=== PATIENT | female | born 1960 | race Caucasian/White ===

== ENCOUNTER 2017-01-07 10:57 | Inpatient (IN) | payer OTHER ==
[~2017-01-07] VITALS: Ht 162.6 cm; Wt 72.6 kg
[~2017-01-07 10:57] MED LIST: BENZ1TAB PO; CLON-352 PO; GABA300 PO; LISI-360 PO; LORTA5 PO; TRAM50 PO; VIST50CA PO; ZIPR40 PO
[2017-01-07 10:58] VITALS: BP 211/125; PULSE 136; RESP 20; TEMP 99.1; O2SAT 98
[2017-01-07 11:21] VITALS: BP 182/112; PULSE 130; RESP 18; TEMP 98.8; O2SAT 97
[2017-01-07] MEDS ORDERED: LORazepam 2 MG/ML VIAL IV PUSH ONE (11:45)
[2017-01-07] MEDS ORDERED: SODIUM CHLOR 0.9% 1000 ML INJ 1,000 ML IV ONE (11:45)
--- NOTE | 2017-01-07 12:06 | RADRPT ---
EXAM DATE/TIME: 01/07/2017 11:54 [place] COMPARISON: No previous studies available for comparison. INDICATIONS : Chest pains with shortness of breath. MEDICAL HISTORY : None. SURGICAL HISTORY : None. ENCOUNTER: Initial ACUITY: 1 day PAIN SCORE: 2/10 LOCATION: Bilateral chest FINDINGS: A single view of the chest demonstrates the lungs to be symmetrically aerated without evidence of mas s, infiltrate or effusion. The cardiomediastinal contours are unremarkable. Osseous structures are intact. CONCLUSION: No acute disease. Nikhil Marie Jr., MD on January 07, 2017 at 12:01 Board Certified Radiologist. This report was verified electronically.
[2017-01-07 12:23] LABS: AUTOMATED NEUTROPHIL # 6.7 TH/MM3 (1.8-7.7); BASOPHIL % 0.2 % (0.0-2.0); EOSINOPHIL % 0.4 % (0.0-4.0); HEMATOCRIT 43.6 % (35.0-46.0); HEMO FLAGS DIFF FINAL; LYMPH % 20.5 % (9.0-44.0); LYMPHOCYTE # 1.9 TH/MM3 (1.0-4.8); MEAN CELL VOLUME 88.9 FL (80.0-100.0); MEAN CORPUSCULAR HEMOGLOBIN 30.7 PG (27.0-34.0); MEAN CORPUSCULAR HGB CONC 34.6 % (32.0-36.0); MONO % 4.7 % (0.0-8.0); NEUT % 74.2 % (16.0-70.0); PLATELET COUNT 254 TH/MM3 (150-450); RED CELL DISTRIBUTION WIDTH 13.6 % (11.6-17.2); WHITE BLOOD COUNT 9.1 TH/MM3 (4.0-11.0)
[2017-01-07 12:56] LABS: ANION GAP 11 MEQ/L (5-15); AST (GOT) 16 U/L (15-37); BICARBONATE 23.4 MEQ/L (21.0-32.0); BLOOD UREA NITROGEN 19 MG/DL (7-18); CHLORIDE 104 MEQ/L (98-107); GLOMERULAR FILTRATION RATE 65 ML/MIN (>89); SODIUM (NA) 138 MEQ/L (136-145)
[2017-01-07 12:57] LABS: ALCOHOL LESS THAN 3 MG/DL (0-5)
[2017-01-07 13:00] LABS: POTASSIUM 2.9 MEQ/L (3.5-5.1)
[2017-01-07 13:02] LABS: ALKALINE PHOSPHATASE 68 U/L (45-117); ALT (GPT) 20 U/L (10-53); TOTAL BILIRUBIN ADULT 0.7 MG/DL (0.2-1.0)
[2017-01-07 13:03] LABS: ACETAMINOPHEN LESS THAN 2.0 MCG/ML (10.0-30.0)
[2017-01-07] MEDS ORDERED: HALOPERIDOL LACTATE 5 MG/ML AMP IM ONE (13:15)
[2017-01-07] MEDS ORDERED: POTASSIUM CHLORIDE 10 MEQ CONTROLLED RELEASE TAB PO ONE (13:15)
[2017-01-07 13:19] VITALS: BP 147/102; PULSE 114; RESP 18; O2SAT 99
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
[2017-01-07 13:53] LABS: BLOOD, URINE SMALL (NEG); COMMENT (UR) CULT NOT INDICATED; CULTURE IF INDICATED CULT NOT INDICATED; GLUCOSE,URINE NEG (NEG); HYALINE CAST, URINE 4 /lpf (RARE); KETONE, URINE 40 mg/dL (NEG); MUCUS URINE FEW /lpf (OCC); NITRITE,URINE NEG (NEG); SQUAMOUS EPITHELIAL CELL URINE 4 /hpf (0-5); URINE COLOR YELLOW (YELLW/STRAW)
[2017-01-07 17:07] VITALS: BP 164/107; PULSE 87; RESP 16; O2SAT 99
[2017-01-07 18:00] VITALS: BP 160/100; PULSE 93; RESP 18
[2017-01-08 02:19] VITALS: BP 160/90; PULSE 108; RESP 18; O2SAT 100
[2017-01-08] MEDS ORDERED: VIST50CA PO (06:22)
[2017-01-08] MEDS ORDERED: LISI10TA3 PO (06:22)
[2017-01-08] MEDS ORDERED: TRAM50TA PO (06:22)
[2017-01-08] MEDS ORDERED: GEOD80CA PO (06:22)
[2017-01-08] MEDS ORDERED: HYDR-3516 PO (06:22)
[2017-01-08] MEDS ORDERED: BENZ0.5T PO (06:22)
[2017-01-08] MEDS ORDERED: CLON0.1T PO (06:22)
[2017-01-08] MEDS ORDERED: GABA600T PO (06:22)
[2017-01-08 06:24] VITALS: BP 190/100; PULSE 92; RESP 18; TEMP 96.8; O2SAT 100
[2017-01-08] MEDS ORDERED: LISINOPRIL 10 MG TAB PO ONE (06:45)
[2017-01-08] MEDS ORDERED: cloNIDine HCL 0.2 MG TAB PO ONE (06:45)
[2017-01-08] MEDS ORDERED: MAGNESIUM HYDROXIDE SUSP 30 ML CUP PO PRN (09:45)
[2017-01-08] MEDS ORDERED: LORazepam 2 MG/ML VIAL IM PRN (09:45)
[2017-01-08] MEDS ORDERED: ALUMINUM/MAGNESIUM/SIMETH 30 ML CUP PO PRN (09:45)
[2017-01-08] MEDS ORDERED: diphenhydrAMINE HCL 50 MG/ML VIAL IM PRN (09:45)
[2017-01-08] MEDS ORDERED: LORazepam 1 MG TAB PO PRN (09:45)
--- NOTE | 2017-01-08 09:59 | HHI.HP ---
Provisional Diagnosis Admission Date Jan 08, 2017 at 09:44 [place]. Schizoaffective disorder, bipolar type Certification of Person's Competence To Provide Express and Informed Consent I have personally examined Lisette Plunkett , a person being served at [facility] on, Jan 08, 2017 09:48. Express and informed consent means consent voluntarily given in writing, by a competent person, after sufficient explanation and disclosure of the subject matter involved to enable the person to make a knowing and willful decision without any element of force, fraud, deceit, duress, or other form of constraint or coercion. This person is 18 years of age or older, is not now known to be incompetent to consent to treatment with a guardian advocate, and does not have a health care surrogate or proxy currently making medical treatment decisions. I have found this person to be one of the following: [] Competent to provide express and informed consent, as defined above, for voluntary admission to this facility and is competent to provide express and informed consent for treatment. He/she has the consistent capacity to make well reasoned, willful, and knowing decisions concerning his or her medical or mental health treatment. The person fully and consistently understands the purpose of the admission for examination/placement and is fully capable of personally exercising all rights assured [place] [X] Incompetent to provide express and informed consent to voluntary admission, and this is incompetent to provide express and informed consent to treatment. The person must be transferred to involuntary status and a petition for a guardian advocate filed with the Circuit Court. [] Refusing to provide express and informed consent to voluntary admission but is competent to provide express and informed consent for treatment. The person must be discharged or transferred to involuntary status. Form shall be completed within 24 hours of a person's arrival at the receiving facility and filed in the clinical record of each person: 1. Admitted on a voluntary basis 2. Permitted to provide express and informed consent to his/her own treatment 3. Allowed to transfer from involuntary to voluntary status 4. Prior to permitting a person to consent to his or her own treatment after having been previously found incompetent to consent to treatment. History of Present Illness Capacity: Lacks Capacity HPI 56-year-old female, grossly psychotic, poor historian, brought in voluntarily by her daughter but placed under a Saab act by [facility] ED physician. Patient continues to demonstrate significant looseness of associations and bizarre nonsensical remarks. 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 Intermittently, she is able to provide pieces of information such as treatment in [place] and a diagnosis of schizoaffective disorder. She also recognizes psychotropic medicines and is willing to take Zyprexa and Klonopin in the emergency department, although she requests Xanax and Ambien. She had difficulty with the examination in the emergency department due to her inability to follow direction. The patient has reportedly been out of medication for weeks. At this moment, she is yelling threats at the psychiatric emergency department staff. She is obviously paranoid and claims to be persecuted by her sister. Review of Systems Psychiatric: COMPLAINS OF: Agitation, Delusions Except as stated in HPI: all other systems reviewed are Neg Past Psych History Psychological trauma history Unknown psychological trauma. Patient does admit to previous psychiatric treatment in [place]. Violence risk - others (6 mos) High Violence risk - self (6 mos) Moderate to high. Substance Abuse History Drugs/Alcohol past 12 months Denied. Patient's toxicology screen is noted to be positive for cannabinoids. Past Family Social History Coded Allergies: No Known Allergies (Verified Adverse Reaction, Unknown, 01/07/17) Reported Medications Benztropine (Benztropine) 0.5 Mg Tab, 1 MG PO BID, #60 TAB 0 Refills 01/08/17 Clonidine (Clonidine) 0.1 Mg Tab, 0.1 MG PO Q12HR for Blood Pressure Management , #60 TAB 0 Refills 01/08/17 Gabapentin (Gabapentin) 600 Mg Tab, 600 MG PO TID, #90 TAB 0 Refills 01/08/17 Hydrocodone/Acetaminophen (Hydrocodone-Acetamin 5-325 mg) 5 Mg-325 Mg Tablet, 1 TAB PO Q6HR for Pain 01/08/17 Hydroxyzine Pamoate (Vistaril) 50 Mg Cap, 50 MG PO Q6HR Y for MILD ANXIETY, CAP 0 Refills 01/08/17 Lisinopril (Lisinopril) 10 Mg Tab, 10 MG PO Q12HR, #30 TAB 0 Refills 01/08/17 Tramadol (Tramadol) 50 Mg Tab, 50 MG PO TID Y for PAIN SCALE 6 TO 10, TAB 0 Refills 01/08/17 Ziprasidone (Geodon) 80 Mg Cap, 160 MG PO HS, #60 CAP 0 Refills 01/08/17 Current Medications Medications (Trade) Dose Ordered Sig/Juliano Route Start Time Stop Time Status Last Admin (ZyPREXA ZYDIS ODT) 10 mg ONCE ONCE PO 01/08/17 09:45 01/08/17 09:46 UNV (KlonoPIN) 1 mg ONCE ONCE PO 01/08/17 09:45 01/08/17 09:46 UNV (Ativan) 1 mg Q6H PRN PO 01/08/17 09:45 UNV (Ativan Inj) 1 mg Q6H PRN IM 01/08/17 09:45 UNV (Benadryl) 50 mg Q6H PRN PO 01/08/17 09:45 UNV (Mag-Al Plus Susp Liq) 30 ml Q6H PRN PO 01/08/17 09:45 UNV Family Psych History Unknown. Patient poor historian. Social History Unemployed. States she is currently homeless. States she has a common law in [place]. Admits to being off medications. Denies substance abuse. Patient's Strengths (min. 2) Resilient and has access to healthcare. Physical Exam GENERAL: SKIN: Warm and dry. HEAD: Normocephalic. EYES: No scleral icterus. No injection or drainage. NECK: Supple, trachea midline. No JVD or lymphadenopathy. CARDIOVASCULAR: Regular rate and rhythm without murmurs, gallops, or rubs. RESPIRATORY: Breath sounds equal bilaterally. No accessory muscle use. GASTROINTESTINAL: Abdomen soft, non-tender, nondistended. MUSCULOSKELETAL: No cyanosis, or edema. BACK: Nontender without obvious deformity. No CVA tenderness. Vital Signs Vital Signs Date Time Temp Pulse Resp B/P (MAP) Pulse Ox O2 Delivery O2 Flow Rate FiO2 01/08/17 06:24 96.8 92 18 () 100 190/100 (130) 01/08/17 02:19 Room Air Lab Results Test 01/07/17 11:50 01/07/17 13:25 White Blood Count 9.1 TH/MM3 Red Blood Count 4.90 MIL/MM3 Hemoglobin 15.1 GM/DL Hematocrit 43.6 % Mean Corpuscular Volume 88.9 FL Mean Corpuscular Hemoglobin 30.7 PG Mean Corpuscular Hemoglobin Concent 34.6 % Red Cell Distribution Width 13.6 % Platelet Count 254 TH/MM3 Mean Platelet Volume 7.7 FL Neutrophils (%) (Auto) 74.2 % Lymphocytes (%) (Auto) 20.5 % Monocytes (%) (Auto) 4.7 % Eosinophils (%) (Auto) 0.4 % Basophils (%) (Auto) 0.2 % Neutrophils # (Auto) 6.7 TH/MM3 Lymphocytes # (Auto) 1.9 TH/MM3 Monocytes # (Auto) 0.4 TH/MM3 Eosinophils # (Auto) 0.0 TH/MM3 Basophils # (Auto) 0.0 TH/MM3 CBC Comment DIFF FINAL Differential Comment Blood Urea Nitrogen 19 MG/DL Creatinine 0.90 MG/DL Random Glucose 140 MG/DL Total Protein 8.3 GM/DL Albumin 4.1 GM/DL Calcium Level 9.1 MG/DL Alkaline Phosphatase 68 U/L Aspartate Amino Transf (AST/SGOT) 16 U/L Alanine Aminotransferase (ALT/SGPT) 20 U/L Total Bilirubin 0.7 MG/DL Sodium Level 138 MEQ/L Potassium Level 2.9 MEQ/L Chloride Level 104 MEQ/L Carbon Dioxide Level 23.4 MEQ/L Anion Gap 11 MEQ/L Estimat Glomerular Filtration Rate 65 ML/MIN Salicylates Level 5.5 MG/DL Acetaminophen Level LESS THAN 2.0 MCG/ML Ethyl Alcohol Level LESS THAN 3 MG/DL Urine Color YELLOW Urine Turbidity CLEAR Urine pH 6.0 Urine Specific [place] 1.017 Urine Protein 30 mg/dL Urine Glucose (UA) NEG mg/dL Urine Ketones 40 mg/dL Urine Occult Blood SMALL Urine Nitrite NEG Urine Bilirubin NEG Urine Urobilinogen 2.0 MG/DL Urine Leukocyte Esterase NEG Urine RBC 2 /hpf Urine WBC 3 /hpf Urine Squamous Epithelial Cells 4 /hpf Urine Hyaline Casts 4 /lpf Urine Mucus FEW /lpf Microscopic Urinalysis Comment CULT NOT INDICATED Urine Opiates Screen NEG Urine Barbiturates Screen NEG Urine Amphetamines Screen NEG Urine Benzodiazepines Screen NEG Urine Cocaine Screen NEG Urine Cannabinoids Screen POS Mental Status Examination Appearance: Disheveled Consciousness: Alert Orientation: Person Motor Activity: Normal gait Speech: Rapid Language: Adequate Fund of Knowledge: Adequate Attention and Concentration: Inadequate Memory: Impaired Mood: Oppositional, Irritable Affect: Irritable, Labile Thought Process & Associations: Loose associations Thought Content: Appropriate Hallucination Type: None Delusion Type: Bizarre, Paranoid Suicidal Ideation: No Suicidal Plan: No Suicidal Intention: No Homicidal Ideation: Yes Homicidal Plan: No Homicidal Intention: No Insight: Poor Judgment: Poor Assessment & Plan Problem List: (1) Schizoaffective disorder, bipolar type ICD Codes: F25.0 - Schizoaffective disorder, bipolar type Assessment & Plan Estimated LOS: days. 56-year-old female Saab acted by emergency department physician for highly agitated highly psychotic behavior. Patient remains grossly psychotic and is yelling, threatening staff, obviously unable to care for herself and very disorganized. For these reasons she is being admitted for further evaluation and treatment. In the emergency department, we are ordering Klonopin and Zyprexa to attempt to reduce this patient's agitation and anxiety. This physician has also ordered a CBC and comprehensive metabolic panel to determine if the patient has any infectious process or metabolic process which might be causing or contributing to her psychosis. Additionally, this physician ordered a thyroid-stimulating hormone level, vitamin B-12 level and vitamin D level to determine if any deficiency in these areas is causing or contributing to her psychosis. This physician notes the patient has a history of hypertension and placed her back on antihypertensive medicines as well as consulting the hospitalist for further evaluation and treatment. Additionally, an EKG was ordered to determine the patient's cardiac conduction status prior to making significant changes in psychotropic medicines, which might adversely affect her conduction system. This physician spoke with the patient's nurse, Kirk, regarding the patient's recent behavior and apparently the patient has been yelling and threatening staff and making little or no sense 4 hours. Finally, this physician is requesting case management become involved for further information gathering and disposition planning. Francisco Morrison MD Jan 08, 2017 09:59
[2017-01-08] MEDS ORDERED: clonazePAM 1 MG TAB PO ONE (10:00)
[2017-01-08] MEDS ORDERED: OLANZapine ODT 10 MG TAB PO ONE (10:00)
[2017-01-08 10:55] VITALS: BP_SYST 119; BP_SYST 95; BP_DIAS 18; BP_DIAS 82; PULSE 95; RESP 18; TEMP 97.2; O2SAT 99
--- NOTE | 2017-01-08 10:57 | HHI.PYPN ---
Subjective Remarks Patient was seen today for psychiatric reevaluation, patient is calm, cooperative, and a good spirits, has depressive symptoms, denies anxiety, patient reports that she is motivated to be discharged back home with her life, motivated to continue her indications and follow-up. Oriented 3, some confusion at times. No agitation or aggressive behavior reported in the last 24 hours. Review of Systems Except as stated in HPI: all other systems reviewed are Neg Mental Status Examination Appearance: Disheveled Consciousness: Alert Orientation: Person Motor Activity: Normal gait Speech: Rapid Language: Adequate Fund of Knowledge: Adequate Attention and Concentration: Inadequate Memory: Impaired Mood: Oppositional, Irritable Affect: Irritable, Labile Thought Process & Associations: Loose associations Thought Content: Appropriate Hallucination Type: None Delusion Type: Bizarre, Paranoid Suicidal Ideation: No Suicidal Plan: No Suicidal Intention: No Homicidal Ideation: Yes Homicidal Plan: No Homicidal Intention: No Insight: Poor Judgment: Poor Results Labs Test 01/07/17 11:50 01/07/17 13:25 White Blood Count 9.1 TH/MM3 Red Blood Count 4.90 MIL/MM3 Hemoglobin 15.1 GM/DL Hematocrit 43.6 % Mean Corpuscular Volume 88.9 FL Mean Corpuscular Hemoglobin 30.7 PG Mean Corpuscular Hemoglobin Concent 34.6 % Red Cell Distribution Width 13.6 % Platelet Count 254 TH/MM3 Mean Platelet Volume 7.7 FL Neutrophils (%) (Auto) 74.2 % Lymphocytes (%) (Auto) 20.5 % Monocytes (%) (Auto) 4.7 % Eosinophils (%) (Auto) 0.4 % Basophils (%) (Auto) 0.2 % Neutrophils # (Auto) 6.7 TH/MM3 Lymphocytes # (Auto) 1.9 TH/MM3 Monocytes # (Auto) 0.4 TH/MM3 Eosinophils # (Auto) 0.0 TH/MM3 Basophils # (Auto) 0.0 TH/MM3 CBC Comment DIFF FINAL Differential Comment Blood Urea Nitrogen 19 MG/DL Creatinine 0.90 MG/DL Random Glucose 140 MG/DL Total Protein 8.3 GM/DL Albumin 4.1 GM/DL Calcium Level 9.1 MG/DL Alkaline Phosphatase 68 U/L Aspartate Amino Transf (AST/SGOT) 16 U/L Alanine Aminotransferase (ALT/SGPT) 20 U/L Total Bilirubin 0.7 MG/DL Sodium Level 138 MEQ/L Potassium Level 2.9 MEQ/L Chloride Level 104 MEQ/L Carbon Dioxide Level 23.4 MEQ/L Anion Gap 11 MEQ/L Estimat Glomerular Filtration Rate 65 ML/MIN Salicylates Level 5.5 MG/DL Acetaminophen Level LESS THAN 2.0 MCG/ML Ethyl Alcohol Level LESS THAN 3 MG/DL Urine Color YELLOW Urine Turbidity CLEAR Urine pH 6.0 Urine Specific [place] 1.017 Urine Protein 30 mg/dL Urine Glucose (UA) NEG mg/dL Urine Ketones 40 mg/dL Urine Occult Blood SMALL Urine Nitrite NEG Urine Bilirubin NEG Urine Urobilinogen 2.0 MG/DL Urine Leukocyte Esterase NEG Urine RBC 2 /hpf Urine WBC 3 /hpf Urine Squamous Epithelial Cells 4 /hpf Urine Hyaline Casts 4 /lpf Urine Mucus FEW /lpf Microscopic Urinalysis Comment CULT NOT INDICATED Urine Opiates Screen NEG Urine Barbiturates Screen NEG Urine Amphetamines Screen NEG Urine Benzodiazepines Screen NEG Urine Cocaine Screen NEG Urine Cannabinoids Screen POS Vitals/IOs Vital Signs Date Time Temp Pulse Resp B/P (MAP) Pulse Ox O2 Delivery O2 Flow Rate FiO2 01/08/17 06:24 96.8 92 18 () 100 190/100 (130) 01/08/17 02:19 Room Air Assessment & Plan Problem List: (1) Schizoaffective disorder, bipolar type ICD Codes: F25.0 - Schizoaffective disorder, bipolar type Assessment & Plan Estimated LOS: days Justification for Cont. Inpt. Patient does not meet criteria for involuntary psychiatric admission. She is psychiatrically stable to be discharged. Jake Blevins MD Jan 08, 2017 10:57
[2017-01-08 11:15] VITALS: BP 89/61; PULSE 85; RESP 17; TEMP 97.6; O2SAT 97
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
[2017-01-08] MEDS: GABAPENTIN 300 MG CAP PO SCH ×2 (13:00→18:33)
[2017-01-08] MEDS: traMADol HCL 50 MG TAB PO PRN ×2 (13:06→18:34)
[2017-01-08] MEDS ORDERED: FLUMAZENIL 0.5 MG/5 ML VIAL IV PUSH PRN (15:00)
[2017-01-08] MEDS ORDERED: LORazepam 2 MG/ML VIAL IV PUSH PRN ×4 (15:00)
--- NOTE | 2017-01-08 18:01 | PD.CONS ---
HPI Service [facility] Hospitalists Consult Requested By Dr Morrison Reason for Consult Medical Management Primary Care Physician Unknown Diagnoses: History of Present Illness This is a 56-year-old female with past medical history significant for also arthritis, fibromyalgia, hypertension, schizoaffective disorder and questionable hepatitis C who presents to [facility] brought in voluntarily by her daughter but placed under Saab act by [facility] ED physician. Apparently the patient had some change in mental status with significant looseness of association and bizarre nonsensical remarks. As per documentation the patient was stating that she is a Edd[employer] and works for the [employer]. The patient also was stating that her will not be writing a book. The patient complains of right lateral knee pain, however denies any chest pain, short of breath, nausea, vomiting, abdominal pain, diarrhea, dysuria. Review of Systems As per history of present illness, other systems reviewed by me and negative Past Family Social History Allergies: Coded Allergies: No Known Allergies (Verified Allergy, Unknown, 01/08/17) Past Medical History 1. Bipolar disorder. 2. Depression. 3. History of fibromyalgia. 4. Hepatitis C 5. Posttraumatic stress disorder. 6. Hypertension Past Surgical History 1. . Reported Medications Reported Meds & Active Scripts Active Reported Benztropine (Benztropine Mesylate) 0.5 Mg Tab 1 Mg PO BID Clonidine (Clonidine HCl) 0.1 Mg Tab 0.1 Mg PO Q12HR Gabapentin 600 Mg Tab 600 Mg PO TID Hydrocodone-Acetamin 5-325 mg (Hydrocodone/Acetaminophen) 5 Mg-325 Mg Tablet 1 Tab PO Q6HR Vistaril (Hydroxyzine Pamoate) 50 Mg Cap 50 Mg PO Q6HR PRN Lisinopril 10 Mg Tab 10 Mg PO Q12HR Tramadol (Tramadol HCl) 50 Mg Tab 50 Mg PO TID PRN Geodon (Ziprasidone) 80 Mg Cap 160 Mg PO HS Active Ordered Medications Current Medications Medications (Trade) Dose Ordered Sig/Juliano Route Start Time Stop Time Status Last Admin (Benadryl) 50 mg Q6H PRN PO 01/08/17 09:45 (Benadryl Inj) 50 mg Q6H PRN IM 01/08/17 09:45 (Tylenol) 650 mg Q4H PRN PO 01/08/17 09:45 (Milk Of Magnesia Liq) 30 ml DAILY PRN PO 01/08/17 09:45 (Mag-Al Plus Susp Liq) 30 ml Q6H PRN PO 01/08/17 09:45 (Catapres) 0.1 mg Q12HR PO 01/08/17 21:00 (Neurontin) 600 mg TID PO 01/08/17 13:00 01/08/17 13:00 (Prinivil) 10 mg Q12HR PO 01/08/17 21:00 (Ultram) 50 mg TID PRN PO 01/08/17 10:00 01/08/17 13:06 (Abilify) 10 mg HS PO 01/08/17 21:00 (Romazicon Inj) 0.2 mg Q1M PRN IV PUSH 01/08/17 15:00 (Ativan) 1 mg Q4H PRN PO 01/08/17 15:00 (Ativan Inj) 1 mg Q4H PRN IV PUSH 01/08/17 15:00 (Ativan) 2 mg Q2H PRN PO 01/08/17 15:00 (Ativan Inj) 2 mg Q2H PRN IV PUSH 01/08/17 15:00 (Ativan Inj) 2 mg Q1H PRN IV PUSH 01/08/17 15:00 (Ativan Inj) 2 mg Q15M PRN IV PUSH 01/08/17 15:00 Family History The patient states that she is adopted so she does not know her family history. Social History The patient states that she smokes one pack per day, states that she drinks alcohol occasionally as well as she smokes marijuana occasionally as well. Physical Exam Vital Signs Vital Signs Date Time Temp Pulse Resp B/P (MAP) Pulse Ox O2 Delivery O2 Flow Rate FiO2 01/08/17 11:44 01/08/17 11:15 97.6 85 17 89/61 (70) 97 01/08/17 10:55 97.2 95 18 119/82 (94) 99 Room Air 01/08/17 06:24 96.8 92 18 () 100 190/100 (130) 01/08/17 02:19 108 18 160/90 (113) 100 Room Air 01/07/17 18:00 93 18 160/100 (120) Room Air Physical Exam GENERAL: This is a well-nourished, well-developed patient, in no apparent distress. SKIN: No rashes, ecchymoses or lesions. Cool and dry. HEAD: Atraumatic. Normocephalic. No temporal or scalp tenderness. EYES: Pupils equal round and reactive. Extraocular motions intact. No scleral icterus. No injection or drainage. ENT: Nose without bleeding, purulent drainage or septal hematoma. Throat without erythema, tonsillar hypertrophy or exudate. Uvula midline. Airway patent. NECK: Trachea midline. No JVD or lymphadenopathy. Supple, nontender, no meningeal signs. CARDIOVASCULAR: Regular rate and rhythm without murmurs, gallops, or rubs. RESPIRATORY: Clear to auscultation. Breath sounds equal bilaterally. No wheezes , rales, or rhonchi. GASTROINTESTINAL: Abdomen soft, non-tender, nondistended. No hepato-splenomegaly , or palpable masses. No guarding. MUSCULOSKELETAL: Extremities without clubbing, cyanosis, or edema. Mild tenderness to palpation of bilateral knees, effusion, or edema noted. No calf tenderness. Negative Homans sign bilaterally. NEUROLOGICAL: Awake and alert. Cranial nerves II through XII intact. Motor and sensory grossly within normal limits. Five out of 5 muscle strength in all muscle groups. Normal speech. Result Diagram: 01/07/17 1150 01/07/17 1150 Imaging Last Impressions Chest X-Ray 01/07/17 0000 Signed Impressions: Service Date/Time: December 11:54 - CONCLUSION: No acute disease. Nikhil Marie Jr., MD Assessment and Plan Problem List: (1) Schizoaffective disorder, bipolar type ICD Code: F25.0 - Schizoaffective disorder, bipolar type Plan: Management as per psychiatry. (2) Hypokalemia ICD Code: E87.6 - Hypokalemia Plan: Replaced, monitor BMP. (3) Hyperglycemia ICD Code: R73.9 - Hyperglycemia, unspecified Plan: Check hemoglobin A1c. (4) Osteoarthritis ICD Code: M19.90 - Unspecified osteoarthritis, unspecified site Plan: Tylenol as needed for pain. (5) HTN (hypertension) ICD Code: I10 - Essential (primary) hypertension Plan: Tenial home antihypertensive medications. The patient currently on lisinopril and clonidine. (6) Tobacco abuse ICD Code: Z72.0 - Tobacco use Plan: By smoking cessation. Will add nicotine patch. (7) Hepatitis C ICD Code: B19.20 - Unspecified viral hepatitis C without hepatic coma Plan: Check hepatitis profile. LFTs within normal range. Assessment and Plan DVT plexus: Encourage ambulation. Code Status Full code Discussed Condition With Patient, RN. Moustapha Victoria MD Jan 08, 2017 18:01
[2017-01-08 18:02] VITALS: BP 89/61; PULSE 85; RESP 17; TEMP 97.6; O2SAT 97
[2017-01-08] MEDS: LORazepam 1 MG TAB PO PRN ×2 (18:34→22:00)
[2017-01-08] MEDS: ACETAMINOPHEN 325 MG TAB PO PRN (19:41)
[2017-01-08] MEDS: cloNIDine HCL 0.1 MG TAB PO SCH (21:00)
[2017-01-08] MEDS: LISINOPRIL 10 MG TAB PO SCH (21:00)
[2017-01-08] MEDS: ARIPiprazole 10 MG TAB PO SCH (21:12)
[2017-01-08] MEDS: diphenhydrAMINE HCL 50 MG CAP PO PRN (22:00)
[2017-01-09] MEDS: LORazepam 1 MG TAB PO PRN ×3 (02:33→20:05)
[2017-01-09 05:51] VITALS: BP 119/65; PULSE 83; RESP 18; TEMP 98; O2SAT 95
[2017-01-09 07:21] LABS: AUTOMATED NEUTROPHIL # 4.4 TH/MM3 (1.8-7.7); BASOPHIL % 0.5 % (0.0-2.0); EOSINOPHIL # 0.1 TH/MM3 (0-0.4); EOSINOPHIL % 2.2 % (0.0-4.0); HEMATOCRIT 39.3 % (35.0-46.0); LYMPH % 28.8 % (9.0-44.0); MEAN CELL VOLUME 88.7 FL (80.0-100.0); MEAN CORPUSCULAR HEMOGLOBIN 30.8 PG (27.0-34.0); MEAN CORPUSCULAR HGB CONC 34.7 % (32.0-36.0); MONO % 4.5 % (0.0-8.0); PLATELET COUNT 203 TH/MM3 (150-450); RED BLOOD COUNT 4.43 MIL/MM3 (4.00-5.30); RED CELL DISTRIBUTION WIDTH 13.7 % (11.6-17.2); WHITE BLOOD COUNT 6.9 TH/MM3 (4.0-11.0)
[2017-01-09 07:30] LABS: HEMO FLAGS AUTO DIFF
[2017-01-09 08:09] LABS: ANION GAP 6 MEQ/L (5-15); AST (GOT) 26 U/L (15-37); BICARBONATE 24.4 MEQ/L (21.0-32.0); BLOOD UREA NITROGEN 19 MG/DL (7-18); CHLORIDE 106 MEQ/L (98-107); GLOMERULAR FILTRATION RATE 74 ML/MIN (>89); SODIUM (NA) 136 MEQ/L (136-145)
[2017-01-09 08:19] LABS: ALKALINE PHOSPHATASE 58 U/L (45-117); ALT (GPT) 21 U/L (10-53); HDL CHOLESTEROL 64.9 MG/DL (40.0-60.0); LDL CHOLESTEROL 99 MG/DL (0-99); TOTAL BILIRUBIN ADULT 0.2 MG/DL (0.2-1.0)
[2017-01-09] MEDS: GABAPENTIN 300 MG CAP PO SCH ×3 (08:41→17:50)
[2017-01-09] MEDS: cloNIDine HCL 0.1 MG TAB PO SCH (08:41)
[2017-01-09] MEDS: LISINOPRIL 10 MG TAB PO SCH (08:41)
[2017-01-09 08:49] LABS: PLATELET ESTIMATE SMEAR NORMAL (NORMAL); PLATELET MORPHOLOGY NORMAL (NORMAL); SCAN/DIFF AUTO DIFF CONFIRMED
[2017-01-09] MEDS: traMADol HCL 50 MG TAB PO PRN ×2 (09:33→20:05)
--- NOTE | 2017-01-09 12:45 | HHI.PYPN ---
Subjective Remarks Pt seen and discussed with staff. She has been pacing unit talking to self. She is disorganized and responding to internal stimuli. She is on CIWA (most recent score CIWA=9, received ativan 1mg ). She states that she was admitted under "informer status" and that there is "high Matthew stuff" that requires her attention. She rambles and is floridly delusional with loose associations. She denies SI/HI. Mental Status Examination Appearance: Disheveled Consciousness: Alert Orientation: Person Motor Activity: Normal gait Speech: Rapid Language: Adequate Fund of Knowledge: Adequate Attention and Concentration: Inadequate Memory: Impaired Mood: Oppositional, Irritable Affect: Irritable, Labile Thought Process & Associations: Loose associations Thought Content: Appropriate Hallucination Type: None Delusion Type: Bizarre, Paranoid Suicidal Ideation: No Suicidal Plan: No Suicidal Intention: No Homicidal Ideation: No Homicidal Plan: No Homicidal Intention: No Insight: Poor Judgment: Poor Results Labs Test 01/09/17 06:23 White Blood Count 6.9 TH/MM3 Red Blood Count 4.43 MIL/MM3 Hemoglobin 13.6 GM/DL Hematocrit 39.3 % Mean Corpuscular Volume 88.7 FL Mean Corpuscular Hemoglobin 30.8 PG Mean Corpuscular Hemoglobin Concent 34.7 % Red Cell Distribution Width 13.7 % Platelet Count 203 TH/MM3 Mean Platelet Volume 8.3 FL Neutrophils (%) (Auto) 64.0 % Lymphocytes (%) (Auto) 28.8 % Monocytes (%) (Auto) 4.5 % Eosinophils (%) (Auto) 2.2 % Basophils (%) (Auto) 0.5 % Neutrophils # (Auto) 4.4 TH/MM3 Lymphocytes # (Auto) 2.0 TH/MM3 Monocytes # (Auto) 0.3 TH/MM3 Eosinophils # (Auto) 0.1 TH/MM3 Basophils # (Auto) 0.0 TH/MM3 CBC Comment AUTO DIFF Differential Comment AUTO DIFF CONFIRMED Platelet Estimate NORMAL Platelet Morphology Comment NORMAL Blood Urea Nitrogen 19 MG/DL Creatinine 0.81 MG/DL Random Glucose 81 MG/DL Total Protein 7.6 GM/DL Albumin 3.8 GM/DL Calcium Level 8.9 MG/DL Alkaline Phosphatase 58 U/L Aspartate Amino Transf (AST/SGOT) 26 U/L Alanine Aminotransferase (ALT/SGPT) 21 U/L Total Bilirubin 0.2 MG/DL Sodium Level 136 MEQ/L Potassium Level 4.0 MEQ/L Chloride Level 106 MEQ/L Carbon Dioxide Level 24.4 MEQ/L Anion Gap 6 MEQ/L Estimat Glomerular Filtration Rate 74 ML/MIN Triglycerides Level 124 MG/DL Cholesterol Level 189 MG/DL LDL Cholesterol 99 MG/DL HDL Cholesterol 64.9 MG/DL Cholesterol/HDL Ratio 2.91 RATIO Vitamin B12 Level 560 PG/ML 25-Hydroxy Vitamin D Total 10.6 ng/ML Thyroid Stimulating Hormone 3rd Gen 0.847 uIU/ML Vitals/IOs Vital Signs Date Time Temp Pulse Resp B/P (MAP) Pulse Ox O2 Delivery O2 Flow Rate FiO2 01/09/17 05:51 98.0 83 18 119/65 (83) 95 01/08/17 10:55 Room Air Assessment & Plan Problem List: (1) Schizoaffective disorder, bipolar type ICD Codes: F25.0 - Schizoaffective disorder, bipolar type Assessment & Plan Continue current tx plan. Estimated LOS: days Justification for Cont. Inpt. impairments in pscychosis Orly Dunn MD Jan 09, 2017 12:45
--- NOTE | 2017-01-09 15:50 | HHI.PR ---
Subjective Remarks patient has no complaints other than BL knee pain denies cp/sob bp noted to be low Objective Vitals Vital Signs Date Time Temp Pulse Resp B/P (MAP) Pulse Ox O2 Delivery O2 Flow Rate FiO2 01/09/17 05:51 98.0 83 18 119/65 (83) 95 01/08/17 18:02 97.6 85 17 89/61 (70) 97 Manual Cuff/Auscultation Result Diagram: 01/09/17 0623 01/09/17 0623 Imaging Last Impressions Chest X-Ray 01/07/17 0000 Signed Impressions: Service Date/Time: December 11:54 - CONCLUSION: No acute disease. Nikhil Marie Jr., MD Objective Remarks AAOx3 PERRLA Clear lungs BL S1S2 RRR, no MRG abd soft, nt, nd A/P Problem List: (1) Schizoaffective disorder, bipolar type ICD Code: F25.0 - Schizoaffective disorder, bipolar type Plan: Management as per psychiatry. (2) Hypokalemia ICD Code: E87.6 - Hypokalemia Plan: Replaced, monitor BMP. (3) Hyperglycemia ICD Code: R73.9 - Hyperglycemia, unspecified Plan: Check hemoglobin A1c. (4) Osteoarthritis ICD Code: M19.90 - Unspecified osteoarthritis, unspecified site Plan: Tramadol as needed for pain. (5) HTN (hypertension) ICD Code: I10 - Essential (primary) hypertension Plan: HOld antihypertensive medications. If bp trends up will reintroduce slowly (6) Tobacco abuse ICD Code: Z72.0 - Tobacco use Plan: By smoking cessation. Will add nicotine patch. (7) Hepatitis C ICD Code: B19.20 - Unspecified viral hepatitis C without hepatic coma Plan: Check hepatitis profile. LFTs within normal range. Problem Qualifiers (1) HTN (hypertension): Qualified Codes: I10 - Essential (primary) hypertension Moustapha Victoria MD Jan 09, 2017 15:50
--- NOTE | 2017-01-09 15:59 | EKG ---
Date Performed: 01/09/2017 Time Performed: 09:55:52 PTAGE: 56 years EKG: Sinus rhythm LEFT ANTERIOR FASCICULAR BLOCK Compared to prior tracing no significant change ABNORMAL ECG PREVIOUS TRACING : 03/24/2014 23.34 DOCTOR: Michael Hyde Interpretating Date/Time 01/09/2017 15:58:02
[2017-01-09 17:56] VITALS: BP 165/86; PULSE 99; RESP 19; TEMP 98.2; O2SAT 98
[2017-01-09] MEDS: ARIPiprazole 10 MG TAB PO SCH (20:05)
[2017-01-10 05:45] VITALS: BP 178/100; PULSE 97; RESP 18; TEMP 97.9; O2SAT 98
[2017-01-10] MEDS: LORazepam 1 MG TAB PO PRN ×2 (06:29→15:28)
[2017-01-10] MEDS: GABAPENTIN 300 MG CAP PO SCH ×3 (08:33→18:09)
[2017-01-10] MEDS: traMADol HCL 50 MG TAB PO PRN ×2 (08:58→19:47)
[2017-01-10] MEDS: NICOTINE 21 MG/24 HR PATCH T-DERMAL SCH (09:30)
[2017-01-10 09:50] LABS: HEMOGLOBIN A1a 1.3 %; HEMOGLOBIN A1b 0.8 %; HEMOGLOBIN Ao 85.2 %; HEMOGLOBIN P3 3.8 %
--- NOTE | 2017-01-10 10:46 | HHI.PYPN ---
Subjective Remarks Pt seen and discussed with staff. She was agitated yesterday afternoon, but this morning has been less labile. She remains delusional and insists that she has 23 broken bones. Thought process remains disorganized. She is compliant with medications. CIWA was 7 this morning. No SI/HI. She reports feeling better today and that sleep was improved. She continues to ramble about the [employer] and [employer] and the service that she has provided to the [place] "all for free". Mental Status Examination Appearance: Disheveled Consciousness: Alert Orientation: Person Motor Activity: Normal gait Speech: Rapid Language: Adequate Fund of Knowledge: Adequate Attention and Concentration: Inadequate Memory: Impaired Mood: Oppositional, Irritable Affect: Irritable, Labile Thought Process & Associations: Loose associations Thought Content: Appropriate Hallucination Type: None Delusion Type: Bizarre, Paranoid Suicidal Ideation: No Suicidal Plan: No Suicidal Intention: No Homicidal Ideation: No Homicidal Plan: No Homicidal Intention: No Insight: Poor Judgment: Poor Results Vitals/IOs Vital Signs Date Time Temp Pulse Resp B/P (MAP) Pulse Ox O2 Delivery O2 Flow Rate FiO2 01/10/17 05:45 97.9 97 18 178/100 (126) 98 01/08/17 10:55 Room Air Assessment & Plan Problem List: (1) Schizoaffective disorder, bipolar type ICD Codes: F25.0 - Schizoaffective disorder, bipolar type Assessment & Plan Continue current tx plan. Estimated LOS: days Justification for Cont. Inpt. impairments in reality testing Orly Dunn MD Jan 10, 2017 10:46
--- NOTE | 2017-01-10 13:29 | HHI.PR ---
Subjective Remarks Patient c/o BL knee pain which is not responded to tramadol. Denies fevers, chills. Denies chest pain or shortness of breath Objective Vitals Vital Signs Date Time Temp Pulse Resp B/P (MAP) Pulse Ox O2 Delivery O2 Flow Rate FiO2 01/10/17 05:45 97.9 97 18 178/100 (126) 98 01/09/17 17:56 98.2 99 19 165/86 (112) 98 Result Diagram: 01/09/17 0623 01/09/17 0623 Imaging Last Impressions Chest X-Ray 01/07/17 0000 Signed Impressions: Service Date/Time: , January 07, 2017 11:54 - CONCLUSION: No acute disease. Nikhil Marie Jr., MD Objective Remarks AAOx3 PERRLA Clear lungs BL S1S2 RRR, no MRG abd soft, nt, nd Procedures none Medications and IVs Current Medications Medications (Trade) Dose Ordered Sig/Juliano Route Start Time Stop Time Status Last Admin (Benadryl) 50 mg Q6H PRN PO 01/08/17 09:45 01/08/17 22:00 (Benadryl Inj) 50 mg Q6H PRN IM 01/08/17 09:45 (Tylenol) 650 mg Q4H PRN PO 01/08/17 09:45 01/08/17 19:41 (Milk Of Magnesia Liq) 30 ml DAILY PRN PO 01/08/17 09:45 (Mag-Al Plus Susp Liq) 30 ml Q6H PRN PO 01/08/17 09:45 (Catapres) 0.1 mg Q12HR PO 01/08/17 21:00 Future Hold 01/09/17 08:41 (Neurontin) 600 mg TID PO 01/08/17 13:00 01/10/17 12:30 (Prinivil) 10 mg Q12HR PO 01/08/17 21:00 Future hold 01/09/17 08:41 (Ultram) 50 mg TID PRN PO 01/08/17 10:00 01/10/17 08:58 (Abilify) 10 mg HS PO 01/08/17 21:00 01/09/17 20:05 (Romazicon Inj) 0.2 mg Q1M PRN IV PUSH 01/08/17 15:00 (Ativan) 1 mg Q4H PRN PO 01/08/17 15:00 01/10/17 06:29 (Ativan Inj) 1 mg Q4H PRN IV PUSH 01/08/17 15:00 (Ativan) 2 mg Q2H PRN PO 01/08/17 15:00 (Ativan Inj) 2 mg Q2H PRN IV PUSH 01/08/17 15:00 (Ativan Inj) 2 mg Q1H PRN IV PUSH 01/08/17 15:00 (Ativan Inj) 2 mg Q15M PRN IV PUSH 01/08/17 15:00 (Habitrol 21 Mg Patch.24 Hr) 1 patch DAILY T-DERMAL 01/10/17 09:30 Miscellaneous Information 1 DAILY T-DERMAL 01/11/17 09:00 A/P Problem List: (1) Schizoaffective disorder, bipolar type ICD Code: F25.0 - Schizoaffective disorder, bipolar type Plan: Management as per psychiatry. (2) Hypokalemia ICD Code: E87.6 - Hypokalemia Plan: Replaced, monitor BMP. 01/10 level normal. (3) Hyperglycemia ICD Code: R73.9 - Hyperglycemia, unspecified Plan: 01/10 Hemoglon A1c is 5.4, likely stress related. Diabetes ruled out. (4) Osteoarthritis ICD Code: M19.90 - Unspecified osteoarthritis, unspecified site Status: Chronic Plan: 01/10 Tramadol not working. Will start on po toradol and obtain BL Knee x rays. (5) HTN (hypertension) ICD Code: I10 - Essential (primary) hypertension Plan: Hold antihypertensive medications. If bp trends up will reintroduce slowly. 01/10 BP severely elevated and uncontrolled, resume lisinopril, will write for Clonidine as needed. Adjust BP meds. (6) Tobacco abuse ICD Code: Z72.0 - Tobacco use Plan: Advised smoking cessation. Continue nicotine patch. (7) Hepatitis C ICD Code: B19.20 - Unspecified viral hepatitis C without hepatic coma Plan: Hepatitis profile ordered and pending. LFTs within normal range. Assessment and Plan Gi prophylaxis: Add PPI since will start on Toradol orally. DVT prophylaxis: Encourage ambulation Problem Qualifiers (1) Osteoarthritis: Qualified Codes: M17.0 - Bilateral primary osteoarthritis of knee (2) HTN (hypertension): Qualified Codes: I10 - Essential (primary) hypertension Moustapha Victoria MD Jan 10, 2017 13:29
[2017-01-10] MEDS: KETOROLAC TROMETHAMINE 10 MG TAB PO SCH ×3 (14:30→23:38)
[2017-01-10] MEDS ORDERED: cloNIDine HCL 0.1 MG TAB PO ONE (15:45)
[2017-01-10 15:47] VITALS: BP 168/110; PULSE 90; RESP 18; TEMP 98.6; O2SAT 98
[2017-01-10 17:14] VITALS: BP 157/90; PULSE 92
[2017-01-10 19:38] VITALS: BP 149/88; PULSE 94
[2017-01-10] MEDS: cloNIDine HCL 0.1 MG TAB PO SCH (20:57)
[2017-01-10] MEDS: ARIPiprazole 10 MG TAB PO SCH (20:57)
[2017-01-10] MEDS: LISINOPRIL 10 MG TAB PO SCH (20:58)
[2017-01-10] MEDS: FAMOTIDINE 20 MG TAB PO SCH (20:58)
[2017-01-11 00:05] VITALS: BP_SYST 170; BP_SYST 192; BP_DIAS 100; BP_DIAS 114
[2017-01-11] MEDS ORDERED: cloNIDine HCL 0.1 MG TAB PO ONE (00:30)
[2017-01-11] MEDS: traMADol HCL 50 MG TAB PO PRN ×2 (03:31→15:05)
[2017-01-11] MEDS: LORazepam 1 MG TAB PO PRN (05:46)
[2017-01-11] MEDS: KETOROLAC TROMETHAMINE 10 MG TAB PO SCH ×4 (05:47→23:39)
[2017-01-11 06:00] VITALS: BP 152/88; PULSE 91; RESP 18; TEMP 97.2; O2SAT 96
[2017-01-11] MEDS: REMOVE OLD PATCH T-DERMAL SCH (09:00)
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
[2017-01-11] MEDS: LISINOPRIL 10 MG TAB PO SCH ×2 (09:07→20:39)
[2017-01-11] MEDS: GABAPENTIN 300 MG CAP PO SCH ×3 (09:08→17:32)
[2017-01-11] MEDS: CHOLECALCIFEROL (VIT D3) 1000 UNIT TAB PO SCH (09:08)
[2017-01-11] MEDS: cloNIDine HCL 0.1 MG TAB PO SCH ×3 (09:08→21:41)
[2017-01-11] MEDS: LORazepam 2 MG TAB PO PRN ×2 (09:10→15:06)
[2017-01-11] MEDS: NICOTINE 21 MG/24 HR PATCH T-DERMAL SCH (09:11)
--- NOTE | 2017-01-11 10:32 | HHI.PR ---
Subjective Remarks in no acute distress. denies chest pain, sob or headache. BP trend noted. d/w the RN. Objective Vitals Vital Signs Date Time Temp Pulse Resp B/P (MAP) Pulse Ox O2 Delivery O2 Flow Rate FiO2 01/11/17 06:00 97.2 91 18 152/88 (109) 96 01/11/17 00:05 192/114 (140) 170/100 (123) 01/10/17 19:38 94 149/88 (108) 01/10/17 17:14 92 157/90 (112) 01/10/17 15:47 98.6 90 18 168/110 (129) 98 Result Diagram: 01/09/17 0623 01/09/17 0623 Imaging Last Impressions Chest X-Ray 01/07/17 0000 Signed Impressions: Service Date/Time: , January 07, 2017 11:54 - CONCLUSION: No acute disease. Nikhil Marie Jr., MD Objective Remarks GENERAL: This is a well-nourished, well-developed patient, in no apparent distress. CARDIOVASCULAR: Regular rate and regular rhythm without murmurs, gallops, or rubs. RESPIRATORY: Clear to auscultation. Breath sounds equal bilaterally. No wheezes , rales, or rhonchi. GASTROINTESTINAL: Abdomen soft, non-tender, nondistended. Normal, active bowel sounds MUSCULOSKELETAL: Extremities without clubbing, cyanosis, or edema. NEURO: awake and alert. Medications and IVs Current Medications Lorazepam (Ativan Inj) 1 mg ONCE ONCE IV PUSH Last administered on 01/07/17 11:54; Start 01/07/17 at 11:45; Stop 01/07/17 at 11:46; Status DC Sodium Chloride 1,000 ml @ 999 mls/hr BOLUS ONCE IV Last administered on 11:54; Start 01/07/17 at 11:45; Stop 01/07/17 at 12:45; Status DC Haloperidol Lactate (Haldol Inj) 5 mg ONCE ONCE IM Last administered on 13:18; Start 01/07/17 at 13:15; Stop 01/07/17 at 13:16; Status DC Potassium Chloride (KCl) 30 meq ONCE ONCE PO Last administered on 01/07/17 13:19; Start 01/07/17 at 13:15; Stop 01/07/17 at 13:16; Status DC Lisinopril (Prinivil) 10 mg ONCE ONCE PO Last administered on 01/08/17 06:40 ; Start 01/08/17 at 06:45; Stop 01/08/17 at 06:46; Status DC Clonidine (Catapres) 0.2 mg ONCE ONCE PO Last administered on 01/08/17 06:40 ; Start 01/08/17 at 06:45; Stop 01/08/17 at 06:46; Status DC Olanzapine (ZyPREXA ZYDIS ODT) 10 mg ONCE ONCE PO Last administered on 09:59; Start 01/08/17 at 10:00; Stop 01/08/17 at 10:05; Status DC Clonazepam (KlonoPIN) 1 mg ONCE ONCE PO Last administered on 01/08/17 09:59 ; Start 01/08/17 at 10:00; Stop 01/08/17 at 10:05; Status DC Lorazepam (Ativan) 1 mg Q6H PRN PO MODERATE TO SEVERE ANXIETY; Start 01/08/17 at 09:45; Stop 01/08/17 at 15:04; Status DC Lorazepam (Ativan Inj) 1 mg Q6H PRN IM MODERATE TO SEVERE ANXIETY; Start 01/08 at 09:45; Stop 01/08/17 at 15:04; Status DC Diphenhydramine HCl (Benadryl) 50 mg Q6H PRN PO For mild anxiety and/or EPS Last administered on 01/08/17 22:00; Start 01/08/17 at 09:45 Diphenhydramine HCl (Benadryl Inj) 50 mg Q6H PRN IM For mild anxiety and/or EPS ; Start 01/08/17 at 09:45 Acetaminophen (Tylenol) 650 mg Q4H PRN PO Pain 1-5 or Temp >101F Last administered on 01/08/17 19:41; Start 01/08/17 at 09:45 Magnesium Hydroxide (Milk Of Magnesia Liq) 30 ml DAILY PRN PO CONSTIPATION; Start 01/08/17 at 09:45 Al Hydrox/Mg Hydrox/Simethicone (Mag-Al Plus Susp Liq) 30 ml Q6H PRN PO DYSPEPSIA; Start 01/08/17 at 09:45 Clonidine (Catapres) 0.1 mg Q12HR PO Last administered on 01/11/17 09:08; Start 01/08/17 at 21:00; Status Future hold Gabapentin (Neurontin) 600 mg TID PO Last administered on 01/11/17 09:08; Start 01/08/17 at 13:00 Lisinopril (Prinivil) 10 mg Q12HR PO Last administered on 01/11/17 09:07; Start 01/08/17 at 21:00; Status Future hold Tramadol HCl (Ultram) 50 mg TID PRN PO PAIN SCALE 6 TO 10 Last administered on 01/11/17 03:31; Start 01/08/17 at 10:00 Aripiprazole (Abilify) 10 mg HS PO Last administered on 01/10/17 20:57; Start 01/08/17 at 21:00; Stop 01/11/17 at 09:03; Status DC Flumazenil (Romazicon Inj) 0.2 mg Q1M PRN IV PUSH SEE LABEL COMMENTS; Start at 15:00 Lorazepam (Ativan) 1 mg Q4H PRN PO CIWA 8 - 10 Last administered on 01/11/17 05:46; Start 01/08/17 at 15:00 Lorazepam (Ativan Inj) 1 mg Q4H PRN IV PUSH CIWA 8 - 10; Start 01/08/17 at 15: 00 Lorazepam (Ativan) 2 mg Q2H PRN PO CIWA 11-14 Last administered on 01/11/17 09:10; Start 01/08/17 at 15:00 Lorazepam (Ativan Inj) 2 mg Q2H PRN IV PUSH CIWA 11-14; Start 01/08/17 at 15: 00 Lorazepam (Ativan Inj) 2 mg Q1H PRN IV PUSH CIWA 15-20; Start 01/08/17 at 15: 00 Lorazepam (Ativan Inj) 2 mg Q15M PRN IV PUSH CIWA > 20; Start 01/08/17 at 15: 00 Nicotine (Habitrol 21 Mg Patch.24 Hr) 1 patch DAILY T-DERMAL Last administered on 01/11/17 09:11; Start 01/10/17 at 09:30 Miscellaneous Information 1 DAILY T-DERMAL ; Start 01/11/17 at 09:00 Ketorolac Tromethamine (Toradol) 10 mg Q6HR PO Last administered on 01/11/17 05:47; Start 01/10/17 at 14:30 Famotidine (Pepcid) 20 mg HS PO Last administered on 01/10/17 20:58; Start 01/10/17 at 21:00 Clonidine (Catapres) 0.1 mg NOW ONCE PO Last administered on 01/10/17 15:48 ; Start 01/10/17 at 15:45; Stop 01/10/17 at 15:46; Status DC Clonidine (Catapres) 0.1 mg NOW ONCE PO Last administered on 01/11/17 00:27 ; Start 01/11/17 at 00:30; Stop 01/11/17 at 00:31; Status DC Cholecalciferol (Vitamin D3) 2,000 units DAILY PO Last administered on 09:08; Start 01/11/17 at 09:00 Aripiprazole (Abilify) 15 mg HS PO ; Start 01/11/17 at 21:00 Padimate O (Chapstick) 1 applic UNSCH PRN TOPICAL chapped lips; Start at 10:00 A/P Problem List: (1) Schizoaffective disorder, bipolar type ICD Code: F25.0 - Schizoaffective disorder, bipolar type (2) Hypokalemia ICD Code: E87.6 - Hypokalemia (3) Hyperglycemia ICD Code: R73.9 - Hyperglycemia, unspecified (4) Osteoarthritis ICD Code: M19.90 - Unspecified osteoarthritis, unspecified site Status: Chronic (5) HTN (hypertension) ICD Code: I10 - Essential (primary) hypertension (6) Tobacco abuse ICD Code: Z72.0 - Tobacco use (7) Hepatitis C ICD Code: B19.20 - Unspecified viral hepatitis C without hepatic coma Assessment and Plan A/P (1) Schizoaffective disorder, bipolar type Plan: Management as per psychiatry. (2) Hypokalemia Plan: Replaced (3) Hyperglycemia Hemoglon A1c is 5.4, likely stress related. Diabetes ruled out. (4) Osteoarthritis on po toradol . (5) HTN (hypertension) continue lisinopril- will increase clonidine to 0.1 mg po every eight hours. monitor BP and adjust the regimen as needed. (6) Tobacco abuse Advised smoking cessation. Continue nicotine patch. (7) Hepatitis C Hepatitis profile ordered and pending. LFTs within normal range. (8); vitamin D deficiency; continue with vitamin D supplement. Problem Qualifiers (1) Osteoarthritis: Qualified Codes: M17.0 - Bilateral primary osteoarthritis of knee (2) HTN (hypertension): Qualified Codes: I10 - Essential (primary) hypertension Delmar Brown MD Jan 11, 2017 10:32
[2017-01-11] MEDS ORDERED: hydrALAZINE HCL 10 MG TAB PO PRN (11:00)
[2017-01-11 12:00] VITALS: BP 93/50
[2017-01-11] MEDS: ACETAMINOPHEN 325 MG TAB PO PRN (15:07)
[2017-01-11 18:00] VITALS: BP 142/85; PULSE 99; RESP 18; TEMP 98; O2SAT 97
[2017-01-11 20:15] VITALS: BP 144/91; PULSE 91
[2017-01-11] MEDS: FAMOTIDINE 20 MG TAB PO SCH (20:39)
[2017-01-11] MEDS ORDERED: ARIPiprazole 15 MG TAB PO SCH (21:00)
[2017-01-12 02:00] VITALS: BP 143/88; PULSE 93; RESP 16; TEMP 97.5; O2SAT 97
[2017-01-12] MEDS: traMADol HCL 50 MG TAB PO PRN ×2 (02:47→11:37)
[2017-01-12 05:41] VITALS: BP 144/86; PULSE 86
[2017-01-12] MEDS: KETOROLAC TROMETHAMINE 10 MG TAB PO SCH ×3 (05:45→17:52)
[2017-01-12] MEDS: cloNIDine HCL 0.1 MG TAB PO SCH ×3 (05:45→20:39)
[2017-01-12] MEDS: CHOLECALCIFEROL (VIT D3) 1000 UNIT TAB PO SCH (08:30)
[2017-01-12] MEDS: THIAMINE HCL 100 MG TAB PO SCH (08:30)
[2017-01-12] MEDS: GABAPENTIN 300 MG CAP PO SCH ×3 (08:31→17:50)
[2017-01-12] MEDS: FOLIC ACID 1 MG TAB PO SCH (08:31)
[2017-01-12] MEDS: LISINOPRIL 10 MG TAB PO SCH ×2 (08:32→20:39)
[2017-01-12] MEDS: NICOTINE 21 MG/24 HR PATCH T-DERMAL SCH (08:33)
[2017-01-12] MEDS: REMOVE OLD PATCH T-DERMAL SCH (09:00)
--- NOTE | 2017-01-12 11:01 | HHI.PYPN ---
Subjective Chief Complaint: psychosis Remarks Patient seen and examined with nurse. Chart reviewed. CIWA max in last 24 hours = 9. Case discussed with nurse and in treatment team. On my examination today, patient continues to articulate delusions about the government and organized crime. She says that she is receiving messages from FBI agents "though my mind" asking "Are you fine?" She is disheveled. She is med seeking for benzos and hypnotics. Denies SI or HI but seems unreliable to contract for safety. No reported side effects from medications. No physical complaints. Review of Systems ROS Limitations: Psychotic, Poor Historian Except as stated in HPI: all other systems reviewed are Neg Mental Status Examination Appearance: Disheveled Consciousness: Alert Orientation: Person, Place Motor Activity: Other (no signs of withdrawal noted. No other motor abnormalities appreciated.) Speech: Unremarkable Language: Adequate Fund of Knowledge: Adequate Attention and Concentration: Easily Distracted Memory: Impaired Mood: Other (mildly dysphoric) Affect: Blunt Thought Process & Associations: Circumstantial Thought Content: Delusional Hallucination Type: Auditory Delusion Type: Bizarre, Paranoid Suicidal Ideation: No (unreliable to contract for safety) Suicidal Plan: No Suicidal Intention: No Homicidal Ideation: No Homicidal Plan: No Homicidal Intention: No Insight: Poor Judgment: Poor Results Labs Labs reviewed. No new labs. Vitals/IOs Vital Signs Date Time Temp Pulse Resp B/P (MAP) Pulse Ox O2 Delivery O2 Flow Rate FiO2 01/12/17 05:41 86 144/86 (105) 01/12/17 02:00 97.5 16 97 01/08/17 10:55 Room Air Assessment & Plan Problem List: (1) Schizoaffective disorder, bipolar type ICD Codes: F25.0 - Schizoaffective disorder, bipolar type Assessment & Plan Titrate Abilify to 20 mg at bedtime to target ongoing psychotic symptoms. Reviewing previous records, it appears that the patient has some chronic delusions about the mafia, although when she is more stable these are apparently less prominent. I have asked the counselor to try to obtain collateral to get a better sense of how far off her baseline she really is. Continue CIWA scale with Ativan. Hospitalist input noted and appreciated. Continue to monitor on the high acuity unit. Continue other medications and care as ordered. Justification for Cont. Inpt. Med changes. Impairment in reality construction. High risk for decompensation in less restrictive environment. Discharge Planning Pending psychiatric stabilization Mcihael Coffey MD Jan 12, 2017 11:01
--- NOTE | 2017-01-12 11:20 | HHI.PR ---
Subjective Remarks in no distress. has some pain to both wrists. BP trend noted. d/w the RN. Objective Vitals Vital Signs Date Time Temp Pulse Resp B/P (MAP) Pulse Ox O2 Delivery O2 Flow Rate FiO2 01/12/17 05:41 86 144/86 (105) 01/12/17 02:00 97.5 93 16 143/88 (106) 97 01/11/17 20:15 91 144/91 (108) 01/11/17 18:00 98.0 99 18 142/85 (104) 97 01/11/17 12:00 93/50 (64) Result Diagram: 01/09/17 0623 01/09/17 0623 Imaging Last Impressions Chest X-Ray 01/07/17 0000 Signed Impressions: Service Date/Time: December 11:54 - CONCLUSION: No acute disease. Nikhil Marie Jr., MD Objective Remarks GENERAL: This is a well-nourished, well-developed patient, in no apparent distress. CARDIOVASCULAR: Regular rate and regular rhythm without murmurs, gallops, or rubs. RESPIRATORY: Clear to auscultation. Breath sounds equal bilaterally. No wheezes , rales, or rhonchi. GASTROINTESTINAL: Abdomen soft, non-tender, nondistended. Normal, active bowel sounds MUSCULOSKELETAL: Extremities without clubbing, cyanosis, or edema. NEURO: awake and alert. Medications and IVs Current Medications Lorazepam (Ativan Inj) 1 mg ONCE ONCE IV PUSH Last administered on 01/07/17 11:54; Start 01/07/17 at 11:45; Stop 01/07/17 at 11:46; Status DC Sodium Chloride 1,000 ml @ 999 mls/hr BOLUS ONCE IV Last administered on 11:54; Start 01/07/17 at 11:45; Stop 01/07/17 at 12:45; Status DC Haloperidol Lactate (Haldol Inj) 5 mg ONCE ONCE IM Last administered on 13:18; Start 01/07/17 at 13:15; Stop 01/07/17 at 13:16; Status DC Potassium Chloride (KCl) 30 meq ONCE ONCE PO Last administered on 01/07/17 13:19; Start 01/07/17 at 13:15; Stop 01/07/17 at 13:16; Status DC Lisinopril (Prinivil) 10 mg ONCE ONCE PO Last administered on 01/08/17 06:40 ; Start 01/08/17 at 06:45; Stop 01/08/17 at 06:46; Status DC Clonidine (Catapres) 0.2 mg ONCE ONCE PO Last administered on 01/08/17 06:40 ; Start 01/08/17 at 06:45; Stop 01/08/17 at 06:46; Status DC Olanzapine (ZyPREXA ZYDIS ODT) 10 mg ONCE ONCE PO Last administered on 09:59; Start 01/08/17 at 10:00; Stop 01/08/17 at 10:05; Status DC Clonazepam (KlonoPIN) 1 mg ONCE ONCE PO Last administered on 01/08/17 09:59 ; Start 01/08/17 at 10:00; Stop 01/08/17 at 10:05; Status DC Lorazepam (Ativan) 1 mg Q6H PRN PO MODERATE TO SEVERE ANXIETY; Start 01/08/17 at 09:45; Stop 01/08/17 at 15:04; Status DC Lorazepam (Ativan Inj) 1 mg Q6H PRN IM MODERATE TO SEVERE ANXIETY; Start 01/08 at 09:45; Stop 01/08/17 at 15:04; Status DC Diphenhydramine HCl (Benadryl) 50 mg Q6H PRN PO For mild anxiety and/or EPS Last administered on 01/08/17 22:00; Start 01/08/17 at 09:45 Diphenhydramine HCl (Benadryl Inj) 50 mg Q6H PRN IM For mild anxiety and/or EPS ; Start 01/08/17 at 09:45 Acetaminophen (Tylenol) 650 mg Q4H PRN PO Pain 1-5 or Temp >101F Last administered on 01/11/17 15:07; Start 01/08/17 at 09:45 Magnesium Hydroxide (Milk Of Magnesia Liq) 30 ml DAILY PRN PO CONSTIPATION; Start 01/08/17 at 09:45 Al Hydrox/Mg Hydrox/Simethicone (Mag-Al Plus Susp Liq) 30 ml Q6H PRN PO DYSPEPSIA; Start 01/08/17 at 09:45 Clonidine (Catapres) 0.1 mg Q12HR PO Last administered on 01/11/17 09:08; Start 01/08/17 at 21:00; Stop 01/11/17 at 10:33; Status DC Gabapentin (Neurontin) 600 mg TID PO Last administered on 01/12/17 08:31; Start 01/08/17 at 13:00 Lisinopril (Prinivil) 10 mg Q12HR PO Last administered on 01/12/17 08:32; Start 01/08/17 at 21:00; Status Future hold Tramadol HCl (Ultram) 50 mg TID PRN PO PAIN SCALE 6 TO 10 Last administered on 01/12/17 02:47; Start 01/08/17 at 10:00 Aripiprazole (Abilify) 10 mg HS PO Last administered on 01/10/17 20:57; Start 01/08/17 at 21:00; Stop 01/11/17 at 09:03; Status DC Flumazenil (Romazicon Inj) 0.2 mg Q1M PRN IV PUSH SEE LABEL COMMENTS; Start at 15:00 Lorazepam (Ativan) 1 mg Q4H PRN PO CIWA 8 - 10 Last administered on 01/11/17 05:46; Start 01/08/17 at 15:00 Lorazepam (Ativan Inj) 1 mg Q4H PRN IV PUSH CIWA 8 - 10; Start 01/08/17 at 15: 00 Lorazepam (Ativan) 2 mg Q2H PRN PO CIWA 11-14 Last administered on 01/11/17 15:06; Start 01/08/17 at 15:00 Lorazepam (Ativan Inj) 2 mg Q2H PRN IV PUSH CIWA 11-14; Start 01/08/17 at 15: 00 Lorazepam (Ativan Inj) 2 mg Q1H PRN IV PUSH CIWA 15-20; Start 01/08/17 at 15: 00 Lorazepam (Ativan Inj) 2 mg Q15M PRN IV PUSH CIWA > 20; Start 01/08/17 at 15: 00 Nicotine (Habitrol 21 Mg Patch.24 Hr) 1 patch DAILY T-DERMAL Last administered on 01/12/17 08:33; Start 01/10/17 at 09:30 Miscellaneous Information 1 DAILY T-DERMAL ; Start 01/11/17 at 09:00 Ketorolac Tromethamine (Toradol) 10 mg Q6HR PO Last administered on 01/12/17 05:45; Start 01/10/17 at 14:30 Famotidine (Pepcid) 20 mg HS PO Last administered on 01/11/17 20:39; Start 01/10/17 at 21:00 Clonidine (Catapres) 0.1 mg NOW ONCE PO Last administered on 01/10/17 15:48 ; Start 01/10/17 at 15:45; Stop 01/10/17 at 15:46; Status DC Clonidine (Catapres) 0.1 mg NOW ONCE PO Last administered on 01/11/17 00:27 ; Start 01/11/17 at 00:30; Stop 01/11/17 at 00:31; Status DC Cholecalciferol (Vitamin D3) 2,000 units DAILY PO Last administered on 08:30; Start 01/11/17 at 09:00 Aripiprazole (Abilify) 15 mg HS PO Last administered on 01/11/17 20:38; Start 01/11/17 at 21:00 Padimate O (Chapstick) 1 applic UNSCH PRN TOPICAL chapped lips; Start at 10:00 Clonidine (Catapres) 0.1 mg Q8HR PO Last administered on 01/12/17 05:45; Start 01/11/17 at 14:00 Hydralazine HCl (Apresoline) 10 mg Q8HR PRN PO SBP> OR = 180, DBP> OR = 100; Start 01/11/17 at 11:00 Thiamine HCl (Vitamin B1) 100 mg DAILY PO Last administered on 01/12/17 08:30 ; Start 01/12/17 at 09:00 Folic Acid (Folate) 1 mg DAILY PO Last administered on 01/12/17 08:31; Start 01/12/17 at 09:00 A/P Problem List: (1) Schizoaffective disorder, bipolar type ICD Code: F25.0 - Schizoaffective disorder, bipolar type (2) Hypokalemia ICD Code: E87.6 - Hypokalemia (3) Hyperglycemia ICD Code: R73.9 - Hyperglycemia, unspecified (4) Osteoarthritis ICD Code: M19.90 - Unspecified osteoarthritis, unspecified site Status: Chronic (5) HTN (hypertension) ICD Code: I10 - Essential (primary) hypertension (6) Tobacco abuse ICD Code: Z72.0 - Tobacco use (7) Hepatitis C ICD Code: B19.20 - Unspecified viral hepatitis C without hepatic coma Assessment and Plan A/P (1) Schizoaffective disorder, bipolar type Plan: Management as per psychiatry. (2) Hypokalemia Plan: Replaced (3) Hyperglycemia Hemoglon A1c is 5.4, likely stress related. Diabetes ruled out. (4) Osteoarthritis continue with pain control. (5) HTN (hypertension) overall better. continue lisinopril and clonidine . monitor BP and adjust the regimen as needed. (6) Tobacco abuse Advised smoking cessation. Continue nicotine patch. (7) Hepatitis C LFTs within normal range.f/u as outpatient. (8); vitamin D deficiency; continue with vitamin D supplement. Problem Qualifiers (1) Osteoarthritis: Qualified Codes: M17.0 - Bilateral primary osteoarthritis of knee (2) HTN (hypertension): Qualified Codes: I10 - Essential (primary) hypertension Delmar Brown MD Jan 12, 2017 11:20
[2017-01-12 12:45] VITALS: BP 152/86; PULSE 90; RESP 18; TEMP 98.2; O2SAT 94
--- NOTE | 2017-01-12 13:27 | PD.TTN ---
Patient Problems 1. Discharge planning 2. Medication compliance 3. Knowledge deficit 4. Lack of coping skills Progress Toward Goals Provider Present: Dr. Donny Coffey Provider Input: Pt medication regiment is being adjusted including Abilify to assist with treatment of psychosis. Nurse(s) Present: Mohsen Ortiz RN Nurse(s) Input: Pt appears delusional, paranoid, grandiose, cooperative and disorganized. Psychiatric Counselors Present: MEKA Dolan Psych Therapist Input: Pt appears psychotic, delusional, guarded, appropriate, organized and oriented. Pt continues to express delusions related to the federal government and feels that she is getting "messages" from them. She also reports experiencing anxiety. Pt appears guarded with regard to her symptoms and to be minimizing them as well. Pt presents with limited insight into condition and need for care. She is compliant with medication regiment and feels it is not helping at this point. She presents with some level of coping and emotional regulation skills as evidenced by a lack of outbursts on unit. Group Spec/RT/OT/SANTO Present: GAL Lira Group Spec/RT/OT/SANTO Input: Pt has not been attending groups. Discharge Plan Other Discharge plan will be formulated as pt continues to stabilize though she states she would like to return to her home and follow up in community with a provider. Documentation Scribe: MEKA Dolan Jonathan LMHC Jan 12, 2017 13:27
[2017-01-12 18:01] VITALS: BP 163/91; PULSE 83; RESP 18; TEMP 98; O2SAT 98
[2017-01-12] MEDS: FAMOTIDINE 20 MG TAB PO SCH (20:38)
[2017-01-13 05:30] VITALS: BP_SYST 148; BP_SYST 170; BP_DIAS 90; BP_DIAS 92; PULSE 76; RESP 17; TEMP 97.4; O2SAT 97
[2017-01-13] MEDS: cloNIDine HCL 0.1 MG TAB PO SCH ×3 (06:00→21:33)
[2017-01-13] MEDS: KETOROLAC TROMETHAMINE 10 MG TAB PO SCH ×4 (06:00→18:26)
[2017-01-13] MEDS: NICOTINE 21 MG/24 HR PATCH T-DERMAL SCH (08:17)
[2017-01-13] MEDS: LORazepam 2 MG TAB PO PRN (08:18)
[2017-01-13] MEDS: GABAPENTIN 300 MG CAP PO SCH ×3 (08:18→18:26)
[2017-01-13] MEDS: CHOLECALCIFEROL (VIT D3) 1000 UNIT TAB PO SCH (08:18)
[2017-01-13] MEDS: LISINOPRIL 10 MG TAB PO SCH ×2 (08:18→20:55)
[2017-01-13] MEDS: FOLIC ACID 1 MG TAB PO SCH (08:18)
[2017-01-13] MEDS: THIAMINE HCL 100 MG TAB PO SCH (08:18)
[2017-01-13] MEDS: REMOVE OLD PATCH T-DERMAL SCH (08:34)
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
--- NOTE | 2017-01-13 11:36 | HHI.PR ---
Subjective Remarks in no acute distress. complaining of pain to the back. BP trend noted and still not optimally controlled. d/w the RN. Objective Vitals Vital Signs Date Time Temp Pulse Resp B/P (MAP) Pulse Ox O2 Delivery O2 Flow Rate FiO2 01/13/17 05:30 97.4 76 17 170/90 (116) 97 148/92 (110) 01/12/17 18:01 98.0 83 18 163/91 (115) 98 01/12/17 12:45 98.2 90 18 152/86 (108) 94 Result Diagram: 01/09/17 0623 01/09/17 0623 Imaging Last Impressions Chest X-Ray 01/07/17 0000 Signed Impressions: Service Date/Time: December 11:54 - CONCLUSION: No acute disease. Nikhil Marie Jr., MD Objective Remarks GENERAL: This is a well-nourished, well-developed patient, in no apparent distress. CARDIOVASCULAR: Regular rate and regular rhythm without murmurs, gallops, or rubs. RESPIRATORY: Clear to auscultation. Breath sounds equal bilaterally. No wheezes , rales, or rhonchi. GASTROINTESTINAL: Abdomen soft, non-tender, nondistended. Normal, active bowel sounds MUSCULOSKELETAL: Extremities without clubbing, cyanosis, or edema. NEURO: awake and alert. Medications and IVs Current Medications Lorazepam (Ativan Inj) 1 mg ONCE ONCE IV PUSH Last administered on 01/07/17 11:54; Start 01/07/17 at 11:45; Stop 01/07/17 at 11:46; Status DC Sodium Chloride 1,000 ml @ 999 mls/hr BOLUS ONCE IV Last administered on 11:54; Start 01/07/17 at 11:45; Stop 01/07/17 at 12:45; Status DC Haloperidol Lactate (Haldol Inj) 5 mg ONCE ONCE IM Last administered on 13:18; Start 01/07/17 at 13:15; Stop 01/07/17 at 13:16; Status DC Potassium Chloride (KCl) 30 meq ONCE ONCE PO Last administered on 01/07/17 13:19; Start 01/07/17 at 13:15; Stop 01/07/17 at 13:16; Status DC Lisinopril (Prinivil) 10 mg ONCE ONCE PO Last administered on 01/08/17 06:40 ; Start 01/08/17 at 06:45; Stop 01/08/17 at 06:46; Status DC Clonidine (Catapres) 0.2 mg ONCE ONCE PO Last administered on 01/08/17 06:40 ; Start 01/08/17 at 06:45; Stop 01/08/17 at 06:46; Status DC Olanzapine (ZyPREXA ZYDIS ODT) 10 mg ONCE ONCE PO Last administered on 09:59; Start 01/08/17 at 10:00; Stop 01/08/17 at 10:05; Status DC Clonazepam (KlonoPIN) 1 mg ONCE ONCE PO Last administered on 01/08/17 09:59 ; Start 01/08/17 at 10:00; Stop 01/08/17 at 10:05; Status DC Lorazepam (Ativan) 1 mg Q6H PRN PO MODERATE TO SEVERE ANXIETY; Start 01/08/17 at 09:45; Stop 01/08/17 at 15:04; Status DC Lorazepam (Ativan Inj) 1 mg Q6H PRN IM MODERATE TO SEVERE ANXIETY; Start 01/08 at 09:45; Stop 01/08/17 at 15:04; Status DC Diphenhydramine HCl (Benadryl) 50 mg Q6H PRN PO For mild anxiety and/or EPS Last administered on 01/08/17 22:00; Start 01/08/17 at 09:45 Diphenhydramine HCl (Benadryl Inj) 50 mg Q6H PRN IM For mild anxiety and/or EPS ; Start 01/08/17 at 09:45 Acetaminophen (Tylenol) 650 mg Q4H PRN PO Pain 1-5 or Temp >101F Last administered on 01/11/17 15:07; Start 01/08/17 at 09:45 Magnesium Hydroxide (Milk Of Magnesia Liq) 30 ml DAILY PRN PO CONSTIPATION; Start 01/08/17 at 09:45 Al Hydrox/Mg Hydrox/Simethicone (Mag-Al Plus Susp Liq) 30 ml Q6H PRN PO DYSPEPSIA; Start 01/08/17 at 09:45 Clonidine (Catapres) 0.1 mg Q12HR PO Last administered on 01/11/17 09:08; Start 01/08/17 at 21:00; Stop 01/11/17 at 10:33; Status DC Gabapentin (Neurontin) 600 mg TID PO Last administered on 01/13/17 08:18; Start 01/08/17 at 13:00 Lisinopril (Prinivil) 10 mg Q12HR PO Last administered on 01/13/17 08:18; Start 01/08/17 at 21:00; Status Future hold Tramadol HCl (Ultram) 50 mg TID PRN PO PAIN SCALE 6 TO 10 Last administered on 01/12/17 11:37; Start 01/08/17 at 10:00 Aripiprazole (Abilify) 10 mg HS PO Last administered on 01/10/17 20:57; Start 01/08/17 at 21:00; Stop 01/11/17 at 09:03; Status DC Flumazenil (Romazicon Inj) 0.2 mg Q1M PRN IV PUSH SEE LABEL COMMENTS; Start at 15:00 Lorazepam (Ativan) 1 mg Q4H PRN PO CIWA 8 - 10 Last administered on 01/11/17 05:46; Start 01/08/17 at 15:00 Lorazepam (Ativan Inj) 1 mg Q4H PRN IV PUSH CIWA 8 - 10; Start 01/08/17 at 15: 00 Lorazepam (Ativan) 2 mg Q2H PRN PO CIWA 11-14 Last administered on 01/13/17 08:18; Start 01/08/17 at 15:00 Lorazepam (Ativan Inj) 2 mg Q2H PRN IV PUSH CIWA 11-14; Start 01/08/17 at 15: 00 Lorazepam (Ativan Inj) 2 mg Q1H PRN IV PUSH CIWA 15-20; Start 01/08/17 at 15: 00 Lorazepam (Ativan Inj) 2 mg Q15M PRN IV PUSH CIWA > 20; Start 01/08/17 at 15: 00 Nicotine (Habitrol 21 Mg Patch.24 Hr) 1 patch DAILY T-DERMAL Last administered on 01/13/17 08:17; Start 01/10/17 at 09:30 Miscellaneous Information 1 DAILY T-DERMAL ; Start 01/11/17 at 09:00 Ketorolac Tromethamine (Toradol) 10 mg Q6HR PO Last administered on 01/13/17 06:00; Start 01/10/17 at 14:30 Famotidine (Pepcid) 20 mg HS PO Last administered on 01/12/17 20:38; Start 01/10/17 at 21:00 Clonidine (Catapres) 0.1 mg NOW ONCE PO Last administered on 01/10/17 15:48 ; Start 01/10/17 at 15:45; Stop 01/10/17 at 15:46; Status DC Clonidine (Catapres) 0.1 mg NOW ONCE PO Last administered on 01/11/17 00:27 ; Start 01/11/17 at 00:30; Stop 01/11/17 at 00:31; Status DC Cholecalciferol (Vitamin D3) 2,000 units DAILY PO Last administered on 08:18; Start 01/11/17 at 09:00 Aripiprazole (Abilify) 15 mg HS PO Last administered on 01/11/17 20:38; Start 01/11/17 at 21:00; Stop 01/12/17 at 13:50; Status DC Padimate O (Chapstick) 1 applic UNSCH PRN TOPICAL chapped lips; Start at 10:00 Clonidine (Catapres) 0.1 mg Q8HR PO Last administered on 01/13/17 06:00; Start 01/11/17 at 14:00 Hydralazine HCl (Apresoline) 10 mg Q8HR PRN PO SBP> OR = 180, DBP> OR = 100; Start 01/11/17 at 11:00 Thiamine HCl (Vitamin B1) 100 mg DAILY PO Last administered on 01/13/17 08:18 ; Start 01/12/17 at 09:00 Folic Acid (Folate) 1 mg DAILY PO Last administered on 01/13/17 08:18; Start 01/12/17 at 09:00 Aripiprazole (Abilify) 20 mg HS PO Last administered on 01/12/17 20:38; Start 01/12/17 at 21:00 A/P Problem List: (1) Schizoaffective disorder, bipolar type ICD Code: F25.0 - Schizoaffective disorder, bipolar type (2) Hypokalemia ICD Code: E87.6 - Hypokalemia (3) Hyperglycemia ICD Code: R73.9 - Hyperglycemia, unspecified (4) Osteoarthritis ICD Code: M19.90 - Unspecified osteoarthritis, unspecified site Status: Chronic (5) HTN (hypertension) ICD Code: I10 - Essential (primary) hypertension (6) Tobacco abuse ICD Code: Z72.0 - Tobacco use (7) Hepatitis C ICD Code: B19.20 - Unspecified viral hepatitis C without hepatic coma Assessment and Plan A/P (1) Schizoaffective disorder, bipolar type Plan: Management as per psychiatry. (2) Hypokalemia Plan: Replaced (3) Hyperglycemia Hemoglon A1c is 5.4, likely stress related. Diabetes ruled out. (4) Osteoarthritis continue with pain control. (5) HTN (hypertension) overall better but still not well controlled. continue lisinopril and clonidine . will add amlodipine. monitor BP and adjust the regimen as needed. (6) Tobacco abuse Advised smoking cessation. Continue nicotine patch. (7) Hepatitis C LFTs within normal range.f/u as outpatient. (8); vitamin D deficiency; continue with vitamin D supplement. Problem Qualifiers (1) Osteoarthritis: Qualified Codes: M17.0 - Bilateral primary osteoarthritis of knee (2) HTN (hypertension): Qualified Codes: I10 - Essential (primary) hypertension Delmar Brown MD Jan 13, 2017 11:36
[2017-01-13] MEDS: amLODIPine BESYLATE 5 MG TAB PO SCH (12:08)
[2017-01-13 14:58] VITALS: BP 130/78; PULSE 87; O2SAT 100
[2017-01-13] MEDS: ARIPiprazole 30 MG TAB PO SCH (20:55)
[2017-01-13] MEDS: FAMOTIDINE 20 MG TAB PO SCH (20:55)
[2017-01-14] MEDS: KETOROLAC TROMETHAMINE 10 MG TAB PO SCH ×5 (00:09→23:27)
[2017-01-14] MEDS: LORazepam 0.5 MG TAB PO PRN ×4 (00:44→20:57)
[2017-01-14] MEDS: diphenhydrAMINE HCL 50 MG CAP PO PRN ×2 (05:06→20:20)
[2017-01-14] MEDS: cloNIDine HCL 0.1 MG TAB PO SCH ×3 (05:07→20:57)
[2017-01-14 05:42] VITALS: BP 168/85; PULSE 97; RESP 18; TEMP 97.9; O2SAT 97
[2017-01-14] MEDS ORDERED: OLANZapine IM 10 MG VIAL IM ONE (07:30)
[2017-01-14] MEDS: GABAPENTIN 300 MG CAP PO SCH ×3 (08:15→17:24)
[2017-01-14] MEDS: FOLIC ACID 1 MG TAB PO SCH (08:15)
[2017-01-14] MEDS: amLODIPine BESYLATE 5 MG TAB PO SCH (08:16)
[2017-01-14] MEDS: LISINOPRIL 10 MG TAB PO SCH ×2 (08:16→20:20)
[2017-01-14] MEDS: THIAMINE HCL 100 MG TAB PO SCH (08:16)
[2017-01-14] MEDS: CHOLECALCIFEROL (VIT D3) 1000 UNIT TAB PO SCH (08:17)
[2017-01-14] MEDS: NICOTINE 21 MG/24 HR PATCH T-DERMAL SCH (08:20)
[2017-01-14] MEDS: REMOVE OLD PATCH T-DERMAL SCH (08:20)
--- NOTE | 2017-01-14 10:28 | HHI.PR ---
Subjective Remarks in no distress. at times aggressive. BP trend noted. d/w the RN and no acute issues over night. Objective Vitals Vital Signs Date Time Temp Pulse Resp B/P (MAP) Pulse Ox O2 Delivery O2 Flow Rate FiO2 01/14/17 05:42 97.9 97 18 168/85 (112) 97 Manual Cuff/Auscultation 01/13/17 14:58 87 130/78 (95) 100 Imaging Last Impressions Chest X-Ray 01/07/17 0000 Signed Impressions: Service Date/Time: December 11:54 - CONCLUSION: No acute disease. Nikhil Marie Jr., MD Objective Remarks GENERAL: This is a well-nourished, well-developed patient, in no apparent distress. CARDIOVASCULAR: Regular rate and regular rhythm without murmurs, gallops, or rubs. RESPIRATORY: Clear to auscultation. Breath sounds equal bilaterally. No wheezes , rales, or rhonchi. GASTROINTESTINAL: Abdomen soft, non-tender, nondistended. Normal, active bowel sounds MUSCULOSKELETAL: Extremities without clubbing, cyanosis, or edema. NEURO: awake and alert. Medications and IVs Current Medications Lorazepam (Ativan Inj) 1 mg ONCE ONCE IV PUSH Last administered on 01/07/17 11:54; Start 01/07/17 at 11:45; Stop 01/07/17 at 11:46; Status DC Sodium Chloride 1,000 ml @ 999 mls/hr BOLUS ONCE IV Last administered on 11:54; Start 01/07/17 at 11:45; Stop 01/07/17 at 12:45; Status DC Haloperidol Lactate (Haldol Inj) 5 mg ONCE ONCE IM Last administered on 13:18; Start 01/07/17 at 13:15; Stop 01/07/17 at 13:16; Status DC Potassium Chloride (KCl) 30 meq ONCE ONCE PO Last administered on 01/07/17 13:19; Start 01/07/17 at 13:15; Stop 01/07/17 at 13:16; Status DC Lisinopril (Prinivil) 10 mg ONCE ONCE PO Last administered on 01/08/17 06:40 ; Start 01/08/17 at 06:45; Stop 01/08/17 at 06:46; Status DC Clonidine (Catapres) 0.2 mg ONCE ONCE PO Last administered on 01/08/17 06:40 ; Start 01/08/17 at 06:45; Stop 01/08/17 at 06:46; Status DC Olanzapine (ZyPREXA ZYDIS ODT) 10 mg ONCE ONCE PO Last administered on 09:59; Start 01/08/17 at 10:00; Stop 01/08/17 at 10:05; Status DC Clonazepam (KlonoPIN) 1 mg ONCE ONCE PO Last administered on 01/08/17 09:59 ; Start 01/08/17 at 10:00; Stop 01/08/17 at 10:05; Status DC Lorazepam (Ativan) 1 mg Q6H PRN PO MODERATE TO SEVERE ANXIETY; Start 01/08/17 at 09:45; Stop 01/08/17 at 15:04; Status DC Lorazepam (Ativan Inj) 1 mg Q6H PRN IM MODERATE TO SEVERE ANXIETY; Start 01/08 at 09:45; Stop 01/08/17 at 15:04; Status DC Diphenhydramine HCl (Benadryl) 50 mg Q6H PRN PO For mild anxiety and/or EPS Last administered on 01/14/17 05:06; Start 01/08/17 at 09:45 Diphenhydramine HCl (Benadryl Inj) 50 mg Q6H PRN IM For mild anxiety and/or EPS ; Start 01/08/17 at 09:45 Acetaminophen (Tylenol) 650 mg Q4H PRN PO Pain 1-5 or Temp >101F Last administered on 01/11/17 15:07; Start 01/08/17 at 09:45 Magnesium Hydroxide (Milk Of Magnesia Liq) 30 ml DAILY PRN PO CONSTIPATION; Start 01/08/17 at 09:45 Al Hydrox/Mg Hydrox/Simethicone (Mag-Al Plus Susp Liq) 30 ml Q6H PRN PO DYSPEPSIA; Start 01/08/17 at 09:45 Clonidine (Catapres) 0.1 mg Q12HR PO Last administered on 01/11/17 09:08; Start 01/08/17 at 21:00; Stop 01/11/17 at 10:33; Status DC Gabapentin (Neurontin) 600 mg TID PO Last administered on 01/14/17 08:15; Start 01/08/17 at 13:00 Lisinopril (Prinivil) 10 mg Q12HR PO Last administered on 01/14/17 08:16; Start 01/08/17 at 21:00; Status Future hold Tramadol HCl (Ultram) 50 mg TID PRN PO PAIN SCALE 6 TO 10 Last administered on 01/12/17 11:37; Start 01/08/17 at 10:00 Aripiprazole (Abilify) 10 mg HS PO Last administered on 01/10/17 20:57; Start 01/08/17 at 21:00; Stop 01/11/17 at 09:03; Status DC Flumazenil (Romazicon Inj) 0.2 mg Q1M PRN IV PUSH SEE LABEL COMMENTS; Start at 15:00; Stop 01/13/17 at 14:03; Status DC Lorazepam (Ativan) 1 mg Q4H PRN PO CIWA 8 - 10 Last administered on 01/11/17 05:46; Start 01/08/17 at 15:00; Stop 01/13/17 at 14:03; Status DC Lorazepam (Ativan Inj) 1 mg Q4H PRN IV PUSH CIWA 8 - 10; Start 01/08/17 at 15: 00; Stop 01/13/17 at 14:03; Status DC Lorazepam (Ativan) 2 mg Q2H PRN PO CIWA 11-14 Last administered on 01/13/17 08:18; Start 01/08/17 at 15:00; Stop 01/13/17 at 14:03; Status DC Lorazepam (Ativan Inj) 2 mg Q2H PRN IV PUSH CIWA 11-14; Start 01/08/17 at 15: 00; Stop 01/13/17 at 14:03; Status DC Lorazepam (Ativan Inj) 2 mg Q1H PRN IV PUSH CIWA 15-20; Start 01/08/17 at 15: 00; Stop 01/13/17 at 14:03; Status DC Lorazepam (Ativan Inj) 2 mg Q15M PRN IV PUSH CIWA > 20; Start 01/08/17 at 15: 00; Stop 01/13/17 at 14:03; Status DC Nicotine (Habitrol 21 Mg Patch.24 Hr) 1 patch DAILY T-DERMAL Last administered on 01/13/17 08:17; Start 01/10/17 at 09:30 Miscellaneous Information 1 DAILY T-DERMAL Last administered on 01/14/17 08: 20; Start 01/11/17 at 09:00 Ketorolac Tromethamine (Toradol) 10 mg Q6HR PO Last administered on 01/14/17 05:07; Start 01/10/17 at 14:30 Famotidine (Pepcid) 20 mg HS PO Last administered on 01/13/17 20:55; Start 01/10/17 at 21:00 Clonidine (Catapres) 0.1 mg NOW ONCE PO Last administered on 01/10/17 15:48 ; Start 01/10/17 at 15:45; Stop 01/10/17 at 15:46; Status DC Clonidine (Catapres) 0.1 mg NOW ONCE PO Last administered on 01/11/17 00:27 ; Start 01/11/17 at 00:30; Stop 01/11/17 at 00:31; Status DC Cholecalciferol (Vitamin D3) 2,000 units DAILY PO Last administered on 08:17; Start 01/11/17 at 09:00 Aripiprazole (Abilify) 15 mg HS PO Last administered on 01/11/17 20:38; Start 01/11/17 at 21:00; Stop 01/12/17 at 13:50; Status DC Padimate O (Chapstick) 1 applic UNSCH PRN TOPICAL chapped lips; Start at 10:00 Clonidine (Catapres) 0.1 mg Q8HR PO Last administered on 01/14/17 05:07; Start 01/11/17 at 14:00 Hydralazine HCl (Apresoline) 10 mg Q8HR PRN PO SBP> OR = 180, DBP> OR = 100; Start 01/11/17 at 11:00 Thiamine HCl (Vitamin B1) 100 mg DAILY PO Last administered on 01/14/17 08:16 ; Start 01/12/17 at 09:00 Folic Acid (Folate) 1 mg DAILY PO Last administered on 01/14/17 08:15; Start 01/12/17 at 09:00 Aripiprazole (Abilify) 20 mg HS PO Last administered on 01/12/17 20:38; Start 01/12/17 at 21:00; Stop 01/13/17 at 13:52; Status DC Amlodipine Besylate (Norvasc) 5 mg DAILY PO Last administered on 01/14/17 08: 16; Start 01/13/17 at 11:45 Aripiprazole (Abilify) 30 mg HS PO Last administered on 01/13/17 20:55; Start 01/13/17 at 21:00 Lorazepam (Ativan) 0.5 mg Q6HR PRN PO ANXIETY Last administered on 01/14/17 08:17; Start 01/13/17 at 18:00 Olanzapine (ZyPREXA INJ) 10 mg ONCE ONCE IM Last administered on 01/14/17 07 :30; Start 01/14/17 at 07:30; Stop 01/14/17 at 07:33; Status DC A/P Problem List: (1) Schizoaffective disorder, bipolar type ICD Code: F25.0 - Schizoaffective disorder, bipolar type (2) Hypokalemia ICD Code: E87.6 - Hypokalemia (3) Hyperglycemia ICD Code: R73.9 - Hyperglycemia, unspecified (4) Osteoarthritis ICD Code: M19.90 - Unspecified osteoarthritis, unspecified site Status: Chronic (5) HTN (hypertension) ICD Code: I10 - Essential (primary) hypertension (6) Tobacco abuse ICD Code: Z72.0 - Tobacco use (7) Hepatitis C ICD Code: B19.20 - Unspecified viral hepatitis C without hepatic coma Assessment and Plan A/P (1) Schizoaffective disorder, bipolar type Plan: Management as per psychiatry. (2) Hypokalemia Plan: Replaced (3) Hyperglycemia Hemoglon A1c is 5.4, likely stress related. Diabetes ruled out. (4) Osteoarthritis continue with pain control. (5) HTN (hypertension) overall better but still not well controlled. continue lisinopril and clonidine . added amlodipine. will increase amlodipine if the BP remains elevated. monitor BP and adjust the regimen as needed. (6) Tobacco abuse Advised smoking cessation. Continue nicotine patch. (7) Hepatitis C LFTs within normal range.f/u as outpatient. (8); vitamin D deficiency; continue with vitamin D supplement. Problem Qualifiers (1) Osteoarthritis: Qualified Codes: M17.0 - Bilateral primary osteoarthritis of knee (2) HTN (hypertension): Qualified Codes: I10 - Essential (primary) hypertension Delmar Brown MD Jan 14, 2017 10:28
--- NOTE | 2017-01-14 11:14 | HHI.PYPN ---
Subjective Chief Complaint: psychosis Remarks The patient was seen today for psychiatric reevaluation. Documentation of Dr. Thakkar was carefully reviewed. Case discussed with nurse in charge. She has been presenting elevated refractory blood pressure which was discussed with consulted hospitalist and medications was reviewed. 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 She was eating her breakfast and he stays that "I do note that this breakfast is poisoned, the gambinos poisoned". He she became very agitated, loud and threw her breakfast in the floor. She had to be manually restrained and medicated with olanzapine 10 mg IM to help her to calm down. Review of Systems Psychiatric: COMPLAINS OF: Delusions Except as stated in HPI: all other systems reviewed are Neg Mental Status Examination Appearance: Disheveled Consciousness: Alert Orientation: Person, Place Motor Activity: Other (no signs of withdrawal. No motor abnormalities noted.) Speech: Unremarkable Language: Adequate Fund of Knowledge: Adequate Attention and Concentration: Easily Distracted Memory: Impaired Mood: Other (remains mildly dysphoric) Affect: Blunt Thought Process & Associations: Loose associations, Disorganized Thought Content: Racing thoughts, Delusional Hallucination Type: Other (Appears internally preoccupied) Delusion Type: Bizarre, Paranoid Suicidal Ideation: No (No SI voiced) Homicidal Ideation: No (No HI voiced) Insight: Poor Judgment: Poor Results Vitals/IOs Vital Signs Date Time Temp Pulse Resp B/P (MAP) Pulse Ox O2 Delivery O2 Flow Rate FiO2 01/14/17 05:42 97.9 97 18 168/85 (112) 97 Manual Cuff/Auscultation Assessment & Plan Problem List: (1) Schizoaffective disorder, bipolar type ICD Codes: F25.0 - Schizoaffective disorder, bipolar type Assessment & Plan: Patient remains acutely psychotic, agitated, aggressive in the unit. Had to be given olanzapine 10 mg IM calm her down. Since Abilify was increased yesterday to 30 mg, today we'll continue same medication regimen. However, patient may benefit of an additional antipsychotic or a mood stabilizer. I ordered an EKG for QTC interval baseline. Hospitalist recommendations reviewed, medication for blood pressure has been adjusted. Assessment & Plan Estimated LOS: days Justification for Cont. Inpt. The patient is acutely psychotic, very paranoid, disorganized, agitated and at times aggressive, she needs to continue inpatient level of care for safety and stabilization. Request HC Surrog/Guard Advoc?: Yes (daughter named HCS by manager mail) Jake Blevins MD Jan 14, 2017 11:14
[2017-01-14 17:17] VITALS: BP 118/71; PULSE 98; RESP 18; TEMP 98.5; O2SAT 99
[2017-01-14] MEDS: FAMOTIDINE 20 MG TAB PO SCH (20:20)
[2017-01-14] MEDS: ARIPiprazole 30 MG TAB PO SCH (20:20)
[2017-01-15] MEDS: LORazepam 0.5 MG TAB PO PRN (02:58)
[2017-01-15] MEDS: KETOROLAC TROMETHAMINE 10 MG TAB PO SCH ×4 (06:24→23:30)
[2017-01-15] MEDS: cloNIDine HCL 0.1 MG TAB PO SCH ×3 (06:24→20:10)
[2017-01-15 06:28] VITALS: BP 163/89; PULSE 74; RESP 18; TEMP 98.1; O2SAT 98
[2017-01-15] MEDS ORDERED: HALOPERIDOL LACTATE 5 MG/ML AMP ONE (08:54)
[2017-01-15] MEDS ORDERED: LORazepam 2 MG/ML VIAL ONE (08:55)
[2017-01-15] MEDS: REMOVE OLD PATCH T-DERMAL SCH (09:00)
[2017-01-15] MEDS: LISINOPRIL 10 MG TAB PO SCH ×2 (09:13→20:08)
[2017-01-15] MEDS: CHOLECALCIFEROL (VIT D3) 1000 UNIT TAB PO SCH (09:13)
[2017-01-15] MEDS: NICOTINE 21 MG/24 HR PATCH T-DERMAL SCH (09:13)
[2017-01-15] MEDS: FOLIC ACID 1 MG TAB PO SCH (09:13)
[2017-01-15] MEDS: THIAMINE HCL 100 MG TAB PO SCH (09:13)
[2017-01-15] MEDS: amLODIPine BESYLATE 5 MG TAB PO SCH (09:13)
[2017-01-15] MEDS: GABAPENTIN 300 MG CAP PO SCH ×3 (09:13→17:31)
[2017-01-15] MEDS ORDERED: diphenhydrAMINE HCL 50 MG/ML VIAL IM ONE (09:15)
[2017-01-15] MEDS ORDERED: LORazepam 2 MG/ML VIAL IM ONE (09:15)
[2017-01-15] MEDS ORDERED: HALOPERIDOL LACTATE 5 MG/ML AMP IM ONE (09:15)
--- NOTE | 2017-01-15 10:21 | HHI.PR ---
Subjective Remarks in no acute distress. at times anxious. complaining of some back pain although looks fairly comfortable. BP trend noted. d/w the RN and no acute issues over night. Objective Vitals Vital Signs Date Time Temp Pulse Resp B/P (MAP) Pulse Ox O2 Delivery O2 Flow Rate FiO2 01/15/17 06:28 98.1 74 18 163/89 (113) 98 01/14/17 17:17 98.5 98 18 118/71 (87) 99 Imaging Last Impressions Chest X-Ray 01/07/17 0000 Signed Impressions: Service Date/Time: December 11:54 - CONCLUSION: No acute disease. Nikhil Marie Jr., MD Objective Remarks GENERAL: This is a well-nourished, well-developed patient, in no apparent distress. CARDIOVASCULAR: Regular rate and regular rhythm without murmurs, gallops, or rubs. RESPIRATORY: Clear to auscultation. Breath sounds equal bilaterally. No wheezes , rales, or rhonchi. GASTROINTESTINAL: Abdomen soft, non-tender, nondistended. Normal, active bowel sounds MUSCULOSKELETAL: Extremities without clubbing, cyanosis, or edema. NEURO: awake and alert. Medications and IVs Current Medications Lorazepam (Ativan Inj) 1 mg ONCE ONCE IV PUSH Last administered on 01/07/17 11:54; Start 01/07/17 at 11:45; Stop 01/07/17 at 11:46; Status DC Sodium Chloride 1,000 ml @ 999 mls/hr BOLUS ONCE IV Last administered on 11:54; Start 01/07/17 at 11:45; Stop 01/07/17 at 12:45; Status DC Haloperidol Lactate (Haldol Inj) 5 mg ONCE ONCE IM Last administered on 13:18; Start 01/07/17 at 13:15; Stop 01/07/17 at 13:16; Status DC Potassium Chloride (KCl) 30 meq ONCE ONCE PO Last administered on 01/07/17 13:19; Start 01/07/17 at 13:15; Stop 01/07/17 at 13:16; Status DC Lisinopril (Prinivil) 10 mg ONCE ONCE PO Last administered on 01/08/17 06:40 ; Start 01/08/17 at 06:45; Stop 01/08/17 at 06:46; Status DC Clonidine (Catapres) 0.2 mg ONCE ONCE PO Last administered on 01/08/17 06:40 ; Start 01/08/17 at 06:45; Stop 01/08/17 at 06:46; Status DC Olanzapine (ZyPREXA ZYDIS ODT) 10 mg ONCE ONCE PO Last administered on 09:59; Start 01/08/17 at 10:00; Stop 01/08/17 at 10:05; Status DC Clonazepam (KlonoPIN) 1 mg ONCE ONCE PO Last administered on 01/08/17 09:59 ; Start 01/08/17 at 10:00; Stop 01/08/17 at 10:05; Status DC Lorazepam (Ativan) 1 mg Q6H PRN PO MODERATE TO SEVERE ANXIETY; Start 01/08/17 at 09:45; Stop 01/08/17 at 15:04; Status DC Lorazepam (Ativan Inj) 1 mg Q6H PRN IM MODERATE TO SEVERE ANXIETY; Start 01/08 at 09:45; Stop 01/08/17 at 15:04; Status DC Diphenhydramine HCl (Benadryl) 50 mg Q6H PRN PO For mild anxiety and/or EPS Last administered on 01/14/17 20:20; Start 01/08/17 at 09:45 Diphenhydramine HCl (Benadryl Inj) 50 mg Q6H PRN IM For mild anxiety and/or EPS Last administered on 01/15/17 03:28; Start 01/08/17 at 09:45 Acetaminophen (Tylenol) 650 mg Q4H PRN PO Pain 1-5 or Temp >101F Last administered on 01/11/17 15:07; Start 01/08/17 at 09:45 Magnesium Hydroxide (Milk Of Magnesia Liq) 30 ml DAILY PRN PO CONSTIPATION; Start 01/08/17 at 09:45 Al Hydrox/Mg Hydrox/Simethicone (Mag-Al Plus Susp Liq) 30 ml Q6H PRN PO DYSPEPSIA; Start 01/08/17 at 09:45 Clonidine (Catapres) 0.1 mg Q12HR PO Last administered on 01/11/17 09:08; Start 01/08/17 at 21:00; Stop 01/11/17 at 10:33; Status DC Gabapentin (Neurontin) 600 mg TID PO Last administered on 01/15/17 09:13; Start 01/08/17 at 13:00 Lisinopril (Prinivil) 10 mg Q12HR PO Last administered on 01/15/17 09:13; Start 01/08/17 at 21:00; Status Future hold Tramadol HCl (Ultram) 50 mg TID PRN PO PAIN SCALE 6 TO 10 Last administered on 01/12/17 11:37; Start 01/08/17 at 10:00 Aripiprazole (Abilify) 10 mg HS PO Last administered on 01/10/17 20:57; Start 01/08/17 at 21:00; Stop 01/11/17 at 09:03; Status DC Flumazenil (Romazicon Inj) 0.2 mg Q1M PRN IV PUSH SEE LABEL COMMENTS; Start at 15:00; Stop 01/13/17 at 14:03; Status DC Lorazepam (Ativan) 1 mg Q4H PRN PO CIWA 8 - 10 Last administered on 01/11/17 05:46; Start 01/08/17 at 15:00; Stop 01/13/17 at 14:03; Status DC Lorazepam (Ativan Inj) 1 mg Q4H PRN IV PUSH CIWA 8 - 10; Start 01/08/17 at 15: 00; Stop 01/13/17 at 14:03; Status DC Lorazepam (Ativan) 2 mg Q2H PRN PO CIWA 11-14 Last administered on 01/13/17 08:18; Start 01/08/17 at 15:00; Stop 01/13/17 at 14:03; Status DC Lorazepam (Ativan Inj) 2 mg Q2H PRN IV PUSH CIWA 11-14; Start 01/08/17 at 15: 00; Stop 01/13/17 at 14:03; Status DC Lorazepam (Ativan Inj) 2 mg Q1H PRN IV PUSH CIWA 15-20; Start 01/08/17 at 15: 00; Stop 01/13/17 at 14:03; Status DC Lorazepam (Ativan Inj) 2 mg Q15M PRN IV PUSH CIWA > 20; Start 01/08/17 at 15: 00; Stop 01/13/17 at 14:03; Status DC Nicotine (Habitrol 21 Mg Patch.24 Hr) 1 patch DAILY T-DERMAL Last administered on 01/15/17 09:13; Start 01/10/17 at 09:30 Miscellaneous Information 1 DAILY T-DERMAL Last administered on 01/15/17 09: 00; Start 01/11/17 at 09:00 Ketorolac Tromethamine (Toradol) 10 mg Q6HR PO Last administered on 01/15/17 06:24; Start 01/10/17 at 14:30 Famotidine (Pepcid) 20 mg HS PO Last administered on 01/14/17 20:20; Start 01/10/17 at 21:00 Clonidine (Catapres) 0.1 mg NOW ONCE PO Last administered on 01/10/17 15:48 ; Start 01/10/17 at 15:45; Stop 01/10/17 at 15:46; Status DC Clonidine (Catapres) 0.1 mg NOW ONCE PO Last administered on 01/11/17 00:27 ; Start 01/11/17 at 00:30; Stop 01/11/17 at 00:31; Status DC Cholecalciferol (Vitamin D3) 2,000 units DAILY PO Last administered on 09:13; Start 01/11/17 at 09:00 Aripiprazole (Abilify) 15 mg HS PO Last administered on 01/11/17 20:38; Start 01/11/17 at 21:00; Stop 01/12/17 at 13:50; Status DC Padimate O (Chapstick) 1 applic UNSCH PRN TOPICAL chapped lips; Start at 10:00 Clonidine (Catapres) 0.1 mg Q8HR PO Last administered on 01/15/17 06:24; Start 01/11/17 at 14:00 Hydralazine HCl (Apresoline) 10 mg Q8HR PRN PO SBP> OR = 180, DBP> OR = 100; Start 01/11/17 at 11:00 Thiamine HCl (Vitamin B1) 100 mg DAILY PO Last administered on 01/15/17 09:13 ; Start 01/12/17 at 09:00 Folic Acid (Folate) 1 mg DAILY PO Last administered on 01/15/17 09:13; Start 01/12/17 at 09:00 Aripiprazole (Abilify) 20 mg HS PO Last administered on 01/12/17 20:38; Start 01/12/17 at 21:00; Stop 01/13/17 at 13:52; Status DC Amlodipine Besylate (Norvasc) 5 mg DAILY PO Last administered on 01/15/17 09: 13; Start 01/13/17 at 11:45 Aripiprazole (Abilify) 30 mg HS PO Last administered on 01/14/17 20:20; Start 01/13/17 at 21:00 Lorazepam (Ativan) 0.5 mg Q6HR PRN PO ANXIETY Last administered on 01/15/17 02:58; Start 01/13/17 at 18:00 Olanzapine (ZyPREXA INJ) 10 mg ONCE ONCE IM Last administered on 01/14/17 07 :30; Start 01/14/17 at 07:30; Stop 01/14/17 at 07:33; Status DC Haloperidol Lactate (Haldol Inj) 5 mg STK-MED ONCE .ROUTE ; Start 01/15/17 at 08:54; Stop 01/15/17 at 08:55; Status DC Lorazepam (Ativan Inj) 2 mg STK-MED ONCE .ROUTE ; Start 01/15/17 at 08:55; Stop 01/15/17 at 08:56; Status DC Haloperidol Lactate (Haldol Inj) 5 mg STAT ONCE IM Last administered on 09:59; Start 01/15/17 at 09:15; Stop 01/15/17 at 09:16; Status DC Lorazepam (Ativan Inj) 1 mg STAT ONCE IM Last administered on 01/15/17 09:59 ; Start 01/15/17 at 09:15; Stop 01/15/17 at 09:16; Status DC Diphenhydramine HCl (Benadryl Inj) 50 mg STAT ONCE IM Last administered on 09:15; Start 01/15/17 at 09:15; Stop 01/15/17 at 09:16; Status DC A/P Problem List: (1) Schizoaffective disorder, bipolar type ICD Code: F25.0 - Schizoaffective disorder, bipolar type (2) Hypokalemia ICD Code: E87.6 - Hypokalemia (3) Hyperglycemia ICD Code: R73.9 - Hyperglycemia, unspecified (4) Osteoarthritis ICD Code: M19.90 - Unspecified osteoarthritis, unspecified site Status: Chronic (5) HTN (hypertension) ICD Code: I10 - Essential (primary) hypertension (6) Tobacco abuse ICD Code: Z72.0 - Tobacco use (7) Hepatitis C ICD Code: B19.20 - Unspecified viral hepatitis C without hepatic coma Assessment and Plan A/P (1) Schizoaffective disorder, bipolar type Plan: Management as per psychiatry. (2) Hypokalemia Plan: Replaced (3) Hyperglycemia Hemoglon A1c is 5.4, likely stress related. Diabetes ruled out. (4) Osteoarthritis continue with pain control. (5) HTN (hypertension) overall better . although BP at times elevated. continue lisinopril and clonidine . added amlodipine. will increase amlodipine if the BP remains elevated. monitor BP and adjust the regimen as needed. (6) Tobacco abuse Advised smoking cessation. Continue nicotine patch. (7) Hepatitis C LFTs within normal range.f/u as outpatient. (8); vitamin D deficiency; continue with vitamin D supplement. Problem Qualifiers (1) Osteoarthritis: Qualified Codes: M17.0 - Bilateral primary osteoarthritis of knee (2) HTN (hypertension): Qualified Codes: I10 - Essential (primary) hypertension Delmar Brown MD Jan 15, 2017 10:21
--- NOTE | 2017-01-15 10:33 | PD.TTN ---
Patient Problems 1. Discharge planning 2. Medication compliance 3. Knowledge deficit 4. Lack of coping skills Progress Toward Goals Provider Present: Dr. Donny Coffey Provider Input: Pt medication regiment is being adjusted including Abilify to assist with treatment of psychosis. 01/15 is still in need for further stabilization and daughter shared she is improving Nurse(s) Present: Mohsen Ortiz, RN Nurse(s) Input: Pt appears delusional, paranoid, grandiose, cooperative and disorganized. 01/15 Annabel needed an ETO today, again, nonsensical, refused meds before the ETO and then agreed to take them Psychiatric Counselors Present: MEKA Dolan Verena Coes, LCSW Psych Therapist Input: Pt appears psychotic, delusional, guarded, appropriate, organized and oriented. Pt continues to express delusions related to the federal government and feels that she is getting "messages" from them. She also reports experiencing anxiety. Pt appears guarded with regard to her symptoms and to be minimizing them as well. Pt presents with limited insight into condition and need for care. She is compliant with medication regiment and feels it is not helping at this point. She presents with some level of coping and emotional regulation skills as evidenced by a lack of outbursts on unit. 01/15 patient is still meeting criteria being delusional and non compliant, upon discharge she can return with outpatient follow up Group Spec/RT/OT/SANTO Present: GAL Lira Group Spec/RT/OT/SANTO Input: Pt has not been attending groups. Discharge Plan Other Discharge plan will be formulated as pt continues to stabilize though she states she would like to return to her home and follow up in community with a provider. Documentation Scribe: MEKA Dolan Verena LCSW Jan 15, 2017 10:33
[2017-01-15] MEDS: traMADol HCL 50 MG TAB PO PRN (12:54)
--- NOTE | 2017-01-15 13:16 | HHI.PYPN ---
Subjective Chief Complaint: psychosis Remarks Patient seen and examined with nurse. Chart reviewed. Case discussed with nursing and in treatment team. Prior to my evaluation of the patient this morning, I was called from the floor because patient was agitated and psychotic and unredirectable per nursing staff. I ordered patient medicated with Haldol, Ativan and Benadryl ETO. I also note patient required ETO yesterday with Dr. Blevins. Medication non-adherence is not suspected by nursing staff. On my exam today, patient is calmer but remains extremely delusional. She continues to perseverate on her paranoid delusional material. "I am a legal Narc! That fat pig was trying to interfere." She believes that the treatment team is part of the [employer] and that "you're trying to kill me quicker." Affect remains quite dysphoric. She reports hearing the voice of Morgan Chance, who also worked for the [employer], threatening to kill her. Denies side effects from medications. No physical complaints. We discussed possible pharmacotherapeutic measures going forward. Patient says she doesn't want to go back on a typical antipsychotic. She does not want a medication that requires blood draws. She reports that she has been on Risperdal in the past and is open to this agent. Review of Systems ROS Limitations: Psychotic, Poor Historian Except as stated in HPI: all other systems reviewed are Neg Mental Status Examination Appearance: Disheveled Consciousness: Alert, Vigilant Orientation: Person, Place Motor Activity: Other (no abnormal motor movements noted) Speech: Unremarkable Language: Adequate Fund of Knowledge: Adequate Attention and Concentration: Easily Distracted Memory: Impaired Mood: Angry, Irritable Affect: Other (consistent with mood) Thought Process & Associations: Other (perseverative on delusional themes) Thought Content: Bizarre thinking, Delusional Hallucination Type: Auditory Delusion Type: Bizarre, Paranoid Suicidal Ideation: No (unreliable to contract for safety) Homicidal Ideation: No Insight: Poor Judgment: Poor Results Labs Labs reviewed. No new labs. Dr. Blevins ordered EKG but patient refused this. Vitals/IOs Vital Signs Date Time Temp Pulse Resp B/P (MAP) Pulse Ox O2 Delivery O2 Flow Rate FiO2 01/15/17 06:28 98.1 74 18 163/89 (113) 98 Assessment & Plan Problem List: (1) Schizoaffective disorder, bipolar type ICD Codes: F25.0 - Schizoaffective disorder, bipolar type Assessment & Plan Patient remains floridly psychotic on maximal dose of Abilify. Patient does not want to go back on a typical and her refusal of blood draws makes clozapine difficult. I will order Risperdal M tabs 0.5 mg twice daily to augment her Abilify. Please consider titrating the Risperdal over the weekend if appropriate to target her psychotic symptoms. I will reorder the EKG to see if she will comply today given ongoing high antipsychotic requirement. Continue to monitor on the high acuity unit. Continue other medications and care as ordered. Justification for Cont. Inpt. Impairment in reality construction. Med changes. High risk for decompensation in less restrictive environment. Discharge Planning Pending psychiatric stabilization Request HC Surrog/Guard Advoc?: Yes Michael Coffey MD Jan 15, 2017 13:16
[2017-01-15 16:45] VITALS: BP 113/75; PULSE 78; RESP 18; TEMP 97.9; O2SAT 99
[2017-01-15 16:48] VITALS: BP 113/75; PULSE 78; RESP 18; TEMP 97.9; O2SAT 99
[2017-01-15] MEDS: FAMOTIDINE 20 MG TAB PO SCH (20:08)
[2017-01-15] MEDS: ARIPiprazole 30 MG TAB PO SCH (20:08)
[2017-01-15] MEDS: diphenhydrAMINE HCL 50 MG CAP PO PRN (20:08)
[2017-01-16] MEDS: LORazepam 0.5 MG TAB PO PRN ×3 (02:50→21:25)
[2017-01-16] MEDS: KETOROLAC TROMETHAMINE 10 MG TAB PO SCH (05:14)
[2017-01-16] MEDS: cloNIDine HCL 0.1 MG TAB PO SCH ×3 (05:14→22:00)
[2017-01-16 05:46] VITALS: BP 147/83; PULSE 87; RESP 18; TEMP 98; O2SAT 97
[2017-01-16] MEDS: REMOVE OLD PATCH T-DERMAL SCH (09:00)
[2017-01-16] MEDS: NICOTINE 21 MG/24 HR PATCH T-DERMAL SCH (09:00)
[2017-01-16] MEDS: GABAPENTIN 300 MG CAP PO SCH ×3 (09:12→17:30)
[2017-01-16] MEDS: THIAMINE HCL 100 MG TAB PO SCH (09:12)
[2017-01-16] MEDS: CHOLECALCIFEROL (VIT D3) 1000 UNIT TAB PO SCH (09:13)
[2017-01-16] MEDS: amLODIPine BESYLATE 5 MG TAB PO SCH (09:13)
[2017-01-16] MEDS: FOLIC ACID 1 MG TAB PO SCH (09:13)
[2017-01-16] MEDS: LISINOPRIL 10 MG TAB PO SCH ×3 (09:13→20:20)
--- NOTE | 2017-01-16 09:37 | HHI.PR ---
Subjective Remarks in no acute distress. complaining of some back pain- although was sleeping comfortably at the time of my evaluation. d/w the RN and no acute issues over night. Objective Vitals Vital Signs Date Time Temp Pulse Resp B/P (MAP) Pulse Ox O2 Delivery O2 Flow Rate FiO2 01/16/17 05:46 98.0 87 18 147/83 (104) 97 01/15/17 16:48 97.9 78 18 113/75 (88) 99 01/15/17 16:45 97.9 78 18 113/75 (88) 99 Imaging Last Impressions Chest X-Ray 01/07/17 0000 Signed Impressions: Service Date/Time: December 11:54 - CONCLUSION: No acute disease. Nikhil Marie Jr., MD Objective Remarks GENERAL: This is a well-nourished, well-developed patient, in no apparent distress. CARDIOVASCULAR: Regular rate and regular rhythm without murmurs, gallops, or rubs. RESPIRATORY: Clear to auscultation. Breath sounds equal bilaterally. No wheezes , rales, or rhonchi. GASTROINTESTINAL: Abdomen soft, non-tender, nondistended. Normal, active bowel sounds MUSCULOSKELETAL: Extremities without clubbing, cyanosis, or edema. NEURO: awake and alert. Medications and IVs Current Medications Lorazepam (Ativan Inj) 1 mg ONCE ONCE IV PUSH Last administered on 01/07/17 11:54; Start 01/07/17 at 11:45; Stop 01/07/17 at 11:46; Status DC Sodium Chloride 1,000 ml @ 999 mls/hr BOLUS ONCE IV Last administered on 11:54; Start 01/07/17 at 11:45; Stop 01/07/17 at 12:45; Status DC Haloperidol Lactate (Haldol Inj) 5 mg ONCE ONCE IM Last administered on 13:18; Start 01/07/17 at 13:15; Stop 01/07/17 at 13:16; Status DC Potassium Chloride (KCl) 30 meq ONCE ONCE PO Last administered on 01/07/17 13:19; Start 01/07/17 at 13:15; Stop 01/07/17 at 13:16; Status DC Lisinopril (Prinivil) 10 mg ONCE ONCE PO Last administered on 01/08/17 06:40 ; Start 01/08/17 at 06:45; Stop 01/08/17 at 06:46; Status DC Clonidine (Catapres) 0.2 mg ONCE ONCE PO Last administered on 01/08/17 06:40 ; Start 01/08/17 at 06:45; Stop 01/08/17 at 06:46; Status DC Olanzapine (ZyPREXA ZYDIS ODT) 10 mg ONCE ONCE PO Last administered on 09:59; Start 01/08/17 at 10:00; Stop 01/08/17 at 10:05; Status DC Clonazepam (KlonoPIN) 1 mg ONCE ONCE PO Last administered on 01/08/17 09:59 ; Start 01/08/17 at 10:00; Stop 01/08/17 at 10:05; Status DC Lorazepam (Ativan) 1 mg Q6H PRN PO MODERATE TO SEVERE ANXIETY; Start 01/08/17 at 09:45; Stop 01/08/17 at 15:04; Status DC Lorazepam (Ativan Inj) 1 mg Q6H PRN IM MODERATE TO SEVERE ANXIETY; Start 01/08 at 09:45; Stop 01/08/17 at 15:04; Status DC Diphenhydramine HCl (Benadryl) 50 mg Q6H PRN PO For mild anxiety and/or EPS Last administered on 01/14/17 20:20; Start 01/08/17 at 09:45 Diphenhydramine HCl (Benadryl Inj) 50 mg Q6H PRN IM For mild anxiety and/or EPS Last administered on 01/15/17 03:28; Start 01/08/17 at 09:45 Acetaminophen (Tylenol) 650 mg Q4H PRN PO Pain 1-5 or Temp >101F Last administered on 01/11/17 15:07; Start 01/08/17 at 09:45 Magnesium Hydroxide (Milk Of Magnesia Liq) 30 ml DAILY PRN PO CONSTIPATION; Start 01/08/17 at 09:45 Al Hydrox/Mg Hydrox/Simethicone (Mag-Al Plus Susp Liq) 30 ml Q6H PRN PO DYSPEPSIA; Start 01/08/17 at 09:45 Clonidine (Catapres) 0.1 mg Q12HR PO Last administered on 01/11/17 09:08; Start 01/08/17 at 21:00; Stop 01/11/17 at 10:33; Status DC Gabapentin (Neurontin) 600 mg TID PO Last administered on 01/16/17 09:12; Start 01/08/17 at 13:00 Lisinopril (Prinivil) 10 mg Q12HR PO Last administered on 01/16/17 09:13; Start 01/08/17 at 21:00; Status Future hold Tramadol HCl (Ultram) 50 mg TID PRN PO PAIN SCALE 6 TO 10 Last administered on 01/15/17 12:54; Start 01/08/17 at 10:00 Aripiprazole (Abilify) 10 mg HS PO Last administered on 01/10/17 20:57; Start 01/08/17 at 21:00; Stop 01/11/17 at 09:03; Status DC Flumazenil (Romazicon Inj) 0.2 mg Q1M PRN IV PUSH SEE LABEL COMMENTS; Start at 15:00; Stop 01/13/17 at 14:03; Status DC Lorazepam (Ativan) 1 mg Q4H PRN PO CIWA 8 - 10 Last administered on 01/11/17 05:46; Start 01/08/17 at 15:00; Stop 01/13/17 at 14:03; Status DC Lorazepam (Ativan Inj) 1 mg Q4H PRN IV PUSH CIWA 8 - 10; Start 01/08/17 at 15: 00; Stop 01/13/17 at 14:03; Status DC Lorazepam (Ativan) 2 mg Q2H PRN PO CIWA 11-14 Last administered on 01/13/17 08:18; Start 01/08/17 at 15:00; Stop 01/13/17 at 14:03; Status DC Lorazepam (Ativan Inj) 2 mg Q2H PRN IV PUSH CIWA 11-14; Start 01/08/17 at 15: 00; Stop 01/13/17 at 14:03; Status DC Lorazepam (Ativan Inj) 2 mg Q1H PRN IV PUSH CIWA 15-20; Start 01/08/17 at 15: 00; Stop 01/13/17 at 14:03; Status DC Lorazepam (Ativan Inj) 2 mg Q15M PRN IV PUSH CIWA > 20; Start 01/08/17 at 15: 00; Stop 01/13/17 at 14:03; Status DC Nicotine (Habitrol 21 Mg Patch.24 Hr) 1 patch DAILY T-DERMAL Last administered on 01/15/17 09:13; Start 01/10/17 at 09:30 Miscellaneous Information 1 DAILY T-DERMAL Last administered on 01/15/17 09: 00; Start 01/11/17 at 09:00 Ketorolac Tromethamine (Toradol) 10 mg Q6HR PO Last administered on 01/16/17 05:14; Start 01/10/17 at 14:30; Stop 01/16/17 at 07:44; Status DC Famotidine (Pepcid) 20 mg HS PO Last administered on 01/15/17 20:08; Start 01/10/17 at 21:00 Clonidine (Catapres) 0.1 mg NOW ONCE PO Last administered on 01/10/17 15:48 ; Start 01/10/17 at 15:45; Stop 01/10/17 at 15:46; Status DC Clonidine (Catapres) 0.1 mg NOW ONCE PO Last administered on 01/11/17 00:27 ; Start 01/11/17 at 00:30; Stop 01/11/17 at 00:31; Status DC Cholecalciferol (Vitamin D3) 2,000 units DAILY PO Last administered on 09:13; Start 01/11/17 at 09:00 Aripiprazole (Abilify) 15 mg HS PO Last administered on 01/11/17 20:38; Start 01/11/17 at 21:00; Stop 01/12/17 at 13:50; Status DC Padimate O (Chapstick) 1 applic UNSCH PRN TOPICAL chapped lips; Start at 10:00 Clonidine (Catapres) 0.1 mg Q8HR PO Last administered on 01/16/17 05:14; Start 01/11/17 at 14:00 Hydralazine HCl (Apresoline) 10 mg Q8HR PRN PO SBP> OR = 180, DBP> OR = 100; Start 01/11/17 at 11:00 Thiamine HCl (Vitamin B1) 100 mg DAILY PO Last administered on 01/16/17 09:12 ; Start 01/12/17 at 09:00 Folic Acid (Folate) 1 mg DAILY PO Last administered on 01/16/17 09:13; Start 01/12/17 at 09:00 Aripiprazole (Abilify) 20 mg HS PO Last administered on 01/12/17 20:38; Start 01/12/17 at 21:00; Stop 01/13/17 at 13:52; Status DC Amlodipine Besylate (Norvasc) 5 mg DAILY PO Last administered on 01/16/17 09: 13; Start 01/13/17 at 11:45 Aripiprazole (Abilify) 30 mg HS PO Last administered on 01/15/17 20:08; Start 01/13/17 at 21:00 Lorazepam (Ativan) 0.5 mg Q6HR PRN PO ANXIETY Last administered on 01/16/17 02:50; Start 01/13/17 at 18:00 Olanzapine (ZyPREXA INJ) 10 mg ONCE ONCE IM Last administered on 01/14/17 07 :30; Start 01/14/17 at 07:30; Stop 01/14/17 at 07:33; Status DC Haloperidol Lactate (Haldol Inj) 5 mg STK-MED ONCE .ROUTE ; Start 01/15/17 at 08:54; Stop 01/15/17 at 08:55; Status DC Lorazepam (Ativan Inj) 2 mg STK-MED ONCE .ROUTE ; Start 01/15/17 at 08:55; Stop 01/15/17 at 08:56; Status DC Haloperidol Lactate (Haldol Inj) 5 mg STAT ONCE IM Last administered on 09:59; Start 01/15/17 at 09:15; Stop 01/15/17 at 09:16; Status DC Lorazepam (Ativan Inj) 1 mg STAT ONCE IM Last administered on 01/15/17 09:59 ; Start 01/15/17 at 09:15; Stop 01/15/17 at 09:16; Status DC Diphenhydramine HCl (Benadryl Inj) 50 mg STAT ONCE IM Last administered on 09:15; Start 01/15/17 at 09:15; Stop 01/15/17 at 09:16; Status DC Risperidone (risperDAL M-TAB) 0.5 mg Q12HR PO Last administered on 01/16/17t 09:00; Start 01/15/17 at 21:00 A/P Problem List: (1) Schizoaffective disorder, bipolar type ICD Code: F25.0 - Schizoaffective disorder, bipolar type (2) Hypokalemia ICD Code: E87.6 - Hypokalemia (3) Hyperglycemia ICD Code: R73.9 - Hyperglycemia, unspecified (4) Osteoarthritis ICD Code: M19.90 - Unspecified osteoarthritis, unspecified site Status: Chronic (5) HTN (hypertension) ICD Code: I10 - Essential (primary) hypertension (6) Tobacco abuse ICD Code: Z72.0 - Tobacco use (7) Hepatitis C ICD Code: B19.20 - Unspecified viral hepatitis C without hepatic coma Assessment and Plan A/P (1) Schizoaffective disorder, bipolar type Plan: Management as per psychiatry. (2) Hypokalemia Plan: Replaced (3) Hyperglycemia Hemoglobin A1c is 5.4, likely stress related. Diabetes ruled out. (4) Osteoarthritis continue with pain control. (5) HTN (hypertension) overall better . although BP at times elevated. continue lisinopril and clonidine . added amlodipine. monitor BP and adjust the regimen as needed. (6) Tobacco abuse Advised smoking cessation. Continue nicotine patch. (7) Hepatitis C LFTs within normal range.f/u as outpatient. (8); vitamin D deficiency; continue with vitamin D supplement. Problem Qualifiers (1) Osteoarthritis: Qualified Codes: M17.0 - Bilateral primary osteoarthritis of knee (2) HTN (hypertension): Qualified Codes: I10 - Essential (primary) hypertension Delmar Brown MD Jan 16, 2017 09:37
[2017-01-16] MEDS: traMADol HCL 50 MG TAB PO PRN (10:14)
--- NOTE | 2017-01-16 14:49 | HHI.PYPN ---
Subjective Chief Complaint: psychosis Remarks Patient was seen and case discussed with nursing. Patient remains acutely psychotic. She believes that she wasn't and former and the [employer] and that her mother was also informer. Per nursing she was agitated this morning. Largely seclusive to self. Flat affect. Tolerating medications well Mental Status Examination Appearance: Disheveled Consciousness: Alert, Vigilant Orientation: Person, Place Motor Activity: Other (no abnormal motor movements noted) Speech: Unremarkable Language: Adequate Fund of Knowledge: Adequate Attention and Concentration: Easily Distracted Memory: Impaired Mood: Angry, Irritable Affect: Other (consistent with mood) Thought Process & Associations: Other (perseverative on delusional themes) Thought Content: Bizarre thinking, Preoccupations, Delusional Hallucination Type: Auditory Delusion Type: Bizarre, Paranoid Suicidal Ideation: No (unreliable to contract for safety) Suicidal Plan: No Suicidal Intention: No Homicidal Ideation: No Homicidal Plan: No Homicidal Intention: No Insight: Poor Judgment: Poor Results Vitals/IOs Vital Signs Date Time Temp Pulse Resp B/P (MAP) Pulse Ox O2 Delivery O2 Flow Rate FiO2 01/16/17 05:46 98.0 87 18 147/83 (104) 97 Assessment & Plan Problem List: (1) Schizoaffective disorder, bipolar type ICD Codes: F25.0 - Schizoaffective disorder, bipolar type Assessment & Plan Continue current treatment plan Justification for Cont. Inpt. Patient will decompensate in a less restrictive setting Request HC Surrog/Guard Advoc?: Yes Urbano Anders DO Jan 16, 2017 14:49
[2017-01-16] MEDS ORDERED: ZOLP10TA3 PO (15:57)
[2017-01-16] MEDS: ACETAMINOPHEN/HYDROcodone 325 MG/5 MG TAB PO PRN (17:31)
--- NOTE | 2017-01-16 17:50 | EKG ---
Date Performed: 01/15/2017 Time Performed: 13:36:11 PTAGE: 56 years EKG: Sinus rhythm LEFT ANTERIOR FASCICULAR BLOCK ABNORMAL ECG PREVIOUS TRACING : 01/09/2017 09.55 Compared to prior tracing no significant change DOCTOR: Yaron Arauz Interpretating Date/Time 01/16/2017 17:49:40
[2017-01-16 18:38] VITALS: BP 102/58; PULSE 71; RESP 18; TEMP 98.4; O2SAT 97
[2017-01-16] MEDS: PADIMATE (CHAPSTICK) 4.5 GM TUBE TOPICAL PRN ×2 (20:16→21:28)
[2017-01-16] MEDS: FAMOTIDINE 20 MG TAB PO SCH (20:17)
[2017-01-16] MEDS: ARIPiprazole 30 MG TAB PO SCH (20:17)
[2017-01-17] MEDS: ACETAMINOPHEN/HYDROcodone 325 MG/5 MG TAB PO PRN ×4 (00:48→20:27)
[2017-01-17] MEDS: LORazepam 0.5 MG TAB PO PRN ×3 (04:13→17:54)
[2017-01-17 05:53] VITALS: BP 132/77; PULSE 72; RESP 16; TEMP 97.9; O2SAT 96
[2017-01-17] MEDS: cloNIDine HCL 0.1 MG TAB PO SCH ×3 (06:32→22:02)
[2017-01-17] MEDS: CHOLECALCIFEROL (VIT D3) 1000 UNIT TAB PO SCH (08:49)
[2017-01-17] MEDS: THIAMINE HCL 100 MG TAB PO SCH (08:49)
[2017-01-17] MEDS: GABAPENTIN 300 MG CAP PO SCH ×3 (08:49→17:54)
[2017-01-17] MEDS: FOLIC ACID 1 MG TAB PO SCH (08:49)
[2017-01-17] MEDS: amLODIPine BESYLATE 5 MG TAB PO SCH (08:49)
[2017-01-17] MEDS: LISINOPRIL 10 MG TAB PO SCH ×2 (08:50→20:22)
[2017-01-17] MEDS: NICOTINE 21 MG/24 HR PATCH T-DERMAL SCH (08:52)
[2017-01-17] MEDS: REMOVE OLD PATCH T-DERMAL SCH (08:52)
--- NOTE | 2017-01-17 10:12 | HHI.PR ---
Subjective Remarks in no distress. pain is better. says that had some thought racing earlier. d/w the RN. Objective Vitals Vital Signs Date Time Temp Pulse Resp B/P (MAP) Pulse Ox O2 Delivery O2 Flow Rate FiO2 01/17/17 05:53 97.9 72 16 132/77 (95) 96 01/16/17 18:38 98.4 71 18 102/58 (73) 97 Imaging Last Impressions Chest X-Ray 01/07/17 0000 Signed Impressions: Service Date/Time: December 11:54 - CONCLUSION: No acute disease. Nikhil Marie Jr., MD Objective Remarks GENERAL: This is a well-nourished, well-developed patient, in no apparent distress. CARDIOVASCULAR: Regular rate and regular rhythm without murmurs, gallops, or rubs. RESPIRATORY: Clear to auscultation. Breath sounds equal bilaterally. No wheezes , rales, or rhonchi. GASTROINTESTINAL: Abdomen soft, non-tender, nondistended. Normal, active bowel sounds MUSCULOSKELETAL: Extremities without clubbing, cyanosis, or edema. NEURO: awake and alert. Medications and IVs Current Medications Lorazepam (Ativan Inj) 1 mg ONCE ONCE IV PUSH Last administered on 01/07/17 11:54; Start 01/07/17 at 11:45; Stop 01/07/17 at 11:46; Status DC Sodium Chloride 1,000 ml @ 999 mls/hr BOLUS ONCE IV Last administered on 11:54; Start 01/07/17 at 11:45; Stop 01/07/17 at 12:45; Status DC Haloperidol Lactate (Haldol Inj) 5 mg ONCE ONCE IM Last administered on 13:18; Start 01/07/17 at 13:15; Stop 01/07/17 at 13:16; Status DC Potassium Chloride (KCl) 30 meq ONCE ONCE PO Last administered on 01/07/17 13:19; Start 01/07/17 at 13:15; Stop 01/07/17 at 13:16; Status DC Lisinopril (Prinivil) 10 mg ONCE ONCE PO Last administered on 01/08/17 06:40 ; Start 01/08/17 at 06:45; Stop 01/08/17 at 06:46; Status DC Clonidine (Catapres) 0.2 mg ONCE ONCE PO Last administered on 01/08/17 06:40 ; Start 01/08/17 at 06:45; Stop 01/08/17 at 06:46; Status DC Olanzapine (ZyPREXA ZYDIS ODT) 10 mg ONCE ONCE PO Last administered on 09:59; Start 01/08/17 at 10:00; Stop 01/08/17 at 10:05; Status DC Clonazepam (KlonoPIN) 1 mg ONCE ONCE PO Last administered on 01/08/17 09:59 ; Start 01/08/17 at 10:00; Stop 01/08/17 at 10:05; Status DC Lorazepam (Ativan) 1 mg Q6H PRN PO MODERATE TO SEVERE ANXIETY; Start 01/08/17 at 09:45; Stop 01/08/17 at 15:04; Status DC Lorazepam (Ativan Inj) 1 mg Q6H PRN IM MODERATE TO SEVERE ANXIETY; Start 01/08 at 09:45; Stop 01/08/17 at 15:04; Status DC Diphenhydramine HCl (Benadryl) 50 mg Q6H PRN PO For mild anxiety and/or EPS Last administered on 01/14/17 20:20; Start 01/08/17 at 09:45 Diphenhydramine HCl (Benadryl Inj) 50 mg Q6H PRN IM For mild anxiety and/or EPS Last administered on 01/15/17 03:28; Start 01/08/17 at 09:45 Acetaminophen (Tylenol) 650 mg Q4H PRN PO Pain 1-5 or Temp >101F Last administered on 01/11/17 15:07; Start 01/08/17 at 09:45 Magnesium Hydroxide (Milk Of Magnesia Liq) 30 ml DAILY PRN PO CONSTIPATION; Start 01/08/17 at 09:45 Al Hydrox/Mg Hydrox/Simethicone (Mag-Al Plus Susp Liq) 30 ml Q6H PRN PO DYSPEPSIA; Start 01/08/17 at 09:45 Clonidine (Catapres) 0.1 mg Q12HR PO Last administered on 01/11/17 09:08; Start 01/08/17 at 21:00; Stop 01/11/17 at 10:33; Status DC Gabapentin (Neurontin) 600 mg TID PO Last administered on 01/17/17 08:49; Start 01/08/17 at 13:00 Lisinopril (Prinivil) 10 mg Q12HR PO Last administered on 01/17/17 08:50; Start 01/08/17 at 21:00; Status Future hold Tramadol HCl (Ultram) 50 mg TID PRN PO PAIN SCALE 6 TO 10 Last administered on 01/16/17 10:14; Start 01/08/17 at 10:00; Stop 01/16/17 at 17:10; Status DC Aripiprazole (Abilify) 10 mg HS PO Last administered on 01/10/17 20:57; Start 01/08/17 at 21:00; Stop 01/11/17 at 09:03; Status DC Flumazenil (Romazicon Inj) 0.2 mg Q1M PRN IV PUSH SEE LABEL COMMENTS; Start at 15:00; Stop 01/13/17 at 14:03; Status DC Lorazepam (Ativan) 1 mg Q4H PRN PO CIWA 8 - 10 Last administered on 01/11/17 05:46; Start 01/08/17 at 15:00; Stop 01/13/17 at 14:03; Status DC Lorazepam (Ativan Inj) 1 mg Q4H PRN IV PUSH CIWA 8 - 10; Start 01/08/17 at 15: 00; Stop 01/13/17 at 14:03; Status DC Lorazepam (Ativan) 2 mg Q2H PRN PO CIWA 11-14 Last administered on 01/13/17 08:18; Start 01/08/17 at 15:00; Stop 01/13/17 at 14:03; Status DC Lorazepam (Ativan Inj) 2 mg Q2H PRN IV PUSH CIWA 11-14; Start 01/08/17 at 15: 00; Stop 01/13/17 at 14:03; Status DC Lorazepam (Ativan Inj) 2 mg Q1H PRN IV PUSH CIWA 15-20; Start 01/08/17 at 15: 00; Stop 01/13/17 at 14:03; Status DC Lorazepam (Ativan Inj) 2 mg Q15M PRN IV PUSH CIWA > 20; Start 01/08/17 at 15: 00; Stop 01/13/17 at 14:03; Status DC Nicotine (Habitrol 21 Mg Patch.24 Hr) 1 patch DAILY T-DERMAL Last administered on 01/15/17 09:13; Start 01/10/17 at 09:30 Miscellaneous Information 1 DAILY T-DERMAL Last administered on 01/15/17 09: 00; Start 01/11/17 at 09:00 Ketorolac Tromethamine (Toradol) 10 mg Q6HR PO Last administered on 01/16/17 05:14; Start 01/10/17 at 14:30; Stop 01/16/17 at 07:44; Status DC Famotidine (Pepcid) 20 mg HS PO Last administered on 01/16/17 20:17; Start 01/10/17 at 21:00 Clonidine (Catapres) 0.1 mg NOW ONCE PO Last administered on 01/10/17 15:48 ; Start 01/10/17 at 15:45; Stop 01/10/17 at 15:46; Status DC Clonidine (Catapres) 0.1 mg NOW ONCE PO Last administered on 01/11/17 00:27 ; Start 01/11/17 at 00:30; Stop 01/11/17 at 00:31; Status DC Cholecalciferol (Vitamin D3) 2,000 units DAILY PO Last administered on 08:49; Start 01/11/17 at 09:00 Aripiprazole (Abilify) 15 mg HS PO Last administered on 01/11/17 20:38; Start 01/11/17 at 21:00; Stop 01/12/17 at 13:50; Status DC Padimate O (Chapstick) 1 applic UNSCH PRN TOPICAL chapped lips Last administered on 01/16/17 21:28; Start 01/11/17 at 10:00 Clonidine (Catapres) 0.1 mg Q8HR PO Last administered on 01/17/17 06:32; Start 01/11/17 at 14:00 Hydralazine HCl (Apresoline) 10 mg Q8HR PRN PO SBP> OR = 180, DBP> OR = 100; Start 01/11/17 at 11:00 Thiamine HCl (Vitamin B1) 100 mg DAILY PO Last administered on 01/17/17 08:49 ; Start 01/12/17 at 09:00 Folic Acid (Folate) 1 mg DAILY PO Last administered on 01/17/17 08:49; Start 01/12/17 at 09:00 Aripiprazole (Abilify) 20 mg HS PO Last administered on 01/12/17 20:38; Start 01/12/17 at 21:00; Stop 01/13/17 at 13:52; Status DC Amlodipine Besylate (Norvasc) 5 mg DAILY PO Last administered on 01/17/17 08: 49; Start 01/13/17 at 11:45 Aripiprazole (Abilify) 30 mg HS PO Last administered on 01/16/17 20:17; Start 01/13/17 at 21:00 Lorazepam (Ativan) 0.5 mg Q6HR PRN PO ANXIETY Last administered on 01/17/17 04:13; Start 01/13/17 at 18:00 Olanzapine (ZyPREXA INJ) 10 mg ONCE ONCE IM Last administered on 01/14/17 07 :30; Start 01/14/17 at 07:30; Stop 01/14/17 at 07:33; Status DC Haloperidol Lactate (Haldol Inj) 5 mg STK-MED ONCE .ROUTE ; Start 01/15/17 at 08:54; Stop 01/15/17 at 08:55; Status DC Lorazepam (Ativan Inj) 2 mg STK-MED ONCE .ROUTE ; Start 01/15/17 at 08:55; Stop 01/15/17 at 08:56; Status DC Haloperidol Lactate (Haldol Inj) 5 mg STAT ONCE IM Last administered on 09:59; Start 01/15/17 at 09:15; Stop 01/15/17 at 09:16; Status DC Lorazepam (Ativan Inj) 1 mg STAT ONCE IM Last administered on 01/15/17 09:59 ; Start 01/15/17 at 09:15; Stop 01/15/17 at 09:16; Status DC Diphenhydramine HCl (Benadryl Inj) 50 mg STAT ONCE IM Last administered on 09:15; Start 01/15/17 at 09:15; Stop 01/15/17 at 09:16; Status DC Risperidone (risperDAL M-TAB) 0.5 mg Q12HR PO Last administered on 01/17/17 08:49; Start 01/15/17 at 21:00 Acetaminophen/ Hydrocodone Bitart ([place]wood 5-325 Mg) 1 tab Q6H PRN PO PAIN 6-10 Last administered on 01/17/17 06:32; Start 01/16/17 at 17:15 A/P Problem List: (1) Schizoaffective disorder, bipolar type ICD Code: F25.0 - Schizoaffective disorder, bipolar type (2) Hypokalemia ICD Code: E87.6 - Hypokalemia (3) Hyperglycemia ICD Code: R73.9 - Hyperglycemia, unspecified (4) Osteoarthritis ICD Code: M19.90 - Unspecified osteoarthritis, unspecified site Status: Chronic (5) HTN (hypertension) ICD Code: I10 - Essential (primary) hypertension (6) Tobacco abuse ICD Code: Z72.0 - Tobacco use (7) Hepatitis C ICD Code: B19.20 - Unspecified viral hepatitis C without hepatic coma Assessment and Plan A/P (1) Schizoaffective disorder, bipolar type Plan: Management as per psychiatry. (2) Hypokalemia Plan: Replaced (3) Hyperglycemia Hemoglobin A1c is 5.4, likely stress related. Diabetes ruled out. (4) Osteoarthritis continue with pain control. (5) HTN (hypertension) overall better . continue lisinopril , clonidine and amlodipine. (6) Tobacco abuse Advised smoking cessation. Continue nicotine patch. (7) Hepatitis C LFTs within normal range.f/u as outpatient. (8); vitamin D deficiency; continue with vitamin D supplement. [facility] will sign off and see her as needed. Problem Qualifiers (1) Osteoarthritis: Qualified Codes: M17.0 - Bilateral primary osteoarthritis of knee (2) HTN (hypertension): Qualified Codes: I10 - Essential (primary) hypertension Delmar Brown MD Jan 17, 2017 10:12
--- NOTE | 2017-01-17 12:19 | HHI.PYPN ---
Subjective Chief Complaint: psychosis Mental Status Examination Appearance: Disheveled Consciousness: Alert, Vigilant Orientation: Person, Place Motor Activity: Other (no abnormal motor movements noted) Speech: Unremarkable Language: Adequate Fund of Knowledge: Adequate Attention and Concentration: Easily Distracted Memory: Impaired Mood: Angry, Irritable Affect: Other (consistent with mood) Thought Process & Associations: Other (perseverative on delusional themes) Thought Content: Bizarre thinking, Preoccupations, Delusional Hallucination Type: Auditory Delusion Type: Bizarre, Paranoid Suicidal Ideation: No (unreliable to contract for safety) Suicidal Plan: No Suicidal Intention: No Homicidal Ideation: No Homicidal Plan: No Homicidal Intention: No Insight: Poor Judgment: Poor Results Vitals/IOs Vital Signs Date Time Temp Pulse Resp B/P (MAP) Pulse Ox O2 Delivery O2 Flow Rate FiO2 01/17/17 05:53 97.9 72 16 132/77 (95) 96 Assessment & Plan Problem List: (1) Schizoaffective disorder, bipolar type ICD Codes: F25.0 - Schizoaffective disorder, bipolar type Assessment & Plan Estimated LOS: days Request HC Surrog/Guard Advoc?: Yes Urbano Anders DO Jan 17, 2017 12:19
--- NOTE | 2017-01-17 12:22 | HHI.PYPN ---
Subjective Chief Complaint: psychosis Remarks Patient was seen and case discussed with nursing. Patient remains paranoid with bizarre thinking. Told nursing earlier "bitches pointing fingers at me, will bury me [place] the swamp." No outbursts. Affect is blunted. Tolerating her medications well. She'll complaint today is poor sleep Mental Status Examination Appearance: Disheveled Consciousness: Alert, Vigilant Orientation: Person, Place Motor Activity: Other (no abnormal motor movements noted) Speech: Unremarkable Language: Adequate Fund of Knowledge: Adequate Attention and Concentration: Easily Distracted Memory: Impaired Mood: Angry, Irritable Affect: Other (consistent with mood) Thought Process & Associations: Other (perseverative on delusional themes) Thought Content: Bizarre thinking, Preoccupations, Delusional Hallucination Type: Auditory Delusion Type: Bizarre, Paranoid Suicidal Ideation: No (unreliable to contract for safety) Suicidal Plan: No Suicidal Intention: No Homicidal Ideation: No Homicidal Plan: No Homicidal Intention: No Insight: Poor Judgment: Poor Results Vitals/IOs Vital Signs Date Time Temp Pulse Resp B/P (MAP) Pulse Ox O2 Delivery O2 Flow Rate FiO2 01/17/17 05:53 97.9 72 16 132/77 (95) 96 Assessment & Plan Problem List: (1) Schizoaffective disorder, bipolar type ICD Codes: F25.0 - Schizoaffective disorder, bipolar type Assessment & Plan And 50 mg of trazodone daily at bedtime for sleep. Consider changing Abilify dose to morning Justification for Cont. Inpt. Patient would decompensate in a less restrictive setting Request HC Surrog/Guard Advoc?: Yes Urbano Anders DO Jan 17, 2017 12:22
[2017-01-17 13:56] VITALS: BP 111/77; PULSE 86
[2017-01-17 17:21] VITALS: BP 110/64; PULSE 84; RESP 17; TEMP 97.1; O2SAT 97
[2017-01-17] MEDS: ARIPiprazole 30 MG TAB PO SCH (20:20)
[2017-01-17] MEDS: FAMOTIDINE 20 MG TAB PO SCH (20:21)
[2017-01-17] MEDS ORDERED: traZODone HCL 50 MG TAB PO SCH (21:00)
[2017-01-17 22:37] VITALS: BP 142/85; PULSE 85
[2017-01-18] MEDS: ACETAMINOPHEN/HYDROcodone 325 MG/5 MG TAB PO PRN (02:54)
[2017-01-18] MEDS: cloNIDine HCL 0.1 MG TAB PO SCH ×2 (05:47→13:25)
[2017-01-18] MEDS: LORazepam 0.5 MG TAB PO PRN ×2 (05:47→12:00)
[2017-01-18 05:58] VITALS: BP 157/83; PULSE 69; RESP 16; TEMP 97.4; O2SAT 98
[2017-01-18] MEDS: CHOLECALCIFEROL (VIT D3) 1000 UNIT TAB PO SCH (08:44)
[2017-01-18] MEDS: GABAPENTIN 300 MG CAP PO SCH ×2 (08:44→11:59)
[2017-01-18] MEDS: amLODIPine BESYLATE 5 MG TAB PO SCH (08:45)
[2017-01-18] MEDS: FOLIC ACID 1 MG TAB PO SCH (08:45)
[2017-01-18] MEDS: LISINOPRIL 10 MG TAB PO SCH (08:45)
[2017-01-18] MEDS: THIAMINE HCL 100 MG TAB PO SCH (08:45)
[2017-01-18] MEDS: NICOTINE 21 MG/24 HR PATCH T-DERMAL SCH (09:00)
[2017-01-18] MEDS: REMOVE OLD PATCH T-DERMAL SCH (09:00)
[2017-01-18] MEDS ORDERED: CHOL1000 PO (10:27)
[2017-01-18] MEDS ORDERED: AMLO5 PO (10:27)
[2017-01-18] MEDS ORDERED: LISI10TA3 PO (10:27)
[2017-01-18] MEDS ORDERED: CLON.1 PO (10:27)
[2017-01-18] MEDS ORDERED: ARIP10IN IM (10:27)
[2017-01-18] MEDS ORDERED: FAMO20TA2 PO (10:27)
[2017-01-18] MEDS ORDERED: RISP0.5T2 PO (10:27)
[2017-01-18] MEDS ORDERED: GABA600T PO (10:27)
[2017-01-18] MEDS ORDERED: ARIP1TAB15 PO (10:27)
--- NOTE | 2017-01-18 10:27 | HHI.DS ---
Psychiatry Discharge Summary Inpatient Psychiatric care?: Yes Advance Directive: No Reason Not Provided: DOES NOT HAVE Mental Health AdvanceDirective: No Health Care Proxy: No Admission Admission Date Jan 08, 2017 at 09:44 Admission Diagnosis: (1) Schizoaffective disorder, bipolar type ICD Code: F25.0 - Schizoaffective disorder, bipolar type Brief History 56-year-old female, grossly psychotic, poor historian, brought in voluntarily by her daughter but placed under a Saab act by [place] ED physician. Patient continues to demonstrate significant looseness of associations and bizarre nonsensical remarks. 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 Intermittently, she is able to provide pieces of information such as treatment in [place] and a diagnosis of schizoaffective disorder. She also recognizes psychotropic medicines and is willing to take Zyprexa and Klonopin in the emergency department, although she requests Xanax and Ambien. She had difficulty with the examination in the emergency department due to her inability to follow direction. The patient has reportedly been out of medication for weeks. At this moment, she is yelling threats at the psychiatric emergency department staff. She is obviously paranoid and claims to be persecuted by her sister. Tobacco Use In Past 30 Days: 5 or More Cigarettes/Day Alcohol Use: 4 or More Times Per Week Hospital Course Patient was admitted to a locked, inpatient psychiatric unit. A general medical consultation was obtained. Appropriate precautions were in place throughout patient's hospital stay. Patient was seen and examined on the unit by psychiatry and also visited by counselor. Psychotropic medications were adjusted. Patient tolerated medications well without side effects. Patient had improvement in presenting psychiatric symptomatology during the course of her hospital stay. There was no evidence of any suicidality or homicidality on the inpatient unit. Counselor has reached out to patient's daughter on the day of discharge, and daughter is reportedly comfortable accepting the patient home today. On the day of discharge: Patient seen and examined with nurse. Chart reviewed. Case discussed with nursing staff who reports that the patient is attending to her basic needs and has been no behavioral problem overnight. Case discussed with counselor. On my examination today, the patient is requesting discharge from the inpatient psychiatric unit. She denies any suicidal or homicidal ideation, intent or plan on direct questioning and contracts for safety. She says that she is "trying to stay positive" and I can elicit no depressive or hypomanic/manic symptoms. She denies any audiovisual hallucinations. She continues to endorse paranoid delusions about the government and organized crime when asked, but she does not volunteer any of this delusional material and seems less distressed by it. Indeed, of her delusions she tells me, "it is bothering me? No. I've accepted it." I suspect these delusions are fixed. She denies any side effects from medications. After discussion of the risks, benefits and alternatives she is agreeable to a trial of Abilify Maintena. Psychoeducation provided to patient regarding her discharge psychotropic regimen including the need for temporary supplementation of Abilify Maintena with oral Abilify. No physical complaints. Suicide and violence risk assessment on discharge both suggests lower imminent risk, and the patient's level of function is adequate for outpatient care. Patient has maximized benefit from this inpatient psychiatric hospital stay. She will be discharged today with psychiatric follow-up as arranged by counselor. Patient is also to follow-up with primary care. I have counseled patient regarding warning signs for need to return to the psychiatric emergency room as part of the general safety plan. Results Blood Pressure 157 / 83 Vital Signs Date Time Temp Pulse Resp B/P (MAP) Pulse Ox O2 Delivery O2 Flow Rate FiO2 01/18/17 05:58 97.4 69 16 157/83 (107) 98 Laboratory Results Test 01/09/17 06:23 Cholesterol Level 189 MG/DL (120-200) HDL Cholesterol 64.9 MG/DL (40.0-60.0) Hemoglobin A1c 5.4 % (4.3-6.0) LDL Cholesterol 99 MG/DL (0-99) Triglycerides Level 124 MG/DL (42-150) Summary of Procedures None done Imaging Last Impressions Chest X-Ray 01/07/17 0000 Signed Impressions: Service Date/Time: December 11:54 - CONCLUSION: No acute disease. Nikhil Marie Jr., MD Pending results at discharge: No Medications # of Antipsychotic meds at D/C: 2 Appropriate >1 Antipsych meds?: 4 Approp Antipsych med options 1 - Minimum of three failed multiple trials of monotherapy. 2 - Documented plan to taper to monotherapy due to previous use of multiple meds OR cross-taper in progress at D/C. 3 - Documentation of augmentation of Clozapine. 4 - Justification other than those listed in allowable values 1-3, document here : Required multiple antipsychotics for acute stabilization. Discharge Discharge Date: Jan 18, 2017 Discharge Diagnosis: (1) Schizoaffective disorder, bipolar type Diagnosis: Principal ICD Code: F25.0 - Schizoaffective disorder, bipolar type Pt Condition on Discharge: Stable Discharge Disposition: Discharge Home Discharge Instructions Diet Instructions: As Tolerated, No Restrictions Activities you can perform: Weight Bearing as Aki Scheduled Appointment: [facility] Appointment Date: Jan 22, 2017 Appointment Time: 7:30 am New Orders: BASIC METABOLIC PROF - 1 Week VITAMIN D,25-HYDROXY - 2 Months New Medications: Aripiprazole Maintena Dual Chamber Inj (Abilify Maintena Dual Chamber Inj) 400 Mg Inj 400 MG IM Q28D for Mental Health, #1 SYRINGE 0 Refills This dose of Abilify Maintena is due on 02/15/2017. If clinic is closed 02/15, can give as early as 02/12/2017. Risperidone (Risperidone) 0.5 Mg Tab 0.5 MG PO Q12HR for Mental Health for 15 Days, TAB 1 Refill Amlodipine (Norvasc) 5 Mg Tab 5 MG PO DAILY for Blood Pressure Management for 15 Days, #15 TAB 1 Refill Aripiprazole (Aripiprazole) 30 Mg Tab 30 MG PO HS for Mental Health for 15 Days, TAB 0 Refills Take oral Abilify for 14 days then stop. Be sure to get your next Abilify Maintena injection. Cholecalciferol (Gnp Vitamin D3 Extra Stre) 1,000 Unit Tab 2000 UNITS PO DAILY for Vitamin D supplement for 15 Days, TAB 1 Refill Clonidine (Catapres) 0.1 Mg Tab 0.1 MG PO Q8HR for Blood Pressure Management for 15 Days, TAB 1 Refill Famotidine (Famotidine) 20 Mg Tab 20 MG PO HS for Health for 15 Days, TAB 1 Refill Continued Medications: Gabapentin (Gabapentin) 600 Mg Tab 600 MG PO TID for Health for 15 Days, TAB 1 Refill (This prescription has been renewed) Hydrocodone/Acetaminophen (Hydrocodone-Acetamin 5-325 mg) 5 Mg-325 Mg Tablet 1 TAB PO Q6HR for Pain Hydroxyzine Pamoate (Vistaril) 50 Mg Cap 50 MG PO Q6HR PRN for MILD ANXIETY, CAP 0 Refills Lisinopril (Lisinopril) 10 Mg Tab 10 MG PO Q12HR for Blood Pressure Management for 15 Days, TAB 1 Refill (This prescription has been renewed) Discontinued Medications: Benztropine (Benztropine) 0.5 Mg Tab 1 MG PO BID, #60 TAB 0 Refills Clonidine (Clonidine) 0.1 Mg Tab 0.1 MG PO Q12HR for Blood Pressure Management, #60 TAB 0 Refills Tramadol (Tramadol) 50 Mg Tab 50 MG PO TID PRN for PAIN SCALE 6 TO 10, TAB 0 Refills Ziprasidone (Geodon) 80 Mg Cap 160 MG PO HS, #60 CAP 0 Refills Zolpidem (Zolpidem) 10 Mg Tab 10 MG PO HS PRN for INSOMNIA, TAB 0 Refills Discharge Time > 30 minutes Mental Status Examination Appearance: Appropriate Consciousness: Alert Orientation: Person, Place (at least) Motor Activity: Other (no hand tremor, no dystonia, no dyskinesia noted. No other motor abnormalities appreciated.) Speech: Unremarkable Language: Adequate Fund of Knowledge: Adequate Attention and Concentration: Adequate Memory: Unremarkable (fair on clinical exam.) Mood: Appropriate Affect: Blunt Thought Process & Associations: Linear Thought Content: Delusional Hallucination Type: None Delusion Type: Paranoid (fixed) Suicidal Ideation: No Suicidal Plan: No Suicidal Intention: No Homicidal Ideation: No Homicidal Plan: No Homicidal Intention: No Insight: Fair Judgment: Adequate (fair at best) Discharge/Advance Care Plan Health Problems: (1) Schizoaffective disorder, bipolar type Goals to promote your health * To prevent worsening of your condition and complications * To maintain your health at the optimal level Directions to meet your goals Take your medications as prescribed Follow your dietary instruction Follow activity as directed Keep your appointments as scheduled Take your immunizations and boosters as scheduled If your symptoms worsen call your PCP, if no PCP go to Urgent Care Center or Emergency Room For 24/ questions related to your inpatient stay or results of tests pending at discharge, please contact Dr. Michael Coffey at Smoking is Dangerous to Your Health. Avoid second hand smoking Michael Coffey MD Jan 18, 2017 10:27
[2017-01-18] MEDS ORDERED: ABILIFY MAINTENA 400 MG IM SCH (11:30)
== END 2017-01-18 13:40 | disposition home or self-care (01) | DRG 885 ==
LOC: NEPE 10:57 → NEDA 01-08 09:44 → H270 01-08 11:08
PROVIDERS: ADMIT Psychiatry & Neurology Psychiatry; ATTEND Psychiatry & Neurology Psychiatry
DX: F25.0 Schizoaffective disorder, bipolar type (principal); I10 Essential (primary) hypertension; M79.7 Fibromyalgia; M17.0 Bilateral primary osteoarthritis of knee; F43.10 Post-traumatic stress disorder, unspecified; F17.210 Nicotine dependence, cigarettes, uncomplicated; F12.90 Cannabis use, unspecified, uncomplicated; E87.6 Hypokalemia; R73.9 Hyperglycemia, unspecified; B19.20 Unspecified viral hepatitis C without hepatic coma; E55.9 Vitamin D deficiency, unspecified; Z59.0 Homelessness
CPT/HCPCS: 71010; 80053; 80061; 80074; 80307; 81001; 82306; 82607; 83036; 84443; 85025; 93005; 96361; 96372; 96374; J1200; J1630; J2060; J7030; Q0163

== ENCOUNTER 2017-06-10 14:22 | Inpatient (IN) | payer MEDICAID, OTHER ==
[~2017-06-10] VITALS: Ht 160 cm; Wt 73.4 kg
[~2017-06-10 14:22] MED LIST changes: +AMLO5 PO; +ARIP10IN IM; +ARIP1TAB15 PO; -BENZ1TAB PO; +CHOL1000 PO; -CLON-352 PO; +CLON.1 PO; +FAMO20TA2 PO; -GABA300 PO; +GABA600T PO; +HYDR-3516 PO; -LISI-360 PO; +LISI10TA3 PO; -LORTA5 PO; +RISP0.5T2 PO; -TRAM50 PO; -ZIPR40 PO
[2017-06-10 14:37] VITALS: BP 136/88; PULSE 121; RESP 20; TEMP 99; O2SAT 100
[2017-06-10] MEDS ORDERED: CYCL10TA PO (16:08)
[2017-06-10 16:17] LABS: AUTOMATED NEUTROPHIL # 5.6 TH/MM3 (1.8-7.7); BASOPHIL % 0.3 % (0.0-2.0); EOSINOPHIL # 0.1 TH/MM3 (0-0.4); EOSINOPHIL % 0.8 % (0.0-4.0); HEMATOCRIT 37.6 % (35.0-46.0); HEMOGLOBIN 13.1 GM/DL (11.6-15.3); LYMPH % 27.4 % (9.0-44.0); LYMPHOCYTE # 2.4 TH/MM3 (1.0-4.8); MEAN CELL VOLUME 87.3 FL (80.0-100.0); MEAN CORPUSCULAR HEMOGLOBIN 30.5 PG (27.0-34.0); MEAN CORPUSCULAR HGB CONC 34.9 % (32.0-36.0); MEAN PLATELET VOLUME 7.8 FL (7.0-11.0); MONO % 6.5 % (0.0-8.0); MONOCYTE # 0.6 TH/MM3 (0-0.9); PLATELET COUNT 346 TH/MM3 (150-450); RED BLOOD COUNT 4.31 MIL/MM3 (4.00-5.30); RED CELL DISTRIBUTION WIDTH 13.3 % (11.6-17.2); WHITE BLOOD COUNT 8.6 TH/MM3 (4.0-11.0)
[2017-06-10 17:03] LABS: ACETAMINOPHEN LESS THAN 2.0 MCG/ML (10.0-30.0); ALBUMIN 4.1 GM/DL (3.4-5.0); ALKALINE PHOSPHATASE 75 U/L (45-117); ALT (GPT) 25 U/L (10-53); AST (GOT) 19 U/L (15-37); BICARBONATE 23.3 MEQ/L (21.0-32.0); BLOOD UREA NITROGEN 20 MG/DL (7-18); CALCIUM 9.3 MG/DL (8.5-10.1); CHLORIDE 109 MEQ/L (98-107); GLOMERULAR FILTRATION RATE 65 ML/MIN (>89); GLUCOSE,RANDOM 96 MG/DL (74-106); SODIUM (NA) 141 MEQ/L (136-145); TOTAL BILIRUBIN ADULT 0.5 MG/DL (0.2-1.0); TOTAL PROTEIN 8.5 GM/DL (6.4-8.2)
[2017-06-10] MEDS ORDERED: LORazepam 1 MG TAB PO ONE (17:30)
--- NOTE | 2017-06-10 17:42 | PD ---
HPI Chief Complaint: Psychiatric Symptoms Time Seen by Provider: 15:41 Travel History International Travel<30 days: No Contact w/Intl Traveler<30days: No Traveled to known affect area: No History of Present Illness HPI 56-year-old female presents to the emergency department voluntarily for psychological evaluation. Apparently she was sent by Dr. Quiroz for psychosis and delusions, but the patient does not know who Dr. Quiroz days. Patient says she is in a [facility] and was dropped off by the director. She denies psychiatric history. Denies suicidal or homicidal ideations. The patient is acting bizarre, talking to people/things that are not there, not making sense when she talks sometimes, "talking to ghosts," pacing around the room, hallucinating. She says she is not hallucinating but she is "just talking to ghosts." She says she has not slept in 3 days. She denies illicit drug use. Reports occasional alcohol use. She does not see a psychiatrist. She has no primary care provider. No known allergies. History of hypertension , lupus, anxiety and says she takes a mood stabilizer for an unknown reason. She reports not taking her medications for 1 week. Symptoms are moderate to severe in severity. Unknown duration. Unknown onset. No known relieving or aggravating factors. Has no other medical complaints. Denies chest pain, shortness of breath, abdominal pain, nausea, vomiting, fevers, change in urine or stool. No other modifying factors or associated signs and symptoms. PFSH Past Medical History Arthritis: Yes Asthma: No Autoimmune Disease: No Bipolar Disorder: Yes Anxiety: Yes Depression: Yes Cancer: No Cardiovascular Problems: Yes High Cholesterol: No COPD: No Cerebrovascular Accident: Yes (X 3) Diabetes: No Endocrine: No Fibromyalgia: Yes Genitourinary: No Headaches: Yes Hepatitis: Yes (HEP C) Hypertension: Yes Immune Disorder: No Neurologic: Yes Psychiatric: Yes Reproductive: No Respiratory: No Immunizations Current: Yes Migraines: Yes Seizures: Yes (few months ago) Sleep Apnea: No Thyroid Disease: No Ulcer: Yes ?: Not Menopausal: Yes Past Surgical History Cardiac Surgery: Yes (HTN) Section: Yes Other Surgery: Yes (C SECTION [place] 1983 1987) Social History Alcohol Use: Yes Tobacco Use: Yes (1 ppd) Substance Use: No Allergies-Medications (Allergen,Severity, Reaction): Coded Allergies: No Known Allergies (Verified Allergy, Unknown, 01/08/17) Reported Meds & Prescriptions Reported Meds & Active Scripts Active Risperidone 0.5 Mg Tab 0.5 Mg PO Q12HR 15 Days Gnp Vitamin D3 Extra Stre (Cholecalciferol) 1,000 Unit Tab 2,000 Units PO DAILY 15 Days Famotidine 20 Mg Tab 20 Mg PO HS 15 Days Norvasc (Amlodipine Besylate) 5 Mg Tab 5 Mg PO DAILY 15 Days Gabapentin 600 Mg Tab 600 Mg PO TID 15 Days Lisinopril 10 Mg Tab 10 Mg PO Q12HR 15 Days Reported Flexeril (Cyclobenzaprine HCl) 10 Mg Tab 10 Mg PO TID Hydrocodone-Acetamin 5-325 mg (Hydrocodone/Acetaminophen) 5 Mg-325 Mg Tablet 1 Tab PO Q6HR Review of Systems Except as stated in HPI: all other systems reviewed are Neg Physical Exam Narrative GENERAL: Well-nourished, well-developed female patient, in no acute distress SKIN: Warm and dry. HEAD: Atraumatic. Normocephalic. EYES: Pupils equal and round. ENT: Mucosa pink and moist. NECK: Supple. Trachea midline. CARDIOVASCULAR: Regular rate and rhythm. No murmur appreciated. RESPIRATORY: No accessory muscle use. Clear to auscultation. Breath sounds equal bilaterally. GASTROINTESTINAL: Abdomen soft, non-tender, nondistended. Hepatic and splenic margins not palpable. Bowel sounds are active 4 quadrants. MUSCULOSKELETAL: No obvious deformities. No clubbing. No cyanosis. No edema. BACK: No CVA tenderness. NEUROLOGICAL: Awake and alert.. No obvious cranial nerve deficits. Motor grossly within normal limits. Normal speech. Moves all extremities. 5/5 strength to all extremities. PSYCHIATRIC: Delusional and hallucinating. Data Data Last Documented VS Vital Signs Date Time Temp Pulse Resp B/P (MAP) Pulse Ox O2 Delivery O2 Flow Rate FiO2 06/10/17 14:37 99.0 121 20 136/88 (104) 100 Orders Orders Complete Blood Count With Diff (06/10/17 15:42) Comprehensive Metabolic Panel (06/10/17 15:42) Thyroid Stimulating Hormone (06/10/17 15:42) Psych Screen (06/10/17 15:42) Drug Screen, Random Urine (06/10/17 15:42) Alcohol (Ethanol) (4/19/18 15:42) Salicylates (Aspirin) (06/10/17 15:42) Tylenol (Acetaminophen) (06/10/17 15:42) Urinalysis - C+S If Indicated (06/10/17 16:16) Lorazepam (Ativan) (06/10/17 17:30) Labs Laboratory Tests Test 06/10/17 15:55 06/10/17 15:57 White Blood Count 8.6 TH/MM3 Red Blood Count 4.31 MIL/MM3 Hemoglobin 13.1 GM/DL Hematocrit 37.6 % Mean Corpuscular Volume 87.3 FL Mean Corpuscular Hemoglobin 30.5 PG Mean Corpuscular Hemoglobin Concent 34.9 % Red Cell Distribution Width 13.3 % Platelet Count 346 TH/MM3 Mean Platelet Volume 7.8 FL Neutrophils (%) (Auto) 65.0 % Lymphocytes (%) (Auto) 27.4 % Monocytes (%) (Auto) 6.5 % Eosinophils (%) (Auto) 0.8 % Basophils (%) (Auto) 0.3 % Neutrophils # (Auto) 5.6 TH/MM3 Lymphocytes # (Auto) 2.4 TH/MM3 Monocytes # (Auto) 0.6 TH/MM3 Eosinophils # (Auto) 0.1 TH/MM3 Basophils # (Auto) 0.0 TH/MM3 CBC Comment DIFF FINAL Differential Comment Blood Urea Nitrogen 20 MG/DL Creatinine 0.90 MG/DL Random Glucose 96 MG/DL Total Protein 8.5 GM/DL Albumin 4.1 GM/DL Calcium Level 9.3 MG/DL Alkaline Phosphatase 75 U/L Aspartate Amino Transf (AST/SGOT) 19 U/L Alanine Aminotransferase (ALT/SGPT) 25 U/L Total Bilirubin 0.5 MG/DL Sodium Level 141 MEQ/L Potassium Level 3.9 MEQ/L Chloride Level 109 MEQ/L Carbon Dioxide Level 23.3 MEQ/L Anion Gap 9 MEQ/L Estimat Glomerular Filtration Rate 65 ML/MIN Thyroid Stimulating Hormone 3rd Gen 1.460 uIU/ML Salicylates Level 5.1 MG/DL Acetaminophen Level LESS THAN 2.0 MCG/ML Ethyl Alcohol Level LESS THAN 3 MG/DL Urine Opiates Screen NEG Urine Barbiturates Screen NEG Urine Amphetamines Screen NEG Urine Benzodiazepines Screen NEG Urine Cocaine Screen NEG Urine Cannabinoids Screen NEG MDM Medical Decision Making Medical Screen Exam Complete: Yes Emergency Medical Condition: Yes Medical Record Reviewed: Yes Differential Diagnosis Psychosis, delusions, medical clearance for psychiatric admission Narrative Course Patient presents voluntarily. Saab act initiated secondary to patient being a threat to herself. physical examination and vital signs are essentially unremarkable. Patient has no medical complaints to report. Psych screen has been ordered. If the laboratory results are unremarkable, the patient will be medically cleared for psychiatric evaluation and disposition. Diagnosis Primary Impression: Medical clearance for psychiatric admission Condition: Stable Minerva Loja [facility] Jun 10, 2017 17:42
[2017-06-10] MEDS ORDERED: OLANZapine IM 10 MG VIAL IM ONE (18:00)
[2017-06-10] MEDS ORDERED: diphenhydrAMINE HCL 50 MG/ML VIAL IM ONE (18:00)
[2017-06-10] MEDS ORDERED: LORazepam 2 MG/ML VIAL IM ONE (20:00)
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
[2017-06-10] MEDS ORDERED: MAGNESIUM HYDROXIDE SUSP 30 ML CUP PO PRN (20:45)
[2017-06-10] MEDS ORDERED: ALUMINUM/MAGNESIUM/SIMETH 30 ML CUP PO PRN (20:45)
[2017-06-10] MEDS: LISINOPRIL 10 MG TAB PO SCH (21:10)
[2017-06-10 22:20] VITALS: BP 113/56; PULSE 107; RESP 18; TEMP 98.5; O2SAT 98
[2017-06-11 06:06] VITALS: BP 99/76; PULSE 104; RESP 18; TEMP 97.4; O2SAT 96
[2017-06-11] MEDS ORDERED: HALOPERIDOL LACTATE 5 MG/ML AMP IM STA (08:17)
[2017-06-11] MEDS ORDERED: LORazepam 2 MG/ML VIAL IM STA (08:17)
[2017-06-11] MEDS ORDERED: diphenhydrAMINE HCL 50 MG/ML VIAL IM ONE (08:30)
[2017-06-11] MEDS: amLODIPine BESYLATE 5 MG TAB PO SCH (09:00)
[2017-06-11] MEDS: GABAPENTIN 300 MG CAP PO SCH ×3 (09:00→17:55)
[2017-06-11] MEDS: LISINOPRIL 10 MG TAB PO SCH ×2 (09:00→19:59)
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
[2017-06-11] MEDS ORDERED: BENZTROPINE MESYLATE 1 MG TAB PO PRN (11:00)
[2017-06-11] MEDS ORDERED: LORazepam 2 MG/ML VIAL IM PRN (11:00)
[2017-06-11] MEDS ORDERED: BENZTROPINE MESYLATE 2 MG/2 ML VIAL IM PRN (11:00)
[2017-06-11] MEDS ORDERED: LORazepam 1 MG TAB PO PRN (11:00)
[2017-06-11] MEDS ORDERED: HALOPERIDOL LACTATE 5 MG/ML AMP IM PRN (11:00)
[2017-06-11] MEDS: CYCLOBENZAPRINE HCL 10 MG TAB PO SCH ×2 (12:51→17:55)
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
[2017-06-11 17:07] VITALS: BP 119/66; PULSE 91; RESP 17; TEMP 96.7
[2017-06-11] MEDS ORDERED: diphenhydrAMINE HCL 50 MG CAP PO PRN (21:00)
[2017-06-11] MEDS: risperiDONE ODT 1 MG TAB PO SCH (21:00)
[2017-06-12 05:52] VITALS: BP 102/59; PULSE 108; RESP 18; TEMP 96.3; O2SAT 97
[2017-06-12 08:34] VITALS: BP 131/70; PULSE 113
[2017-06-12] MEDS: GABAPENTIN 300 MG CAP PO SCH ×3 (08:54→17:24)
[2017-06-12] MEDS: ACETAMINOPHEN 325 MG TAB PO PRN ×2 (08:55→13:38)
[2017-06-12] MEDS: CYCLOBENZAPRINE HCL 10 MG TAB PO SCH ×3 (08:55→17:24)
[2017-06-12] MEDS: LISINOPRIL 10 MG TAB PO SCH ×2 (08:55→20:31)
[2017-06-12] MEDS: amLODIPine BESYLATE 5 MG TAB PO SCH (08:55)
[2017-06-12] MEDS: risperiDONE ODT 1 MG TAB PO SCH ×2 (08:55→20:31)
--- NOTE | 2017-06-12 08:58 | EKG ---
Date Performed: 06/11/2017 Time Performed: 09:27:58 PTAGE: 56 years EKG: SINUS TACHYCARDIA BORDERLINE LEFT AXIS DEVIATION ABNORMAL RHYTHM ECG PREVIOUS TRACING : 01/15/2017 13.36 DOCTOR: Katherine Ragsdale Interpretating Date/Time 06/12/2017 08:56:06
[2017-06-12 09:32] VITALS: PULSE 116
[2017-06-12 11:46] LABS: BICARBONATE 24.7 MEQ/L (21.0-32.0); BLOOD UREA NITROGEN 17 MG/DL (7-18); CALCIUM 8.9 MG/DL (8.5-10.1); CHLORIDE 106 MEQ/L (98-107); CREATININE 0.78 MG/DL (0.50-1.00); GLOMERULAR FILTRATION RATE 77 ML/MIN (>89); GLUCOSE,RANDOM 108 MG/DL (74-106); SODIUM (NA) 137 MEQ/L (136-145)
[2017-06-12 11:47] LABS: CHOLESTEROL 196 MG/DL (120-200); TRIGLYCERIDES 118 MG/DL (42-150)
[2017-06-12 11:49] LABS: HDL CHOLESTEROL 50.2 MG/DL (40.0-60.0); LDL CHOLESTEROL 122 MG/DL (0-99)
[2017-06-12 13:31] LABS: HEMOGLOBIN A1C 5.7 % (4.3-6.0)
--- NOTE | 2017-06-12 14:56 | HHI.PYPN ---
Subjective Chief Complaint: Psychosis Remarks This is a request for second opinion. Admission note was reviewed and I agree with the history. Patient was seen and case was discussed with nursing. Patient has poor insight into her mental health. This morning she was asking about her pain medications. Per nursing, she received an ETO last night for agitated behavior. Patient says that a "friend" called her and told her that her daughter which was the reason for the agitation. This is likely a delusion. She is compliant with her medications and tolerating them well Mental Status Examination Appearance: Disheveled Consciousness: Alert Orientation: Person (At least) Motor Activity: Normal gait Speech: Rapid, Other (Loud) Language: Other (Rambling) Attention and Concentration: Easily Distracted Memory: Impaired (Psychosis interferes) Mood: Irritable, Other (Dysphoric) Affect: Labile Thought Process & Associations: Tangential Thought Content: Hallucinations, Delusional Hallucination Type: Other (Responding to internal stimuli) Delusion Type: Paranoid Suicidal Ideation: No (Unreliable to contract for safety) Suicidal Plan: No Suicidal Intention: No Homicidal Ideation: No Homicidal Plan: No Homicidal Intention: No Insight: Poor Judgment: Poor Results Labs Test 06/12/17 10:25 Blood Urea Nitrogen 17 MG/DL Creatinine 0.78 MG/DL Random Glucose 108 MG/DL Calcium Level 8.9 MG/DL Sodium Level 137 MEQ/L Potassium Level 4.2 MEQ/L Chloride Level 106 MEQ/L Carbon Dioxide Level 24.7 MEQ/L Anion Gap 6 MEQ/L Estimat Glomerular Filtration Rate 77 ML/MIN Hemoglobin A1c 5.7 % Triglycerides Level 118 MG/DL Cholesterol Level 196 MG/DL LDL Cholesterol 122 MG/DL HDL Cholesterol 50.2 MG/DL Cholesterol/HDL Ratio 3.90 RATIO Vitals/IOs Vital Signs Date Time Temp Pulse Resp B/P (MAP) Pulse Ox O2 Delivery O2 Flow Rate FiO2 06/12/17 09:32 116 06/12/17 08:34 131/70 (90) 06/12/17 05:52 96.3 18 97 Assessment & Plan Problem List: (1) Schizoaffective disorder, bipolar type ICD Codes: F25.0 - Schizoaffective disorder, bipolar type Assessment & Plan I agree with the first opinion to continue petition. Criteria include acute psychosis Justification for Cont. Inpt. Patient would decompensate in a less restrictive setting Request HC Surrog/Guard Advoc?: Yes Urbano Anders DO Jun 12, 2017 14:56
[2017-06-12 17:10] VITALS: BP 106/67; PULSE 100; RESP 19; TEMP 97.8; O2SAT 98
[2017-06-12] MEDS: ACETAMINOPHEN/HYDROcodone 325 MG/5 MG TAB PO PRN (17:24)
[2017-06-13] MEDS: ACETAMINOPHEN/HYDROcodone 325 MG/5 MG TAB PO PRN ×3 (01:25→17:16)
[2017-06-13 05:54] VITALS: BP 114/74; PULSE 100; RESP 17; TEMP 98.2
[2017-06-13 08:00] VITALS: BP 117/73; PULSE 93
[2017-06-13] MEDS: GABAPENTIN 300 MG CAP PO SCH ×3 (08:40→17:16)
[2017-06-13] MEDS: LISINOPRIL 10 MG TAB PO SCH ×2 (08:40→20:12)
[2017-06-13] MEDS: risperiDONE ODT 1 MG TAB PO SCH ×2 (08:41→20:12)
[2017-06-13] MEDS: CYCLOBENZAPRINE HCL 10 MG TAB PO SCH ×3 (08:41→17:16)
[2017-06-13] MEDS: amLODIPine BESYLATE 5 MG TAB PO SCH (08:41)
--- NOTE | 2017-06-13 12:32 | HHI.PYPN ---
Subjective Chief Complaint: Psychosis Remarks Patient was seen and case discussed with nursing. Patient's behavior has improved. She has not needed any ETO's. Today she is complaining of diarrhea apparently 5 times. Per nursing they are unsure if this is happening. She does have a mild rash. She is pleasant and cooperative during the interview. She denies auditory or visual hallucinations. Mental Status Examination Appearance: Disheveled Consciousness: Alert Orientation: Person (At least) Motor Activity: Normal gait Speech: Rapid, Other (Loud) Language: Other (Rambling) Attention and Concentration: Easily Distracted Memory: Impaired (Psychosis interferes) Mood: Irritable, Other (Dysphoric) Affect: Labile Thought Process & Associations: Tangential Thought Content: Hallucinations, Delusional Hallucination Type: Other (Responding to internal stimuli) Delusion Type: Paranoid Suicidal Ideation: No (Unreliable to contract for safety) Suicidal Plan: No Suicidal Intention: No Homicidal Ideation: No Homicidal Plan: No Homicidal Intention: No Insight: Poor Judgment: Poor Results Vitals/IOs Vital Signs Date Time Temp Pulse Resp B/P (MAP) Pulse Ox O2 Delivery O2 Flow Rate FiO2 06/13/17 08:00 93 117/73 (88) 06/13/17 05:54 98.2 17 06/12/17 17:10 98 Assessment & Plan Problem List: (1) Schizoaffective disorder, bipolar type ICD Codes: F25.0 - Schizoaffective disorder, bipolar type Assessment & Plan Loperamide as needed for diarrhea. Hydrocortisone cream for rash Justification for Cont. Inpt. Patient would decompensate in a less restrictive setting Request HC Surrog/Guard Advoc?: Yes Urbano Anders DO Jun 13, 2017 12:32
[2017-06-13] MEDS: HYDROCORTISONE 1% CREAM 30 GM TOPICAL SCH ×2 (13:36→17:16)
[2017-06-13] MEDS: LOPERAMIDE HCL 2 MG CAP PO PRN (13:37)
[2017-06-13 15:58] VITALS: BP 108/58; PULSE 94; RESP 18; TEMP 97.3; O2SAT 97
[2017-06-14] MEDS: ACETAMINOPHEN/HYDROcodone 325 MG/5 MG TAB PO PRN ×3 (01:25→17:13)
[2017-06-14 06:06] VITALS: BP 113/73; PULSE 90; RESP 20; TEMP 97.8; O2SAT 96
[2017-06-14] MEDS: LOPERAMIDE HCL 2 MG CAP PO PRN (07:39)
[2017-06-14] MEDS: LISINOPRIL 10 MG TAB PO SCH ×2 (08:49→20:51)
[2017-06-14] MEDS: amLODIPine BESYLATE 5 MG TAB PO SCH (08:49)
[2017-06-14] MEDS: GABAPENTIN 300 MG CAP PO SCH ×3 (08:49→17:12)
[2017-06-14] MEDS: CYCLOBENZAPRINE HCL 10 MG TAB PO SCH ×3 (08:49→17:12)
[2017-06-14] MEDS: risperiDONE ODT 1 MG TAB PO SCH ×2 (08:50→20:51)
[2017-06-14] MEDS: HYDROCORTISONE 1% CREAM 30 GM TOPICAL SCH ×3 (08:50→17:13)
[2017-06-14] MEDS: NICOTINE 21 MG/24 HR PATCH T-DERMAL SCH (09:45)
--- NOTE | 2017-06-14 10:02 | HHI.PYPN ---
Subjective Chief Complaint: Psychosis Remarks Patient seen and examined with nurse. Chart reviewed. Case discussed with nursing staff who reports patient remains needy and somatic. For example, the patient brought up something in a napkin that she maintained was a bedbug bite nursing staff discovered it was in fact a brownie crumb. On my examination today, the patient is somewhat calmer. She continues to complain of some sleep difficulty. Psychotic symptoms are abating. Denies side effects from medications. Complains of diarrhea but no other physical complaints. Spoke with patient's daughter/healthcare surrogate over the phone. She believes that the patient is improving with Risperdal treatment and provides consent for Risperdal Consta after discussion of the R/B/A. So long as patient does well today, she would be supportive of discharge home tomorrow. Review of Systems ROS Limitations: Psychotic Except as stated in HPI: all other systems reviewed are Neg Mental Status Examination Appearance: Appropriate Consciousness: Alert Orientation: Person, Place (At least) Motor Activity: Normal gait, Other (No hand tremor, no cogwheeling, no dystonia , no dyskinesia) Speech: Unremarkable Language: Adequate Fund of Knowledge: Adequate Attention and Concentration: Adequate Mood: Irritable (Decreasing) Affect: Blunt Thought Process & Associations: Circumstantial (More organized today) Thought Content: Delusional Hallucination Type: None Delusion Type: Other (Somatic, decreasing) Suicidal Ideation: No Suicidal Plan: No Suicidal Intention: No Homicidal Ideation: No Homicidal Plan: No Homicidal Intention: No Insight: Poor Judgment: Poor Results Labs Labs reviewed. Vitals/IOs Vital Signs Date Time Temp Pulse Resp B/P (MAP) Pulse Ox O2 Delivery O2 Flow Rate FiO2 06/14/17 06:06 97.8 90 20 113/73 (86) 96 Assessment & Plan Problem List: (1) Schizoaffective disorder, bipolar type ICD Codes: F25.0 - Schizoaffective disorder, bipolar type Assessment & Plan Initiate Risperdal Consta 25 mg IM. Continue oral Risperdal supplementation. Check a C. difficile and consult the hospitalist for complaints of diarrhea. Continue to monitor on the inpatient unit. Continue other medications and care as ordered. Justification for Cont. Inpt. Risk for decompensation in less restrictive environment. Medication changes. Possible complicating conditions. Discharge Planning Possible discharge tomorrow, Wednesday. Request HC Surrog/Guard Advoc?: Yes Michael Coffey MD Jun 14, 2017 10:02
[2017-06-14] MEDS ORDERED: risperiDONE EXT REL INJ 25 MG/2 ML VIAL IM ONE (10:15)
--- NOTE | 2017-06-14 12:46 | HHI.PR ---
Subjective Remarks Diarrhea occurred starting yesterday. Patient reports that she has received Imodium. After Imodium she has no further diarrhea. If this continues no further treatment will be needed. If diarrhea occurs again we will consider stool testing. Objective Vital Signs Date Time Temp Pulse Resp B/P (MAP) Pulse Ox O2 Delivery O2 Flow Rate FiO2 06/14/17 06:06 97.8 90 20 113/73 (86) 96 06/13/17 15:58 97.3 94 18 108/58 (75) 97 Result Diagram: 06/10/17 1555 06/12/17 1025 Objective Remarks GENERAL: NAD, A&Ox3 HEAD: Normocephalic. NECK: Supple, trachea midline. No lymphadenopathy. EYES: No scleral icterus. No injection or drainage. CARDIOVASCULAR: Regular rate and rhythm without murmurs, gallops, or rubs. RESPIRATORY: Breath sounds equal bilaterally. No accessory muscle use. GASTROINTESTINAL: Abdomen soft, non-tender, nondistended. MUSCULOSKELETAL: No cyanosis, or edema. SKIN: Warm and dry. NEURO: No focal neurological deficitis. A/P Problem List: (1) Diarrhea ICD Code: R19.7 - Diarrhea, unspecified (2) Schizoaffective disorder, bipolar type ICD Code: F25.0 - Schizoaffective disorder, bipolar type (3) Bipolar affective disorder, manic, severe, with psychotic behavior ICD Code: F31.2 - Bipolar affective disorder, manic, severe, with psychotic behavior Status: Acute Assessment and Plan 56-year-old female admitted secondary to bipolar type schizoaffective disorder with exacerbation. Diarrhea Continue Lomotil and Imodium as needed Monitor for any recurrence Resolved for now Consider further workup if recurrence occurs Schizoaffective disorder, bipolar type, acute exacerbation. Patient is improving Risperdal to continue As needed Ativan Hypertension Continue baseline treatment Follow blood pressures Adjust treatments as needed Lupus History of CVA Seizure disorder Fibromyalgia Gastroesophageal reflux disease These conditions are stable No changes to baseline treatments at this time Tobacco dependence Patient counseled to quit DVT prophylaxis Patient is ambulatory and ambulating Felice Anderson MD Jun 14, 2017 12:46
[2017-06-14] MEDS: ACETAMINOPHEN 325 MG TAB PO PRN (20:51)
[2017-06-15] MEDS: ACETAMINOPHEN/HYDROcodone 325 MG/5 MG TAB PO PRN ×3 (02:10→11:33)
[2017-06-15 06:10] VITALS: BP 128/74; PULSE 102; RESP 18; TEMP 97.6; O2SAT 100
[2017-06-15] MEDS: CYCLOBENZAPRINE HCL 10 MG TAB PO SCH ×2 (08:39→13:24)
[2017-06-15] MEDS: amLODIPine BESYLATE 5 MG TAB PO SCH (08:39)
[2017-06-15] MEDS: GABAPENTIN 300 MG CAP PO SCH ×2 (08:39→13:24)
[2017-06-15] MEDS: LISINOPRIL 10 MG TAB PO SCH (08:39)
[2017-06-15] MEDS: risperiDONE ODT 1 MG TAB PO SCH (08:39)
[2017-06-15] MEDS: NICOTINE 21 MG/24 HR PATCH T-DERMAL SCH (09:00)
[2017-06-15] MEDS: HYDROCORTISONE 1% CREAM 30 GM TOPICAL SCH ×2 (09:00→13:24)
[2017-06-15] MEDS ORDERED: REMOVE OLD PATCH T-DERMAL SCH (09:00)
[2017-06-15] MEDS ORDERED: ATOR20TA15 PO (10:31)
[2017-06-15] MEDS ORDERED: ATORVASTATIN 20 MG TAB PO SCH (11:00)
[2017-06-15] MEDS ORDERED: RISP2TAB37 PO (11:07)
[2017-06-15] MEDS ORDERED: RISP25P IM (11:07)
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
== END 2017-06-15 14:45 | disposition home or self-care (01) | DRG 885 ==
LOC: NEPD 14:22 → NEDA 20:43 → H270 21:30
PROVIDERS: ADMIT Psychiatry & Neurology Psychiatry; ATTEND Psychiatry & Neurology Psychiatry
DX: F25.0 Schizoaffective disorder, bipolar type (principal); F11.20 Opioid dependence, uncomplicated; I10 Essential (primary) hypertension; G40.909 Epilepsy, unspecified, not intractable, without status epilepticus; F41.9 Anxiety disorder, unspecified; M19.90 Unspecified osteoarthritis, unspecified site; M79.7 Fibromyalgia; K21.9 Gastro-esophageal reflux disease without esophagitis; F17.210 Nicotine dependence, cigarettes, uncomplicated; R21 Rash and other nonspecific skin eruption; R19.7 Diarrhea, unspecified; Z86.19 Personal history of other infectious and parasitic diseases; Z91.14 Patient's other noncompliance with medication regimen; Z86.73 Personal history of transient ischemic attack (TIA), and cerebral infarction without residual deficits
CPT/HCPCS: 80048; 80053; 80061; 80307; 83036; 84443; 85025; 93005; 96372; J1200; J1630; J2060; J2794; J3230

== ENCOUNTER 2017-10-27 10:43 | Inpatient (IN) ==
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
[2017-10-27 13:40] LABS: Bilirubin,Urine Negative (Negative); Clarity,Urine Hazy (Clear); Color,Urine Yellow (Yellw/Straw); Glucose,Urine (UA) Negative (Negative); Leukocyte Esterase,Urine Large (Negative); Mucus,Urine Few /lpf (Occasional); Nitrite,Urine Negative (Negative); Specific Gravity,Urine 1.015 (1.002-1.035); Squamous Epithelial Cell,Urine 8 /hpf (0-5)
[2017-10-27 13:45] LABS: Amphetamine Screen,Urine Neg (Neg); Barbiturate Screen,Urine Neg (Neg); Cannabinoid Screen,Urine Neg (Neg); Cocaine Screen,Urine Pos (Neg)
[2017-10-27 13:51] LABS: Opiate Screen,Urine Neg (Neg)
[2017-10-27 14:32] LABS: Baso % (Auto) 0.3 % (0.0-2.0); Eos # (Auto) 0.1 th/mm3 (0.0-0.4); Hematocrit 40.5 % (35.0-46.0); Hemoglobin 13.7 gm/dL (11.6-15.3); Lymph # (Auto) 2.5 th/mm3 (1.0-4.8); Lymph % (Auto) 35.3 % (9.0-44.0); Mean Corpuscular HGB Conc 33.8 % (32.0-36.0); Mean Corpuscular Hemoglobin 30.6 pg (27.0-34.0); Mean Corpuscular Volume 90.6 fL (80.0-100.0); Mean Platelet Volume 7.9 fL (7.0-11.0); Mono # (Auto) 0.4 th/mm3 (0.0-0.9); Mono % (Auto) 5.7 % (0.0-8.0); Neut % (Auto) 57.7 % (16.0-70.0); Platelet Count 269 th/mm3 (150-450); Red Blood Count 4.47 mil/mm3 (4.00-5.30); Red Cell Distribution Width 14.6 % (11.6-17.2)
[2017-10-27 15:01] LABS: Alanine Aminotransferase 26 U/L (10-53); Albumin 3.6 g/dL (3.4-5.0); Alkaline Phosphatase 63 U/L (45-117); Anion Gap 10 meq/L (5-15); Aspartate Aminotransferase 20 U/L (15-37); Blood Urea Nitrogen 15 mg/dL (7-18); Calcium 8.4 mg/dL (8.5-10.1); Chloride 103 meq/L (98-107); Glomerular Filtration Rate 60 mL/min (>89); Glucose,Random 114 mg/dL (74-106); Sodium 140 meq/L (136-145); Thyroid Stimulating Hormone 0.922 uIU/mL (0.358-3.740); Total Protein 7.6 g/dL (6.4-8.2)
[2017-10-27 15:06] LABS: Potassium 2.9 meq/L (3.5-5.1)
[2017-10-27] MEDS ORDERED: Aluminum/Magnesium/Simethacone Susp 30 ML UDC PO PRN (16:59)
[2017-10-27] MEDS ORDERED: Bisacodyl 10 MG Supp RECTAL PRN (16:59)
--- NOTE | 2017-10-27 17:40 | P.PNPSY ---
Subjective Remarks: This is a 57 year-old single, female who presents voluntarily to this department with complaints of suicidal ideation. She is previously known to this psychiatric department Assessment and Plan - Plan Plan: Estimated LOS: [] days
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
[2017-10-27] MEDS: Senna/Docusate Sodium 8.6/50 MG Tablet PO SCH (21:32)
[2017-10-28] MEDS: Acetaminophen 325 MG Tablet PO PRN (02:47)
[2017-10-28] MEDS ORDERED: Haloperidol Inj 5 MG/ML Ampul ONE (08:40)
[2017-10-28] MEDS ORDERED: Haloperidol Inj 5 MG/ML Ampul IM ONE (08:45)
[2017-10-28 08:56] LABS: Calcium 9.5 mg/dL (8.5-10.1); Carbon Dioxide 25.7 meq/L (21.0-32.0)
[2017-10-28 09:00] LABS: Chol/HDL Ratio 2.62 Ratio; HDL Cholesterol 68.2 mg/dL (40.0-60.0)
[2017-10-28] MEDS: Senna/Docusate Sodium 8.6/50 MG Tablet PO SCH ×2 (10:54→20:18)
[2017-10-28] MEDS ORDERED: Benztropine Inj 2 MG/2 ML Ampul IM PRN (12:27)
--- NOTE | 2017-10-28 14:27 | P.CONIM ---
History of Present Illness Reason for Consult: Medical management Primary Care Provider: No Primary Care Physician Chief Complaint: Back pain History of Present Illness: The patient is a 57-year-old female who presents voluntarily requesting psychiatric evaluation. She reports over the past several days she has had increasing paranoia, anxiety, lack of sleep and passive suicidal thoughts. Symptoms worsened, which prompted her to call the police who then brought her here. She reports that she was seen at [facility] and received an injection of an anti-psychotic medication which she does not recall the name of. This did not help with her symptoms. She denies any drug or alcohol use, auditory or visual hallucinations. She complains of severe back pain, stating that she fell out of a four story building recently. She would like some back imaging. She was also complaining of a headache and requested a head MRI. She says she still smokes two packs of cigarettes daily. She wants pain medication. Discussed with nursing. Family history: Denies pertinent family history Review of Systems All other systems reviewed negative except as stated in [facility] - History History Provided By: Patient - Medical History Medical History: Medical History (Last Updated 10/28/17 @ 14:14 by Bobby Chappell DO) Schizoaffective disorder (Chronic) Fibromyalgia GERD (gastroesophageal reflux disease) HTN (hypertension) - Social History I have reviewed the patient's Social History: Yes - Tobacco History Second Hand Smoke Exposure: No Tobacco Use In Past 30 Days: Yes Smoking Status: Current every day smoker Tobacco Type: Cigarettes - Alcohol History How Often Do You Have a Drink Containing Alcohol: Never - Substance Use History Substance History: No History of Abuse - Travel History Recent Travel in the [place] Within the Last 8 Weeks: No Recent Travel Out of the Country Within the Last 8 Weeks: No - Immunization History Tetanus Immunization: Unsure Medications and Allergies Active Medications: Active Medications Acetaminophen (Tylenol) 650 mg PO Q4H PRN PRN Reason: Pain 1-5 or Temp >101F Last Admin: 10/28/17 02:47 Dose: 650 mg Al Hydrox/Mg Hydrox/Simethicone (Mag-Al Plus Susp Liq) 30 ml PO Q6H PRN PRN Reason: DYSPEPSIA Al Hydroxide/Mg Hydroxide (Milk Of Magnesia Liq) 30 ml PO Q12H PRN PRN Reason: Mild Constipation Amlodipine Besylate (Norvasc) 5 mg PO DAILY [facility] Atorvastatin Calcium (Lipitor) 20 mg PO HS [facility] Benztropine Mesylate (Cogentin) 1 mg PO Q12H PRN PRN Reason: EXTRA PYRAMIDAL SYMPTOMS Benztropine Mesylate (Cogentin Inj) 1 mg IM Q12H PRN PRN Reason: EXTRA PYRAMIDAL SYMPTOMS Bisacodyl (Dulcolax Supp) 10 mg RECTAL DAILY PRN PRN Reason: SEVERE CONSITIPATION Diphenhydramine HCl (Benadryl) 50 mg PO HS PRN PRN Reason: INSOMNIA Last Admin: 10/27/17 21:31 Dose: 50 mg Diphenhydramine HCl (Benadryl Inj) 50 mg IM HS PRN PRN Reason: INSOMNIA Gabapentin (Neurontin) 300 mg PO TID [facility] Lactulose (Lactulose Liq) 30 ml PO DAILY PRN PRN Reason: SEVERE CONSITIPATION Lisinopril (Prinivil) 20 mg PO DAILY [facility] Nicotine (Habitrol 21 Mg Patch.24 Hr) 1 patch T-DERMAL DAILY [facility] Last Admin: 10/28/17 10:54 Dose: Not Given Olanzapine (Zyprexa) 5 mg PO BID [facility] Patch Removal (Remove Old Patch) 0 each T-DERMAL DAILY [facility] Last Admin: 10/28/17 10:55 Dose: Not Given Senna/Docusate Sodium (Diandra-Colace) 1 tab PO BID [facility] Last Admin: 10/28/17 10:54 Dose: Not Given Sennosides (Senokot) 17.2 mg PO Q12H PRN PRN Reason: Moderate Constipation Allergies Allergy/AdvReac Type Severity Reaction Status Date / Time No Known Allergies Allergy Unknown Abdominal Uncoded 09/26/17 15:02 Pain Home Medications Medication Instructions Recorded Confirmed Type alprazolam [Xanax] 0.5 mg PO PRN 09/26/17 10/27/17 History Exam Vital signs: Vital Signs 10/27/17 15:36 10/27/17 22:00 10/28/17 05:46 Temperature 97.9 F 98.2 F Pulse Rate 74 83 Respiratory Rate 18 18 Blood Pressure 133/77 148/91 H 141/99 H Pulse Oximetry 97 Intake & Output 10/27/17 10/28/17 10/28/17 18:59 06:59 18:59 Weight 68.946 kg 84.8 kg Other: Weight On Admission 67.9 kg Narrative: GENERAL: This is a well-developed well-nourished female who appears anxious. SKIN: Warm and dry. HEAD: Atraumatic. Normocephalic. EYES: Pupils equal and round. No scleral icterus. No injection or drainage. ENT: No nasal bleeding or discharge. Mucous membranes pink and moist. NECK: Trachea midline. No JVD. CARDIOVASCULAR: Regular rate and rhythm. No murmur appreciated. RESPIRATORY: No accessory muscle use. Clear to auscultation. Breath sounds equal bilaterally. GASTROINTESTINAL: Abdomen soft, non-tender, nondistended. Hepatic and splenic margins not palpable. MUSCULOSKELETAL: No obvious deformities. No clubbing. No cyanosis. No edema. NEUROLOGICAL: Awake and alert. No obvious cranial nerve deficits. Motor grossly within normal limits. Normal speech. PSYCHIATRIC: Depressed, anxious, flat affect, insight and judgment appear limited. Results - Labs CBC & Chem 7: 10/27/17 14:00 10/28/17 07:42 Labs: Laboratory Results - last 24 hr 10/27/17 10/27/17 10/28/17 14:00 14:00 07:42 WBC 7.0 RBC 4.47 Hgb 13.7 Hct 40.5 MCV 90.6 MCH 30.6 MCHC 33.8 RDW 14.6 Plt Count 269 MPV 7.9 Neut % (Auto) 57.7 Lymph % (Auto) 35.3 [place] % (Auto) 5.7 Eos % (Auto) 1.0 Baso % (Auto) 0.3 Neut # (Auto) 4.0 Lymph # (Auto) 2.5 [place] # (Auto) 0.4 Eos # (Auto) 0.1 Baso # (Auto) 0.0 WBC Differential . Differential Comment Auto diff final Sodium 140 140 Potassium 2.9 L* 4.0 D Chloride 103 105 Carbon Dioxide 27.0 25.7 Anion Gap 10 9 BUN 15 16 Creatinine 0.97 0.98 Estimated GFR 60 L 59 L Random Glucose 114 H 82 Calcium 8.4 L 9.5 D Total Bilirubin 0.5 AST 20 ALT 26 Alkaline Phosphatase 63 Total Protein 7.6 Albumin 3.6 Triglycerides 161 H Cholesterol 179 LDL Cholesterol, Calc 79 HDL Cholesterol 68.2 H Cholesterol/HDL Ratio 2.62 TSH 0.922 Serum Alcohol Less than 3 Assessment and Plan - Plan Suicidal ideation The pt presented voluntarily. -management per psychiatry. HTN Blood pressure fluctuates. -resume lisinopril 20 mg daily and amlodipine 5 mg daily. Adjust as needed. -clonidine as needed. Back pain/ Headache The pt states that she fell out of a building recently. She has been making many delusional statements per psychiatry team. Exam unremarkable. -ibuprofen as needed. -physical therapy. Hypokalemia Seems resolved. -monitor as needed. PPx: Ambulation
[2017-10-28] MEDS: Gabapentin 300 MG Capsule PO SCH ×2 (15:49→20:18)
[2017-10-28] MEDS: Lisinopril 20 MG Tablet PO SCH (15:49)
[2017-10-28] MEDS: amLODIPine 5 MG Tablet PO SCH (15:49)
[2017-10-28 16:01] LABS: Hemoglobin A1c 5.5 % (4.3-6.0)
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
[2017-10-29] MEDS ORDERED: traZODone 100 MG Tablet PO SCH (03:00)
[2017-10-29] MEDS: Ibuprofen 600 MG Tablet PO PRN ×2 (03:09→16:40)
[2017-10-29] MEDS: Lisinopril 20 MG Tablet PO SCH (08:45)
[2017-10-29] MEDS: Senna/Docusate Sodium 8.6/50 MG Tablet PO SCH ×2 (08:45→21:04)
[2017-10-29] MEDS: amLODIPine 5 MG Tablet PO SCH (08:46)
[2017-10-29] MEDS: Gabapentin 300 MG Capsule PO SCH ×2 (08:46→12:55)
[2017-10-29 09:07] LABS: Calcium 8.9 mg/dL (8.5-10.1); Carbon Dioxide 28.8 meq/L (21.0-32.0); Magnesium 2.1 mg/dL (1.5-2.5); Potassium 4.4 meq/L (3.5-5.1)
--- NOTE | 2017-10-29 13:51 | ECG ---
Date Performed: 10/28/2017 Time Performed: 14:03:28 PTAGE: 57 years EKG: Sinus rhythm NORMAL ECG Since the PREVIOUS TRACING , no significant change noted PREVIOUS TRACIN06/11/2017 09.27 DOCTOR: Brianna Davila Interpretating Date/Time 10/29/2017 13:49:09
--- NOTE | 2017-10-29 16:36 | P.PNPSY ---
Subjective Remarks: Patient seen for follow up, chart reviewed. Discussion with nursing staff reported the patient noted be more visible on unit, continues be noted to be talking to self, had poor sleep last evening. Patient was found in blade on unit noted B, cooperative for interview. Patient noted to be tearful at times during interview stating that she had poor sleep last evening, continues to have some anxiety stating that earlier today she felt like she was shaky and anxious and reported some stiffness of her neck. She states her mood is depressed, continues to endorse auditory hallucinations of the voices "laughing at me and telling me to kill myself." Patient has intermittent suicide ideations but states that it is lessening. Review of Systems All other systems reviewed negative except as stated in HPI Mental Status Examination Appearance: Disheveled Consciousness: Alert Orientation: x4 Motor Activity: Normal gait Speech: Unremarkable Language: Adequate Fund of Knowledge: Adequate Attention and Concentration: Adequate Memory: Unremarkable Mood: Anxious Affect: Anxious Thought Process & Associations: Loose associations, Disorganized, Tangential Thought Content: Bizarre thinking, Hallucinations, Delusional Hallucination Type: Auditory Delusion Type: Paranoid Suicidal Ideation: Yes (Denies at this time) Suicidal Plan: No Suicidal Intention: No Homicidal Ideation: No Homicidal Plan: No Homicidal Intention: No Insight: Poor Judgment: Impulsive Assessment and Plan - Assessment (1) Schizoaffective disorder Code(s): F25.9 - Schizoaffective disorder, unspecified Status: Chronic (2) Cocaine use Code(s): F14.90 - Cocaine use, unspecified, uncomplicated Status: Acute - Plan Plan: Patient continues with auditory hallucinations, reports continuing feeling depressed along with suicide ideations but states it is decreasing. Patient with poor sleep less evening. We will discontinue trazodone as it was not helpful and start zolpidem 5 mg p.o. at bedtime as needed for insomnia. We will also start fluoxetine 10 mg p.o. daily with upper titration for depression. We will start benztropine 0.5 mg p.o. twice daily for EPS. Increase olanzapine to 5 mg a.m./10 mg at bedtime for psychosis. Continue rest of medications. Continue to monitor mood and behavior. Discharge planning in progress. Justification for Continued Inpatient Stay: At risk of further decompensation a lower level of care. (1) Schizoaffective disorder Qualifiers: Schizoaffective disorder type: bipolar Qualified Code(s): F25.0 - Schizoaffective disorder, bipolar type
--- NOTE | 2017-10-29 17:21 | P.PN ---
Subjective Interval history: Follow up on patient with chronic back pain. Patient seen and examined. Patient states she fell out of a 3 story window three years ago. She is complaining of back pain the entire length of her spine with associated muscle spasms. She is requesting tramadol and flexeril. She denies any recent injury. She denies hitting her head recently. She denies any weakness, numbness or tingling. Physical Exam Vital signs: Vital Signs 10/29/17 06:58 Temperature 97.2 F L Pulse Rate 92 H Respiratory Rate 16 Blood Pressure 118/72 Pulse Oximetry 97 Narrative: GENERAL: WDWN female, INAD. Awake and alert. SKIN: Warm and dry. No generalized rash. HEAD: Atraumatic. Normocephalic. EYES: Pupils equal and round. No scleral icterus. No injection or drainage. ENT: No nasal bleeding or discharge. Mucous membranes pink and moist. NECK: Trachea midline. No JVD. CARDIOVASCULAR: Regular rate and rhythm. RESPIRATORY: No accessory muscle use. Clear to auscultation. Breath sounds equal bilaterally. GASTROINTESTINAL: Abdomen soft, non-tender, nondistended. +BS. MUSCULOSKELETAL: Extremities without clubbing, cyanosis, or edema. No obvious deformities. +Tenderness to palpation of thoracic and lumbar paraspinal muscles. Limited ROM. NEUROLOGICAL: Awake and alert. No obvious cranial nerve deficits. Motor grossly within normal limits. Able to move all extremities. Normal speech. PSYCHIATRIC: Calm and cooperative. Results - Labs CBC & Chem 7: 10/27/17 14:00 10/29/17 08:28 Laboratory Results - last 24 hr 10/29/17 08:28 Sodium 139 Potassium 4.4 Chloride 104 Carbon Dioxide 28.8 Anion Gap 6 BUN 14 Creatinine 0.80 Estimated GFR 74 L Random Glucose 82 Calcium 8.9 Magnesium 2.1 Assessment and Plan - Plan Suicidal ideation The pt presented voluntarily. -management per psychiatry. HTN Blood pressure fluctuates. -resumed on lisinopril 20 mg daily and amlodipine 5 mg daily. Adjust as needed. -clonidine as needed. Back pain, chronic The pt states that she fell out of a building recently. She has been making many delusional statements per psychiatry team. Patient states today she fell out of a third floor window 4 yrs ago -ibuprofen not working -evaluated by physical therapy - no needs identified -Tramadol 50mg q8h prn pain x 2 days [facility] Prescription Drug Monitoring Database has been queried and verified prior to prescribing the controlled substance. Acute pain exception. This patient has normal, predicted, physiological, and time limited response to an adverse mechanical stimulus associated with surgery, trauma, or acute illness as described in my notes. There is a lack of alternative treatment options other than to include the prescribed narcotic treatment for this condition. Hypokalemia Seems resolved. -monitor as needed. PPx: Ambulation Patient appears stable from hospitalist standpoint. [facility] will sign off. Please reconsult if needed. Code Status: FULL Discussed Condition With: patient, nursing staff, Dr. Anderson
[2017-10-29] MEDS: OLANZapine 10 MG Tablet PO SCH (21:04)
[2017-10-30] MEDS: Zolpidem Tartrate 5 MG Tablet PO PRN ×2 (00:28→20:13)
[2017-10-30] MEDS: amLODIPine 5 MG Tablet PO SCH (09:24)
[2017-10-30] MEDS: Lisinopril 20 MG Tablet PO SCH (09:26)
[2017-10-30] MEDS: Gabapentin 300 MG Capsule PO SCH ×3 (09:26→17:19)
[2017-10-30] MEDS: FLUoxetine 10 MG Capsule PO SCH (09:27)
[2017-10-30] MEDS: Senna/Docusate Sodium 8.6/50 MG Tablet PO SCH ×2 (09:29→20:15)
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
[2017-10-30] MEDS: OLANZapine 10 MG Tablet PO SCH (20:12)
[2017-10-30] MEDS: Ibuprofen 600 MG Tablet PO PRN (20:13)
[2017-10-31] MEDS: Gabapentin 300 MG Capsule PO SCH ×3 (08:51→17:03)
[2017-10-31] MEDS: amLODIPine 5 MG Tablet PO SCH (08:53)
[2017-10-31] MEDS: Lisinopril 20 MG Tablet PO SCH (08:54)
[2017-10-31] MEDS: FLUoxetine 10 MG Capsule PO SCH (08:55)
--- NOTE | 2017-10-31 12:55 | P.PNPSY ---
Subjective Chief Complaint: Schizoaffective Disorder. Cocaine Use Remarks: Reviewed electronic medical records and discussed case with staff. Follow-up was conducted in patient's room with JOS Wesley present. Patient states that she needs to stay in the hospital as she does not want to return to her daughters. Staff reports that she was making homicidal statements, when I asked her she states, " I could hurt someone." She has a vague plan and does not identify who she wants to hurt. She continues to endorse auditory hallucinations. She is very upbeat and participating in group activities, social with others on the unit. Review of Systems All other systems reviewed negative except as stated in HPI Mental Status Examination Appearance: Appropriate Consciousness: Alert Orientation: x4 Motor Activity: Normal gait Speech: Unremarkable Language: Adequate Fund of Knowledge: Adequate Attention and Concentration: Adequate Memory: Unremarkable Mood: Appropriate Affect: Euthymic Thought Process & Associations: Loose associations, Disorganized, Tangential Thought Content: Bizarre thinking, Hallucinations, Delusional Hallucination Type: Auditory Delusion Type: Paranoid Suicidal Ideation: Yes (Denies at this time) Suicidal Plan: No Suicidal Intention: No Homicidal Ideation: Yes (talking about hurting others, cannot identify others or does she have a plan) Homicidal Plan: No Homicidal Intention: No Insight: Poor Judgment: Impulsive Assessment and Plan - Assessment (1) Schizoaffective disorder Code(s): F25.9 - Schizoaffective disorder, unspecified Status: Acute (2) Cocaine use Code(s): F14.90 - Cocaine use, unspecified, uncomplicated Status: Acute - Plan Plan: Patient will be reevaluated Wednesday by the attending psychiatrist. Continue with current treatment plan. Justification for Continued Inpatient Stay: Moving patient to a less restrictive environment may result in her decompensation.
[2017-10-31] MEDS: Senna/Docusate Sodium 8.6/50 MG Tablet PO SCH ×2 (13:08→20:35)
[2017-10-31] MEDS: OLANZapine 10 MG Tablet PO SCH (20:35)
[2017-11-01] MEDS: FLUoxetine 10 MG Capsule PO SCH (08:56)
[2017-11-01] MEDS: Senna/Docusate Sodium 8.6/50 MG Tablet PO SCH ×2 (08:56→20:27)
[2017-11-01] MEDS: Gabapentin 300 MG Capsule PO SCH ×3 (08:58→18:26)
[2017-11-01] MEDS: Lisinopril 20 MG Tablet PO SCH (08:58)
[2017-11-01] MEDS: Ibuprofen 600 MG Tablet PO PRN (08:59)
[2017-11-01] MEDS: amLODIPine 5 MG Tablet PO SCH (09:02)
[2017-11-01] MEDS: OLANZapine 10 MG Tablet PO SCH ×2 (11:43→20:25)
--- NOTE | 2017-11-01 19:45 | P.PNPSY ---
Subjective Chief Complaint: Schizoaffective Disorder. Cocaine Use Remarks: Patient seen for follow up; chart reviewed. Discussion with nursing staff reported that patient was verbally threatening this morning with staff, reporting not having tramadol. Patient was found in hallway, heard occasional verbal outbursts but interviewed in room with nurse. Patient states that she is used to receiving "2 tramadol 3 times a day" and preservative on not being able to return back to her daughter's home. Patient was not able to engage in conversation of possible places she can be discharged to upon stabilization. Patient noted to be talking to self at times during interview and continues report auditory hallucinations. Patient transferred to 27 units as patient has occasional verbal outbursts which instructed on the current unit she is in. Review of Systems All other systems reviewed negative except as stated in HPI Mental Status Examination Appearance: Appropriate Consciousness: Alert Orientation: x4 Motor Activity: Normal gait Speech: Unremarkable Language: Adequate Fund of Knowledge: Adequate Attention and Concentration: Adequate Memory: Unremarkable Mood: Appropriate Affect: Euthymic Thought Process & Associations: Loose associations, Disorganized, Tangential Thought Content: Bizarre thinking, Hallucinations, Delusional Hallucination Type: Auditory Delusion Type: Paranoid Suicidal Ideation: Yes (Denies at this time) Suicidal Plan: No Suicidal Intention: No Homicidal Ideation: Yes (talking about hurting others, cannot identify others or does she have a plan) Homicidal Plan: No Homicidal Intention: No Insight: Poor Judgment: Impulsive Assessment and Plan - Assessment (1) Schizoaffective disorder Code(s): F25.9 - Schizoaffective disorder, unspecified Status: Chronic (2) Cocaine use Code(s): F14.90 - Cocaine use, unspecified, uncomplicated Status: Acute - Plan Plan: Patient continues to have occasional verbal outbursts, belligerent at times with staff and continue to be noted to be talking to self. Patient focused on analgesics despite patient having it available as needed basis. We will continue to titrate olanzapine to 10 mg p.o. twice daily for psychosis. We will continue to monitor mood and behavior. Patient continues was noted mood instability and irritability we will consider adding spelled stabilizer. For now will continue to monitor mood and behavior. Discharge planning in progress. Justification for Continued Inpatient Stay: At risk of further decompensation a lower level care. (1) Schizoaffective disorder Qualifiers: Schizoaffective disorder type: bipolar Qualified Code(s): F25.0 - Schizoaffective disorder, bipolar type
[2017-11-01] MEDS: Zolpidem Tartrate 5 MG Tablet PO PRN (20:39)
[2017-11-02] MEDS: FLUoxetine 10 MG Capsule PO SCH (08:28)
[2017-11-02] MEDS: Gabapentin 300 MG Capsule PO SCH ×3 (08:29→18:08)
[2017-11-02] MEDS: Lisinopril 20 MG Tablet PO SCH (08:29)
[2017-11-02] MEDS: Senna/Docusate Sodium 8.6/50 MG Tablet PO SCH ×2 (08:29→21:01)
[2017-11-02] MEDS: amLODIPine 5 MG Tablet PO SCH (08:29)
[2017-11-02] MEDS: OLANZapine 10 MG Tablet PO SCH ×2 (08:30→21:03)
[2017-11-02] MEDS: Zolpidem Tartrate 5 MG Tablet PO PRN (21:01)
--- NOTE | 2017-11-02 21:34 | P.PNPSY ---
Subjective Chief Complaint: Schizoaffective Disorder. Cocaine Use Remarks: Patient seen for follow up; chart reviewed. Discussion with nursing staff reported that patient has been more cooperative and pleasant. Patient found sitting in day room, noted to be calm and cooperative. Patient states that she contines to feel depresed and that her mood has been "half and half". She reports having continued AH but able to ignore them better. She denies any suicidal or homicidal ideation at this time but continues to ramble on about bizarre delusions of being an informant and having been hypnotized. Review of Systems All other systems reviewed negative except as stated in HPI Mental Status Examination Appearance: Appropriate Consciousness: Alert Orientation: x4 Motor Activity: Normal gait Speech: Unremarkable Language: Adequate Fund of Knowledge: Adequate Attention and Concentration: Adequate Memory: Unremarkable Mood: Appropriate Affect: Euthymic Thought Process & Associations: Loose associations, Disorganized, Tangential Thought Content: Bizarre thinking, Hallucinations (lessening), Delusional Hallucination Type: Auditory Delusion Type: Paranoid Suicidal Ideation: No Suicidal Plan: No Suicidal Intention: No Homicidal Ideation: No Homicidal Plan: No Homicidal Intention: No Insight: Poor Judgment: Impulsive Assessment and Plan - Assessment (1) Schizoaffective disorder Code(s): F25.9 - Schizoaffective disorder, unspecified Status: Chronic (2) Cocaine use Code(s): F14.90 - Cocaine use, unspecified, uncomplicated Status: Acute - Plan Plan: Patient at this time continues with AH but is lessening, continues with bizarre delusions, not endorseing an Si or HI. Patient reporting disturbed sleep, will increase zolpidem to 10mg PO HS for sleep disturbance. Continue rest of medications. Continue to monitor mood and behavior. Discharge planning in progress. Justification for Continued Inpatient Stay: At risk for further decompensation at lower level of care. (1) Schizoaffective disorder Qualifiers: Schizoaffective disorder type: bipolar Qualified Code(s): F25.0 - Schizoaffective disorder, bipolar type
[2017-11-03] MEDS: amLODIPine 5 MG Tablet PO SCH (08:00)
[2017-11-03] MEDS: Gabapentin 300 MG Capsule PO SCH ×3 (08:00→18:27)
[2017-11-03] MEDS: Lisinopril 20 MG Tablet PO SCH (08:02)
[2017-11-03] MEDS: Senna/Docusate Sodium 8.6/50 MG Tablet PO SCH ×2 (08:02→20:55)
[2017-11-03] MEDS: OLANZapine 10 MG Tablet PO SCH (08:03)
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
[2017-11-03] MEDS: FLUoxetine 10 MG Capsule PO SCH (12:30)
[2017-11-03] MEDS: Zolpidem Tartrate 5 MG Tablet PO PRN (20:54)
[2017-11-03] MEDS: OLANZapine 15 MG Tablet PO SCH (20:57)
[2017-11-04] MEDS: Ibuprofen 600 MG Tablet PO PRN ×2 (04:55→21:32)
[2017-11-04] MEDS: Lisinopril 20 MG Tablet PO SCH (08:10)
[2017-11-04] MEDS: Senna/Docusate Sodium 8.6/50 MG Tablet PO SCH ×2 (08:11→21:31)
[2017-11-04] MEDS: amLODIPine 5 MG Tablet PO SCH (08:12)
[2017-11-04] MEDS: OLANZapine 10 MG Tablet PO SCH (08:13)
[2017-11-04] MEDS: Gabapentin 300 MG Capsule PO SCH ×3 (08:15→18:10)
[2017-11-04] MEDS: FLUoxetine 10 MG Capsule PO SCH (09:36)
--- NOTE | 2017-11-04 16:39 | P.PNPSY ---
Subjective Chief Complaint: Schizoaffective Disorder. Cocaine Use Remarks: Patient seen for follow up, chart reviewed. Discussion with nursing staff reported patient wtih no behavioral dyscontrol no episodes of yelling. Patient was found sitting on hospital chair in dayroom, noted to be calm and cooperative. Patient states sleeping better, feels that the medications are helping. She reports lessening of the auditory hallucinations, mood feeling "a little depressed", denies any SI or HI. Review of Systems All other systems reviewed negative except as stated in HPI Mental Status Examination Appearance: Appropriate Consciousness: Alert Orientation: x4 Motor Activity: Normal gait, Other (No motor abnormalities noted) Speech: Unremarkable Language: Adequate Fund of Knowledge: Adequate Attention and Concentration: Adequate Memory: Unremarkable Mood: Appropriate Affect: Appropriate Thought Process & Associations: Tangential Thought Content: Bizarre thinking, Delusional Hallucination Type: None Delusion Type: Paranoid Suicidal Ideation: No Suicidal Plan: No Suicidal Intention: No Homicidal Ideation: No Homicidal Plan: No Homicidal Intention: No Insight: Poor Judgment: Impulsive Assessment and Plan - Assessment (1) Schizoaffective disorder Code(s): F25.9 - Schizoaffective disorder, unspecified Status: Chronic (2) Cocaine use Code(s): F14.90 - Cocaine use, unspecified, uncomplicated Status: Acute - Plan Plan: Patient continues with delusions of working as an informant, with lessening of perceptual disturbances, denying any suicidal or homicidal ideations today. Reports improved sleep. Continue current treatment, continue to monitor mood and behavior. Discharge planning in progress. Justification for Continued Inpatient Stay: At risk for further decompensation at lower level of care. (1) Schizoaffective disorder Qualifiers: Schizoaffective disorder type: bipolar Qualified Code(s): F25.0 - Schizoaffective disorder, bipolar type
[2017-11-04] MEDS: OLANZapine 15 MG Tablet PO SCH (21:31)
[2017-11-04] MEDS: Zolpidem Tartrate 5 MG Tablet PO PRN (21:31)
[2017-11-05] MEDS: Acetaminophen 325 MG Tablet PO PRN (02:53)
[2017-11-05] MEDS: Gabapentin 300 MG Capsule PO SCH ×3 (09:26→17:44)
[2017-11-05] MEDS: Lisinopril 20 MG Tablet PO SCH (09:27)
[2017-11-05] MEDS: Senna/Docusate Sodium 8.6/50 MG Tablet PO SCH ×2 (09:27→21:10)
[2017-11-05] MEDS: FLUoxetine 10 MG Capsule PO SCH (09:27)
[2017-11-05] MEDS: amLODIPine 5 MG Tablet PO SCH (09:27)
[2017-11-05] MEDS: OLANZapine 10 MG Tablet PO SCH (09:27)
[2017-11-05] MEDS ORDERED: Haloperidol Inj 5 MG/ML Ampul ONE (09:42)
[2017-11-05] MEDS ORDERED: Haloperidol Inj 5 MG/ML Ampul IM ONE (09:45)
[2017-11-05] MEDS: OLANZapine 15 MG Tablet PO SCH ×3 (17:16→21:18)
--- NOTE | 2017-11-05 18:55 | P.PNPSY ---
Subjective Chief Complaint: Schizoaffective Disorder. Cocaine Use Remarks: Patient seen for follow up; chart review. Discussion with nursing staff reported that patient had episode of agitation earlier in the morning as she did not receive her pain medication and required redirection which patient had been moved back to 2700 unit. Patient was seen on 2700 unit, noted to be calm and cooperative, mentions having been feeling upset due to not having received her pain meds. 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 She states that she also receives balcofen from her pain management clinic. Nurse was able to confirm recent pain regimen from the pain clinic. She denies any suiciidal or homicildal ideaitons. Review of Systems All other systems reviewed negative except as stated in HPI Mental Status Examination Appearance: Appropriate Consciousness: Alert Orientation: x4 Motor Activity: Normal gait, Other (No motor abnormalities noted) Speech: Unremarkable Language: Adequate Fund of Knowledge: Adequate Attention and Concentration: Adequate Memory: Unremarkable Mood: Appropriate Affect: Appropriate Thought Process & Associations: Tangential Thought Content: Bizarre thinking, Delusional Hallucination Type: None Delusion Type: Paranoid Suicidal Ideation: No Suicidal Plan: No Suicidal Intention: No Homicidal Ideation: No Homicidal Plan: No Homicidal Intention: No Insight: Poor Judgment: Impulsive Assessment and Plan - Assessment (1) Schizoaffective disorder Code(s): F25.9 - Schizoaffective disorder, unspecified Status: Chronic (2) Cocaine use Code(s): F14.90 - Cocaine use, unspecified, uncomplicated Status: Acute - Plan Plan: Patient continues with poor frustration tolerance, continues with bizarre delusions but no SI or HI. Will increase olanzapine to 15mg PO BID for psychosis , will add baclofen 10mg PO BID and continue rest of medications. Continue to monitor mood and behavior. Discharge planning in progress. Justification for Continued Inpatient Stay: At risk for further decompensation at lower level of care. (1) Schizoaffective disorder Qualifiers: Schizoaffective disorder type: bipolar Qualified Code(s): F25.0 - Schizoaffective disorder, bipolar type
[2017-11-05] MEDS: Zolpidem Tartrate 5 MG Tablet PO PRN (21:15)
[2017-11-05] MEDS: Baclofen 10 MG Tablet PO SCH (23:08)
[2017-11-06] MEDS: amLODIPine 5 MG Tablet PO SCH (09:02)
[2017-11-06] MEDS: Baclofen 10 MG Tablet PO SCH ×2 (09:02→20:52)
[2017-11-06] MEDS: FLUoxetine 10 MG Capsule PO SCH (09:02)
[2017-11-06] MEDS: OLANZapine 15 MG Tablet PO SCH ×2 (09:04→20:52)
[2017-11-06] MEDS: Gabapentin 300 MG Capsule PO SCH ×3 (09:04→18:16)
[2017-11-06] MEDS: Senna/Docusate Sodium 8.6/50 MG Tablet PO SCH ×2 (09:04→20:52)
[2017-11-06] MEDS: Lisinopril 20 MG Tablet PO SCH (09:05)
--- NOTE | 2017-11-06 12:57 | P.PNPSY ---
Subjective Chief Complaint: Schizoaffective Disorder. Cocaine Use Remarks: Reviewed electronic medical records and discussed case with staff. Follow-up was conducted in the milieu. Patient reports that she is "doing better" today. She states that she slept well and has good appetite. She reports that she has been attending all of the groups. She does become labile during the follow- up breaking into tears he is off on a tangent about gangsters. Mental Status Examination Appearance: Appropriate Consciousness: Alert Orientation: x4 Motor Activity: Normal gait, Other (No motor abnormalities noted) Speech: Unremarkable Language: Adequate Fund of Knowledge: Adequate Attention and Concentration: Adequate Memory: Unremarkable Mood: Appropriate Affect: Appropriate Thought Process & Associations: Tangential Thought Content: Bizarre thinking, Delusional Hallucination Type: None Delusion Type: Paranoid Suicidal Ideation: No Suicidal Plan: No Suicidal Intention: No Homicidal Ideation: No Homicidal Plan: No Homicidal Intention: No Insight: Poor Judgment: Impulsive Assessment and Plan - Assessment (1) Schizoaffective disorder Code(s): F25.9 - Schizoaffective disorder, unspecified Status: Acute - Plan Plan: Patient will be reevaluated Wednesday by the attending psychiatrist. Continue with current treatment plan. Justification for Continued Inpatient Stay: Moving this patient to a less restrictive environment would likely result in decompensation. (1) Schizoaffective disorder Qualifiers: Schizoaffective disorder type: bipolar Qualified Code(s): F25.0 - Schizoaffective disorder, bipolar type
[2017-11-06] MEDS: Acetaminophen 325 MG Tablet PO PRN (15:17)
[2017-11-06] MEDS: Zolpidem Tartrate 5 MG Tablet PO PRN (20:54)
[2017-11-07] MEDS: Senna/Docusate Sodium 8.6/50 MG Tablet PO SCH ×2 (08:08→22:00)
[2017-11-07] MEDS: Lisinopril 20 MG Tablet PO SCH (08:08)
[2017-11-07] MEDS: FLUoxetine 10 MG Capsule PO SCH (08:09)
[2017-11-07] MEDS: Gabapentin 300 MG Capsule PO SCH ×3 (08:09→17:39)
[2017-11-07] MEDS: Baclofen 10 MG Tablet PO SCH ×2 (08:09→22:00)
[2017-11-07] MEDS: OLANZapine 15 MG Tablet PO SCH ×2 (08:10→22:00)
[2017-11-07] MEDS: amLODIPine 5 MG Tablet PO SCH (09:10)
--- NOTE | 2017-11-07 12:15 | P.PNPSY ---
Subjective Chief Complaint: Schizoaffective Disorder. Cocaine Use Remarks: Reviewed electronic medical records and discussed case with staff. Follow-up was conducted in the dayroom with LIZA Olivo. Patient is focused on increasing the frequency of her Ultram. She has been banging on the window of the nurses station asking for the time of her next dose. 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 Patient states that she has been sleeping and eating well. Review of Systems All other systems reviewed negative except as stated in HPI Mental Status Examination Appearance: Appropriate Consciousness: Alert Orientation: x4 Motor Activity: Normal gait, Other (No motor abnormalities noted) Speech: Unremarkable Language: Adequate Fund of Knowledge: Adequate Attention and Concentration: Adequate Memory: Unremarkable Mood: Angry, Oppositional, Anxious, Irritable Affect: Appropriate, Anxious Thought Process & Associations: Tangential Thought Content: Bizarre thinking, Delusional Hallucination Type: None Delusion Type: Paranoid Suicidal Ideation: No Suicidal Plan: No Suicidal Intention: No Homicidal Ideation: No Homicidal Plan: No Homicidal Intention: No Insight: Poor Judgment: Impulsive Assessment and Plan - Assessment (1) Schizoaffective disorder Code(s): F25.9 - Schizoaffective disorder, unspecified Status: Acute (2) Cocaine use Code(s): F14.90 - Cocaine use, unspecified, uncomplicated Status: Acute - Plan Plan: Patient will be reevaluated Wednesday by the attending psychiatrist. Continue with current treatment plan. Justification for Continued Inpatient Stay: Moving patient to a less restrictive environment may result in her decompensation.
[2017-11-08] MEDS: Zolpidem Tartrate 5 MG Tablet PO PRN (01:23)
[2017-11-08] MEDS: FLUoxetine 10 MG Capsule PO SCH (08:24)
[2017-11-08] MEDS: amLODIPine 5 MG Tablet PO SCH (08:25)
[2017-11-08] MEDS: Baclofen 10 MG Tablet PO SCH ×2 (08:25→20:41)
[2017-11-08] MEDS: Lisinopril 20 MG Tablet PO SCH (08:25)
[2017-11-08] MEDS: Gabapentin 300 MG Capsule PO SCH ×3 (08:25→17:01)
[2017-11-08] MEDS: OLANZapine 15 MG Tablet PO SCH ×2 (09:15→20:47)
[2017-11-08] MEDS: Senna/Docusate Sodium 8.6/50 MG Tablet PO SCH ×2 (16:56→20:41)
--- NOTE | 2017-11-08 18:54 | P.PNPSY ---
Subjective Chief Complaint: Schizoaffective Disorder. Cocaine Use Remarks: Patient seen for follow up; chart reviewed. Discussion with nursing staff reported that patient with no behavioral disturbances. Patient states that the weekend went ok, denies any depressed mood, continues with chronic delusion of having been involved wtih the government but less intense. She denies any suicidal or homicidal ideations. States having some difficulty with sleep. She continues to be hopeful to be accepted into an assisted living facility. Review of Systems All other systems reviewed negative except as stated in HPI Mental Status Examination Appearance: Appropriate Consciousness: Alert Orientation: x4 Motor Activity: Normal gait, Other (No motor abnormalities noted) Speech: Unremarkable Language: Adequate Fund of Knowledge: Adequate Attention and Concentration: Adequate Memory: Unremarkable Mood: Good Affect: Appropriate Thought Process & Associations: Linear, Other (concrete) Thought Content: Delusional Hallucination Type: None Delusion Type: Paranoid (slightly) Suicidal Ideation: No Suicidal Plan: No Suicidal Intention: No Homicidal Ideation: No Homicidal Plan: No Homicidal Intention: No Insight: Poor Judgment: Impulsive Assessment and Plan - Assessment (1) Schizoaffective disorder Code(s): F25.9 - Schizoaffective disorder, unspecified Status: Acute (2) Cocaine use Code(s): F14.90 - Cocaine use, unspecified, uncomplicated Status: Acute - Plan Plan: Patient with mild bizarre delusion which likely is chronic but less intense. Patient noted with improved mood, no further behavioral outbursts, denied any suicidal or homicidal ideations. Denies any perceptual disturbances.Continue current treatment. Discharge planning in progress. Justification for Continued Inpatient Stay: At risk for further decompensation at lower level of care.
[2017-11-09 05:15] VITALS: BP 128/79; PULSE 86; RESP 17; TEMP 98.1; O2SAT 98
[2017-11-09] MEDS: amLODIPine 5 MG Tablet PO SCH (08:49)
[2017-11-09] MEDS: FLUoxetine 10 MG Capsule PO SCH (08:49)
[2017-11-09] MEDS: Senna/Docusate Sodium 8.6/50 MG Tablet PO SCH (08:49)
[2017-11-09] MEDS: Baclofen 10 MG Tablet PO SCH (08:50)
[2017-11-09] MEDS: Lisinopril 20 MG Tablet PO SCH (08:50)
[2017-11-09] MEDS: OLANZapine 15 MG Tablet PO SCH (08:50)
[2017-11-09] MEDS: Gabapentin 300 MG Capsule PO SCH ×2 (08:50→13:36)
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
[2017-11-09] MEDS ORDERED: Gabapentin 300 MG Capsule PO SCH (18:00)
== END 2017-11-09 17:35 | disposition home or self-care (01) ==
LOC: NEPD 10:43 → NEDA 16:59 → H260 19:44 → H270 10-28 12:52 → H260 10-29 22:47 → H270 11-01 12:12 → H260 11-04 17:29 → H270 11-05 09:46
PROVIDERS: ADMIT Student in an Organized Health Care Education/Training Program; ATTEND Student in an Organized Health Care Education/Training Program

== ENCOUNTER 2018-02-02 09:49 | Inpatient (IN) ==
--- NOTE | 2018-02-02 10:33 | ED ---
HPI General Chief Complaint: Psychiatric Symptoms Stated Complaint: psych eval Time Seen by Provider: 02/02/18 10:15 Source: patient Mode of arrival: ambulatory Limitations: other (currently in a maniac phase) History of Present Illness HPI Narrative: 57-year-old female states that she has a FBI agent ghost inside her that is trying to kill people and she wants to kill herself. She states she just went to [facility] and got a shot of Risperdal and had her medication adjusted. She states she did not try to hurt herself today but she has those thoughts. She states in the past she has cut herself and drank Clorox. She denies any other active symptoms other than she is afraid of what the Ghost will do. History is very difficult to obtain Related Data Home Medications Medication Instructions Recorded Confirmed divalproex 500 mg PO BID 01/28/18 02/02/18 clonidine HCl 0.1 mg PO BID 02/02/18 02/02/18 risperidone 1 mg PO BID 02/02/18 02/02/18 trazodone 100 mg PO HS 02/02/18 02/02/18 Allergies Allergy/AdvReac Type Severity Reaction Status Date / Time trazodone Allergy Muscle Pain Verified 02/02/18 10:49 Review of Systems ROS: all other systems reviewed are negative [facility] Medical History Medical History Schizoaffective disorder (Chronic) Bipolar disorder (Acute) Fibromyalgia (Acute) GERD (gastroesophageal reflux disease) (Acute) HTN (hypertension) (Acute) Seizure (Acute) Surgical History Surgical History H/O hand surgery (Acute) Social History Social History Substance History: Past History Second Hand Smoke Exposure: No Smoking Status: Former smoker Tobacco Type: Cigarettes How Often Do You Have a Drink Containing Alcohol: 2 to 4 times a month Recent Travel in [facility] within the Last 8 Weeks: No Recent Out of Country Travel within the Last 8 Weeks: No Immunization History Tetanus Immunization: Unsure Tetanus Immunization Year if Known: 2016 Exam Narrative Exam Narrative: GENERAL: 57 y/o female who is having tangential conversations and difficult to redirect SKIN: Focused skin assessment warm/dry. HEAD: Atraumatic. Normocephalic. EYES: Pupils equal and round. No scleral icterus. No injection or drainage. ENT: No nasal bleeding or discharge. Mucous membranes pink and moist. NECK: Trachea midline. No JVD. CARDIOVASCULAR: Regular rate and rhythm. RESPIRATORY: No accessory muscle use. Clear to auscultation. Breath sounds equal bilaterally. GASTROINTESTINAL: Abdomen soft, non-tender, nondistended. MUSCULOSKELETAL: No obvious deformities. No clubbing. No cyanosis. NEUROLOGICAL: Awake and alert. Motor grossly within normal limits. Normal speech. Course Reevaluation(s) Reevaluation #1: Patient medically cleared. Patient will likely need psychiatric admission and patient is under Saab act currently Initial Documented Vital Signs Temperature 97.7 F 02/02/18 10:05 Pulse Rate 105 H 02/02/18 10:05 Respiratory Rate 20 02/02/18 10:05 Blood Pressure 244/112 H 02/02/18 10:05 Pulse Oximetry 97 02/02/18 10:05 Last Documented Vital Signs Temperature 97.7 F 02/02/18 10:05 Pulse Rate 100 H 02/02/18 10:19 Respiratory Rate 20 02/02/18 10:05 Blood Pressure 169/100 H 02/02/18 10:19 Pulse Oximetry 97 02/02/18 10:05 Medical Decision Making [facility] Narrative Medical decision making narrative: We will check blood work for her medical clearance and patient will need to be placed under a Saab act as she will need psychiatric admission for further care. Medical Screen Exam Complete: Yes Emergency Medical Condition: Yes Differential Diagnosis Differential Diagnosis: Manic phase, schizophrenia, cocaine use, electrolyte Lab Data Lab results reviewed: Yes I reviewed the patient's lab results. Result diagrams: 02/02/18 10:25 02/02/18 10:25 Lab Results 02/02/18 02/02/18 02/02/18 Range/Units 10:25 10:25 10:25 WBC 7.3 (4.0-11.0) th/mm3 RBC 4.19 (4.00-5.30) mil/mm3 Hgb 13.5 (11.6-15.3) gm/dL Hct 39.0 (35.0-46.0) % MCV 93.2 (80.0-100.0) fL MCH 32.3 (27.0-34.0) pg MCHC 34.7 (32.0-36.0) % RDW 14.2 (11.6-17.2) % Plt Count 216 (150-450) th/mm3 MPV 8.1 (7.0-11.0) fL Neut % (Auto) 68.3 (16.0-70.0) % Lymph % (Auto) 22.2 (9.0-44.0) % Duc[place]ne % (Auto) 8.2 H (0.0-8.0) % Eos % (Auto) 1.0 (0.0-4.0) % Baso % (Auto) 0.3 (0.0-2.0) % Neut # (Auto) 5.0 (1.8-7.7) th/mm3 Lymph # (Auto) 1.6 (1.0-4.8) th/mm3 Duc[place]ne # (Auto) 0.6 (0.0-0.9) th/mm3 Eos # (Auto) 0.1 (0.0-0.4) th/mm3 Baso # (Auto) 0.0 (0.0-0.2) th/mm3 WBC Differential . Differential Comment Auto diff final Sodium 141 (136-145) meq/L Potassium 3.7 (3.5-5.1) meq/L Chloride 108 H (98-107) meq/L Carbon Dioxide 26.6 (21.0-32.0) meq/L Anion Gap 6 (5-15) meq/L BUN 16 (7-18) mg/dL Creatinine 0.96 (0.50-1.00) mg/dL Estimated GFR 60 L (>89) mL/min Random Glucose 104 (74-106) mg/dL Calcium 8.3 L (8.5-10.1) mg/dL Magnesium 2.1 (1.5-2.5) mg/dL Total Bilirubin 0.4 (0.2-1.0) mg/dL AST 9 L (15-37) U/L ALT 15 (10-53) U/L Alkaline Phosphatase 61 (45-117) U/L Total Protein 7.4 (6.4-8.2) g/dL Albumin 3.7 (3.4-5.0) g/dL Valproic Acid 22 L (50-100) mcg/mL Serum Alcohol Less than 3 (0-5) mg/dL Discharge Plan Discharge Disposition Patient Disposition: ED Admit(ED Internal Use Only) Discharge Details Diagnosis: Acute psychosis Physicians Team ED Provider: Liat Disla Primary Care Provider: Primary Care Grazyna Dave Rxs /Orders / Referrals /Forms Prescriptions: No Action divalproex 500 mg Tablet,Delayed Release (Dr/Ec) 500 mg PO BID RF: 0 clonidine HCl 0.1 mg Tablet 0.1 mg PO BID RF: 0 risperidone 2 mg Tablet 1 mg PO BID RF: 0 trazodone 100 mg Tablet 100 mg PO HS RF: 0 Discharge Interventions Interventions: Vital Signs Last Done: 02/02/18 10:19 Status ED Status: Medically Cleared
[2018-02-02 10:38] LABS: Baso % (Auto) 0.3 % (0.0-2.0); Eos # (Auto) 0.1 th/mm3 (0.0-0.4); Hemoglobin 13.5 gm/dL (11.6-15.3); Lymph # (Auto) 1.6 th/mm3 (1.0-4.8); Lymph % (Auto) 22.2 % (9.0-44.0); Mean Corpuscular HGB Conc 34.7 % (32.0-36.0); Mean Corpuscular Hemoglobin 32.3 pg (27.0-34.0); Mean Corpuscular Volume 93.2 fL (80.0-100.0); Mean Platelet Volume 8.1 fL (7.0-11.0); Mono # (Auto) 0.6 th/mm3 (0.0-0.9); Mono % (Auto) 8.2 % (0.0-8.0); Neut % (Auto) 68.3 % (16.0-70.0); Platelet Count 216 th/mm3 (150-450); Red Blood Count 4.19 mil/mm3 (4.00-5.30); Red Cell Distribution Width 14.2 % (11.6-17.2); White Blood Count 7.3 th/mm3 (4.0-11.0)
[2018-02-02 10:57] LABS: Alanine Aminotransferase 15 U/L (10-53); Albumin 3.7 g/dL (3.4-5.0); Anion Gap 6 meq/L (5-15); Aspartate Aminotransferase 9 U/L (15-37); Blood Urea Nitrogen 16 mg/dL (7-18); Calcium 8.3 mg/dL (8.5-10.1); Carbon Dioxide 26.6 meq/L (21.0-32.0); Chloride 108 meq/L (98-107); Glomerular Filtration Rate 60 mL/min (>89); Glucose,Random 104 mg/dL (74-106); Magnesium 2.1 mg/dL (1.5-2.5); Potassium 3.7 meq/L (3.5-5.1); Sodium 141 meq/L (136-145)
[2018-02-02 11:00] LABS: Alkaline Phosphatase 61 U/L (45-117); Total Protein 7.4 g/dL (6.4-8.2)
[2018-02-02] MEDS ORDERED: Acetaminophen 325 MG Tablet PO ONE (11:02)
[2018-02-02 11:58] LABS: Amphetamine Screen,Urine Neg (Neg); Barbiturate Screen,Urine Neg (Neg); Cannabinoid Screen,Urine Neg (Neg); Cocaine Screen,Urine Neg (Neg)
[2018-02-02 12:07] LABS: Opiate Screen,Urine Neg (Neg)
[2018-02-02] MEDS ORDERED: Bisacodyl 10 MG Supp RECTAL PRN (14:18)
--- NOTE | 2018-02-02 14:29 | P.HPPSY ---
Provisional Diagnosis Admission Date: February 02, 2018 09:49 Ava I.: Schizoaffective disorder, bipolar type Competence Certification of Person's Competence To Provide Express and Informed Consent I have personally examined Lisette Plunkett, a person being served at [facility] on, February 02, 2018 1424. Express and informed consent means consent voluntarily given in writing, by a competent person, after sufficient explanation and disclosure of the subject matter involved to enable the person to make a knowing and willful decision without any element of force, fraud, deceit, duress, or other form of constraint or coercion. This person is 18 years of age or older, is not now known to be incompetent to consent to treatment with a guardian advocate, and does not have a health care surrogate or proxy currently making medical treatment decisions. I have found this person to be one of the following: [] Competent to provide express and informed consent, as defined above, for voluntary admission to this facility and is competent to provide express and informed consent for treatment. He/she has the consistent capacity to make well reasoned, willful, and knowing decisions concerning his or her medical or mental health treatment. The person fully and consistently understands the purpose of the admission for examination/placement and is fully capable of personally exercising all rights assured under [place] Incompetent to provide express and informed consent to voluntary admission, and this is incompetent to provide express and informed consent to treatment. The person must be transferred to involuntary status and a petition for a guardian advocate filed with the Circuit Court. [x] Refusing to provide express and informed consent to voluntary admission but is competent to provide express and informed consent for treatment. The person must be discharged or transferred to involuntary status. Form shall be completed within 24 hours of a person's arrival at the receiving facility and filed in the clinical record of each person: 1. Admitted on a voluntary basis 2. Permitted to provide express and informed consent to his/her own treatment 3. Allowed to transfer from involuntary to voluntary status 4. Prior to permitting a person to consent to his or her own treatment after having been previously found incompetent to consent to treatment. History of Present Illness Capacity: Has capacity History of Present Illness: The patient is a 57-year-old woman, domiciled in a residential facility , single, unemployed, supported by [facility], well known by the service, with a psychiatric history of schizoaffective disorder, multiple psychiatric admissions , last hospitalization was here in [place] in October, outpatient care in [facility] , she was medicated yesterday with Abilify Maintena 400 mg, she is also on Seroquel 50 mg at bedtime, information confirmed by . Annabel Zavala, medical history of lupus and hypertension, who came to the hospital voluntarily stating that she has a FBI agent ghost inside her that is trying to kill people and she wants to kill herself. She states she just went to [facility] and got a shot of Risperdal and had her medication adjusted. She states she did not try to hurt herself today but she has those thoughts. She states in the past she has cut herself and drank Clorox. She denies any other active symptoms other than she is afraid of what the Ghost will do. Patient seen lying in the hospital stretcher with c/o pain in her toe, suicidal ideation, and making statements that include "I am a legal ghost."; "I feel suicidal." Per pt, she has not used crack in approx 6 mons. She is expressing c/o pain in her toe. "I have a broken toe." She took off her socks and when it was pointed out that her toe nails were long she advised that she has an appt on the with a front window cashier. She stated "I kelsey built by [employer] when I was 3 year old." She stated that there is an implant in her foot. During the psychiatric evaluation the patient becomes quite agitated and had to be medicated with ETO in order to calm her down. PPHx: Schizoaffective disorder bipolar type, multiple psychiatric hospitalizations, last hospitalization here in [place] in October 2017, outpatient care in [facility], she is a patient of Ms. Zavala, Abilify 400 mg IM was applied yesterday. PMHx: Hypertension and lupus Family Hx: Family psychiatric history Substance Hx: Denies the use of illegal drugs or alcohol Social Hx: The patient was born and raised in [place], she lives in residential facility in [facility], single, unemployed, supported by [facility] Review of Systems All other systems reviewed negative except as stated in HPI Psychiatric: Reports irritability, Reports paranoia, Reports other (Loosening of associations, granular delusions) [facility] - History History Provided By: Patient - Medical History Medical History: Medical History (Last Reviewed 02/02/18 @ 10:31 by Liat Disla MD) Schizoaffective disorder (Chronic) Bipolar disorder Fibromyalgia GERD (gastroesophageal reflux disease) HTN (hypertension) Seizure - Surgical History Surgical History: Surgical History (Last Reviewed 02/02/18 @ 10:31 by Liat Disla MD) H/O hand surgery - Tobacco History Second Hand Smoke Exposure: No Smoking Status: Former smoker Tobacco Type: Cigarettes - Alcohol History How Often Do You Have a Drink Containing Alcohol: 2 to 4 times a month - Substance Use History Substance History: Past History - Travel History Recent Travel in the [place] Within the Last 8 Weeks: No Recent Travel Out of the Country Within the Last 8 Weeks: No - Immunization History Tetanus Immunization: Unsure Tetanus Immunization Year if Known: 2015 Medications and Allergies Active Medications: Active Medications Al Hydrox/Mg Hydrox/Simethicone (Mag-Al Plus Susp Liq) 30 ml PO Q6H PRN PRN Reason: DYSPEPSIA Al Hydroxide/Mg Hydroxide (Milk Of Magnesia Liq) 30 ml PO Q12H PRN PRN Reason: Mild Constipation Aripiprazole (Abilify) 5 mg PO DAILY [facility] Bisacodyl (Dulcolax Supp) 10 mg RECTAL DAILY PRN PRN Reason: SEVERE CONSITIPATION Lactulose (Lactulose Liq) 30 ml PO DAILY PRN PRN Reason: SEVERE CONSITIPATION Quetiapine Fumarate (Seroquel) 25 mg PO HS [facility] Senna/Docusate Sodium (Diandra-Colace) 1 tab PO BID [facility] Sennosides (Senokot) 17.2 mg PO Q12H PRN PRN Reason: Moderate Constipation Allergies Allergy/AdvReac Type Severity Reaction Status Date / Time trazodone Allergy Muscle Pain Verified 02/02/18 10:49 Home Medications Medication Instructions Recorded Confirmed Type divalproex 500 mg PO BID 01/28/18 02/02/18 History clonidine HCl 0.1 mg PO BID 02/02/18 02/02/18 History risperidone 1 mg PO BID 02/02/18 02/02/18 History trazodone 100 mg PO HS 02/02/18 02/02/18 History Results - Labs CBC & Chem 7: 02/02/18 10:25 02/03/18 07:15 Labs: Laboratory Results - last 24 hr 02/02/18 02/02/18 02/02/18 10:25 10:25 10:25 WBC 7.3 RBC 4.19 Hgb 13.5 Hct 39.0 MCV 93.2 MCH 32.3 MCHC 34.7 RDW 14.2 Plt Count 216 MPV 8.1 Neut % (Auto) 68.3 Lymph % (Auto) 22.2 [place] % (Auto) 8.2 H Eos % (Auto) 1.0 Baso % (Auto) 0.3 Neut # (Auto) 5.0 Lymph # (Auto) 1.6 [place] # (Auto) 0.6 Eos # (Auto) 0.1 Baso # (Auto) 0.0 WBC Differential . Differential Comment Auto diff final Sodium 141 Potassium 3.7 Chloride 108 H Carbon Dioxide 26.6 Anion Gap 6 BUN 16 Creatinine 0.96 Estimated GFR 60 L Random Glucose 104 Calcium 8.3 L Magnesium 2.1 Total Bilirubin 0.4 AST 9 L ALT 15 Alkaline Phosphatase 61 Total Protein 7.4 Albumin 3.7 Urine Opiates Screen Ur Barbiturates Screen Valproic Acid 22 L Ur Amphetamines Screen U Benzodiazepines Scrn Urine Cocaine Screen U Cannabinoids Screen Serum Alcohol Less than 3 02/02/18 11:30 WBC RBC Hgb Hct MCV MCH MCHC RDW Plt Count MPV Neut % (Auto) Lymph % (Auto) [place] % (Auto) Eos % (Auto) Baso % (Auto) Neut # (Auto) Lymph # (Auto) [place] # (Auto) Eos # (Auto) Baso # (Auto) WBC Differential Differential Comment Sodium Potassium Chloride Carbon Dioxide Anion Gap BUN Creatinine Estimated GFR Random Glucose Calcium Magnesium Total Bilirubin AST ALT Alkaline Phosphatase Total Protein Albumin Urine Opiates Screen Neg Ur Barbiturates Screen Neg Valproic Acid Ur Amphetamines Screen Neg U Benzodiazepines Scrn Neg Urine Cocaine Screen Neg U Cannabinoids Screen Neg Serum Alcohol Exam Vital signs: Vital Signs 02/02/18 10:05 02/02/18 10:19 02/02/18 12:25 Temperature 97.7 F Pulse Rate 105 H 100 H 93 H Respiratory Rate 20 18 Blood Pressure 244/112 H 169/100 H 184/108 H Pulse Oximetry 97 97 Narrative: No catatonia, no withdrawal symptoms, no EPS, no psychomotor agitation or retardation - Constitutional no acute distress - Routine HEENT Exam Head: Present: normocephalic Eye: Present: EOMI, PERRL ENT: Present: mucous membranes moist Mental Status Examination Appearance: Appropriate Consciousness: Alert Orientation: x4 Motor Activity: Normal gait Speech: Unremarkable Language: Adequate Fund of Knowledge: Adequate Attention and Concentration: Adequate Memory: Unremarkable Mood: Appropriate Affect: Appropriate Thought Process & Associations: Loose associations, Disorganized Thought Content: Bizarre thinking, Thought blocking, Racing thoughts Hallucination Type: None Delusion Type: Bizarre, Paranoid, Somatic Suicidal Ideation: No Suicidal Plan: No Suicidal Intention: No Homicidal Ideation: No Homicidal Plan: No Homicidal Intention: No Insight: Poor Judgment: Poor Assessment and Plan - Assessment (1) Schizoaffective disorder Code(s): F25.9 - Schizoaffective disorder, unspecified Status: Acute - Plan Plan: The patient presents acutely psychotic. The patient has grandiose delusions, paranoid delusions, disorganized behavior and his speech, significant detachment from reality. She also reports suicidal ideation, no plan. She poses elevated risk of danger to self. The catheter admission for stabilization. Admit in psychiatry 2700. She was medicated with olanzapine 10 mg im here in [facility] due to agitation Start Abilify 5 mg daily for psychosis Start Seroquel 50 mg hs for insomnia Abilify mantenna 400 mg im applied yesterday Might benefit of an additional mood stabilizer, Depakote vs [place] chisel worker intervention for psychosocial assessment, individual and group therapies, to coordinate safe discharge Justification for Continued Inpatient Stay: Continue psychiatric admission. (1) Schizoaffective disorder Qualifiers:
[2018-02-02] MEDS: ARIPiprazole 5 MG Tablet PO SCH (17:50)
[2018-02-02] MEDS: Acetaminophen 325 MG Tablet PO PRN ×2 (18:00→23:56)
[2018-02-02] MEDS: QUEtiapine 25 MG Tablet PO SCH (20:48)
[2018-02-02] MEDS: Senna/Docusate Sodium 8.6/50 MG Tablet PO SCH (20:48)
[2018-02-03] MEDS: Acetaminophen 325 MG Tablet PO PRN ×3 (05:52→17:47)
[2018-02-03 07:55] LABS: Carbon Dioxide 28.4 meq/L (21.0-32.0); Potassium 4.2 meq/L (3.5-5.1)
[2018-02-03 07:59] LABS: Chol/HDL Ratio 3.25 Ratio
[2018-02-03] MEDS: Senna/Docusate Sodium 8.6/50 MG Tablet PO SCH ×2 (08:02→20:03)
[2018-02-03] MEDS: ARIPiprazole 5 MG Tablet PO SCH (08:02)
--- NOTE | 2018-02-03 11:12 | P.CONPSY ---
Provisional Diagnosis Admission Date: February 02, 2018 14:47 Celestine I.: Schizoaffective disorder bipolar type History of Present Illness Consult date: 02/03/18 Primary Care Provider: No Primary Care Physician History of Present Illness: Patient was seen for second opinion on her Saab act. Patient is floridly psychotic and unable to respond to questions. She perseverates on her psychotic she is controlled by an inner FBI agent. PMF - History History Provided By: Patient - Medical History Medical History: Medical History (Last Reviewed 02/02/18 @ 10:31 by Liat Disla MD) Schizoaffective disorder (Chronic) Bipolar disorder Fibromyalgia GERD (gastroesophageal reflux disease) HTN (hypertension) Seizure - Surgical History Surgical History: Surgical History (Last Reviewed 02/02/18 @ 10:31 by Liat Disla MD) H/O hand surgery - Tobacco History Second Hand Smoke Exposure: No Smoking Status: Former smoker Tobacco Type: Cigarettes - Alcohol History How Often Do You Have a Drink Containing Alcohol: 2 to 4 times a month - Substance Use History Substance History: Past History - Travel History Recent Travel in the [place] Within the Last 8 Weeks: No Recent Travel Out of the Country Within the Last 8 Weeks: No - Immunization History Tetanus Immunization: Unsure Tetanus Immunization Year if Known: 2015 Medications and Allergies Active Medications: Active Medications Acetaminophen (Tylenol) 650 mg PO Q6H PRN PRN Reason: PAIN SCALE 1-10 Last Admin: 02/03/18 05:52 Dose: 650 mg Al Hydrox/Mg Hydrox/Simethicone (Mag-Al Plus Susp Liq) 30 ml PO Q6H PRN PRN Reason: DYSPEPSIA Al Hydroxide/Mg Hydroxide (Milk Of Magnesia Liq) 30 ml PO Q12H PRN PRN Reason: Mild Constipation Aripiprazole (Abilify) 5 mg PO DAILY [facility] Last Admin: 02/03/18 08:02 Dose: 5 mg Bisacodyl (Dulcolax Supp) 10 mg RECTAL DAILY PRN PRN Reason: SEVERE CONSITIPATION Lactulose (Lactulose Liq) 30 ml PO DAILY PRN PRN Reason: SEVERE CONSITIPATION Quetiapine Fumarate (Seroquel) 25 mg PO HS [facility] Last Admin: 02/02/18 20:48 Dose: 25 mg Senna/Docusate Sodium (Diandra-Colace) 1 tab PO BID [facility] Last Admin: 02/03/18 08:02 Dose: 1 tab Sennosides (Senokot) 17.2 mg PO Q12H PRN PRN Reason: Moderate Constipation Allergies Allergy/AdvReac Type Severity Reaction Status Date / Time trazodone Allergy Muscle Pain Verified 02/02/18 10:49 Home Medications Medication Instructions Recorded Confirmed Type divalproex 500 mg PO BID 01/28/18 02/02/18 History clonidine HCl 0.1 mg PO BID 02/02/18 02/02/18 History risperidone 1 mg PO BID 02/02/18 02/02/18 History trazodone 100 mg PO HS 02/02/18 02/02/18 History Exam Vital signs: Vital Signs 02/02/18 12:25 02/02/18 14:32 02/02/18 15:15 Temperature Pulse Rate 93 H 88 98 H Respiratory Rate 18 20 18 Blood Pressure 184/108 H 177/102 H 170/102 H Pulse Oximetry 97 02/02/18 15:59 02/02/18 18:42 02/03/18 06:12 Temperature 98.3 F 97.9 F Pulse Rate 83 88 98 H Respiratory Rate 18 17 18 Blood Pressure 176/93 H 133/82 137/91 H Pulse Oximetry 100 88 L 93 L Intake & Output 02/02/18 02/03/18 02/03/18 18:59 06:59 18:59 Weight 74.3 kg Other: Weight On Admission 74.3 kg Mental Status Examination Appearance: Dirty, Disheveled Consciousness: Alert Orientation: Person, Place Motor Activity: Normal gait Speech: Pressured Language: Perseveration Fund of Knowledge: Poor (Cannot be tested) Attention and Concentration: Inadequate Memory: Impaired Mood: Manic Affect: Irritable, Labile Thought Process & Associations: Loose associations Thought Content: Bizarre thinking, Racing thoughts, Delusional, Obsessions Hallucination Type: Other (Patient is responding to internal stimuli but has a fixed delusion) Delusion Type: Paranoid Insight: Poor Judgment: Poor Mental Status Exam Remarks: Patient is floridly psychotic and manic Assessment and Plan - Plan Plan: acutely psychotic, admit in psychiatry, 2700 She was medicated with olanzapine 10 mg im here in [facility] due to agitation Start Abilify 5 mg daily for psychosis Start Seroquel 50 mg hs for insomnia Abilify mantenna 400 mg im applied yesterday Might benefit of an additional mood stabilizer, Depakote vs [place] Justification for Continued Inpatient Stay: Floridly psychotic and manic
[2018-02-03 16:41] LABS: Hemoglobin A1c 5.2 % (4.3-6.0)
[2018-02-03] MEDS: QUEtiapine 25 MG Tablet PO SCH (20:03)
[2018-02-04] MEDS: Acetaminophen 325 MG Tablet PO PRN ×4 (02:24→21:30)
[2018-02-04] MEDS: ARIPiprazole 5 MG Tablet PO SCH (08:52)
[2018-02-04] MEDS: Senna/Docusate Sodium 8.6/50 MG Tablet PO SCH ×2 (08:52→20:09)
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
[2018-02-04] MEDS: QUEtiapine 25 MG Tablet PO SCH (20:09)
[2018-02-04] MEDS: Aluminum/Magnesium/Simethacone Susp 30 ML UDC PO PRN (20:58)
[2018-02-05] MEDS: Acetaminophen 325 MG Tablet PO PRN ×2 (06:32→17:32)
[2018-02-05] MEDS: ARIPiprazole 5 MG Tablet PO SCH (09:01)
[2018-02-05] MEDS: Senna/Docusate Sodium 8.6/50 MG Tablet PO SCH ×2 (09:03→20:29)
--- NOTE | 2018-02-05 15:17 | P.PNPSY ---
Subjective Chief Complaint: Psychiatric symptoms: Radha and paranoid ideas Remarks: Reviewed electronic medical records and discussed case with staff. Follow-up was conducted in the hallway with JOS Celestin present. Patient immediately holds 2 fingers up in the year and begins to tell me how she has taken the oath to be an FBI agent. Her nurse states that she refused her Abilify this morning stating that was giving her a headache. However, they found that she had recently been given an Abilify Maintena injection at [facility]. Patient states that she is sleeping and eating well. She denies suicidal or homicidal ideations. When asked if she has auditory hallucinations or hears voices she is, "just Quintin Thakkar and the boys". Is requesting to have her medication changed Tylenol to Motrin for her pain. Her nurse is requesting a UA as patient has been frequently requesting going to the bathroom. Mental Status Examination Appearance: Appropriate Consciousness: Alert, Vigilant Orientation: Person, Place, Date/Time Motor Activity: Normal gait Speech: Rapid Language: Adequate Fund of Knowledge: Adequate Attention and Concentration: Adequate Memory: Unremarkable Mood: Manic Affect: Euthymic Thought Process & Associations: Loose associations, Disorganized Thought Content: Delusional (Highly organized paranoid ideas) Hallucination Type: None Delusion Type: Paranoid Suicidal Ideation: No Suicidal Plan: No Suicidal Intention: No Homicidal Ideation: No Homicidal Plan: No Homicidal Intention: No Insight: Poor Judgment: Poor Assessment and Plan - Assessment (1) Schizoaffective disorder Code(s): F25.9 - Schizoaffective disorder, unspecified Status: Acute - Plan Plan: Patient will be reevaluated by the attending psychiatrist. Continue with current treatment plan. Justification for Continued Inpatient Stay: Moving this patient to a less restrictive environment would likely result in decompensation. (1) Schizoaffective disorder Qualifiers:
[2018-02-05 16:31] LABS: Bilirubin,Urine Negative (Negative); Clarity,Urine Clear (Clear); Color,Urine Straw (Yellw/Straw); Glucose,Urine (UA) Negative (Negative); Leukocyte Esterase,Urine Moderate (Negative); Mucus,Urine Few /lpf (Occasional); Nitrite,Urine Negative (Negative); Specific Gravity,Urine 1.005 (1.002-1.035)
[2018-02-05] MEDS: QUEtiapine 25 MG Tablet PO SCH (20:29)
[2018-02-06] MEDS: Acetaminophen 325 MG Tablet PO PRN ×3 (02:13→20:22)
[2018-02-06] MEDS: Senna/Docusate Sodium 8.6/50 MG Tablet PO SCH ×2 (08:16→20:22)
[2018-02-06] MEDS: ARIPiprazole 5 MG Tablet PO SCH (08:17)
[2018-02-06] MEDS: Aluminum/Magnesium/Simethacone Susp 30 ML UDC PO PRN (10:11)
--- NOTE | 2018-02-06 11:25 | P.PNPSY ---
Subjective Chief Complaint: Psychiatric symptoms: Radha and paranoid ideas Remarks: Patient seen and examined with nurse, Pallavi, in weekend coverage for Dr. Davis. Chart reviewed. Case discussed with nursing staff who reports that patient has been intermittently agitated. I did observe the patient yelling out at some unseen person in the day area prior to my evaluation. She also calls through the nursing station [employer]URED INFORMATION SECURITY, saying that she is the [place]. On my examination, patient is delusional. She believes that a plate has been implanted in her right foot by the government when her was in [facility]. She also believes that she is a federal informer. Complains of some anxiety. She denies side effects from medications. Complains of some left foot discomfort, although she does appear to be bearing weight on this limb fine. No visible lesions or other abnormalities in the area where patient complains of pain. Vital Signs Temp Pulse Resp BP Pulse Ox 02/06/18 06:00 97.8 F 90 18 140/90 98 02/05/18 18:19 12 02/05/18 18:11 98.3 F 100 H 17 92/54 L 96 Laboratory Results - last 24 hr 02/05/18 16:15 Urine Color Straw Urine Clarity Clear Urine pH 7.0 Ur Specific [place] 1.005 Urine Protein Negative Urine Glucose (UA) Negative Urine Ketones Negative Urine Occult Blood Moderate H Urine Nitrate Negative Urine Bilirubin Negative Urine Urobilinogen Less than 2 Ur Leukocyte Esterase Moderate H Urine RBC 3 Urine WBC 4 Urine Mucus Few H Micro UA Comment Culture not ind Ur Microscopic Review Not Reportable Urine Culture Comments Culture not ind Labs reviewed. Review of Systems All other systems reviewed negative except as stated in HPI (Limitation: Psychosis) Mental Status Examination Appearance: Appropriate Consciousness: Alert, Vigilant Orientation: Person, Place, Date/Time Motor Activity: Normal gait, Other (No motor abnormalities noted) Speech: Rapid Language: Adequate Fund of Knowledge: Adequate Attention and Concentration: Adequate Memory: Unremarkable Mood: Manic Affect: Irritable Thought Process & Associations: Loose associations, Tangential Thought Content: Delusional Hallucination Type: None Delusion Type: Paranoid Suicidal Ideation: No Suicidal Plan: No Suicidal Intention: No Homicidal Ideation: No Homicidal Plan: No Homicidal Intention: No Insight: Poor Judgment: Poor Assessment and Plan - Assessment (1) Schizoaffective disorder Code(s): F25.9 - Schizoaffective disorder, unspecified Status: Acute - Plan Plan: Titrate Seroquel to 25 mg twice daily to target psychotic symptoms and also to help manage anxiety. Continue other psychotropics as ordered. Monitor complaints of left foot pain. To consider hospitalist or podiatry consultation if this worsens or fails to improve. Continue to monitor on the inpatient unit. Continue other care as ordered. Justification for Continued Inpatient Stay: Medication changes. Impairment in reality construction. High risk for decompensation in less restrictive environment. Discharge Planning: Per Dr. Davis. (1) Schizoaffective disorder Qualifiers:
[2018-02-06] MEDS ORDERED: QUEtiapine 25 MG Tablet PO SCH (21:00)
[2018-02-07] MEDS: Acetaminophen 325 MG Tablet PO PRN ×3 (02:31→20:17)
[2018-02-07] MEDS: Aluminum/Magnesium/Simethacone Susp 30 ML UDC PO PRN (02:46)
--- NOTE | 2018-02-07 08:33 | P.PNPSY ---
Subjective Chief Complaint: Psychiatric symptoms: Radha and paranoid ideas Remarks: 02/07/2018 Progress note narrative: Weekend progress notes reviewed. Patient seen with staff in the day room. Patient continues many of the same complaints. Although her level of agitation is diminished there remains a kind of crescendo that develops when allowed to continue verbalizing paranoid ideas. These are delivered and manic stream of jumbled, disconnected descriptions of one main theme of ideas implanted by [employer] agents. Patient continues somatic complaints which she relates to an implant in her foot. Observed walking she shows no evidence of favoring this foot. Nurses report daily agitation with no changes with the 25 mg twice a day of Seroquel. The patient is however sleeping only 3 hours at night which she reports is usual for her. The Seroquel will be increased to100 mg at at bedtime. There is likely a need to increase the Abilify as well but patient will be observed for dose of Seroquel prior to Abilify. Additionally the patient is given 50 mg 3 times a day for general agitation. AIMS=0. Mental Status Examination Appearance: Appropriate Consciousness: Alert, Vigilant Orientation: Person, Place, Date/Time Motor Activity: Normal gait, Other (No motor abnormalities noted) Speech: Rapid Language: Adequate Fund of Knowledge: Adequate Attention and Concentration: Adequate Memory: Unremarkable Mood: Manic Affect: Irritable Thought Process & Associations: Loose associations, Tangential Thought Content: Delusional Hallucination Type: None Delusion Type: Paranoid Suicidal Ideation: No Suicidal Plan: No Suicidal Intention: No Homicidal Ideation: No Homicidal Plan: No Homicidal Intention: No Insight: Poor Judgment: Poor Assessment and Plan - Assessment (1) Schizoaffective disorder Code(s): F25.9 - Schizoaffective disorder, unspecified Status: Acute - Plan Plan: Titrate Seroquel to 25 mg twice daily to target psychotic symptoms and also to help manage anxiety. Continue other psychotropics as ordered. Monitor complaints of left foot pain. To consider hospitalist or podiatry consultation if this worsens or fails to improve. Continue to monitor on the inpatient unit. Continue other care as ordered. February 07, 2018 Patient's agitation not responding to the Seroquel 25 mg. Nursing staff has requested Atarax for for agitation. Patient slept only at 3 hours and is allergic to trazodone. The Seroquel will be increased to 100 mg and will be given at at bedtime. Atarax 50 mg 3 times daily is ordered. It is uncertain whether the patient's description of an implant in her foot is a delusion since she describes it as being associated with [place] duty. Justification for Continued Inpatient Stay: The patient would decompensate in a less restrictive environment. There are medication changes with additional consideration of upward titration of her antipsychotic medications. (1) Schizoaffective disorder Qualifiers:
[2018-02-07] MEDS: Senna/Docusate Sodium 8.6/50 MG Tablet PO SCH ×2 (08:36→20:15)
[2018-02-07] MEDS: ARIPiprazole 5 MG Tablet PO SCH (08:37)
[2018-02-07] MEDS ORDERED: QUEtiapine 100 MG Tablet PO SCH (21:00)
[2018-02-08] MEDS: Acetaminophen 325 MG Tablet PO PRN ×2 (03:38→20:29)
--- NOTE | 2018-02-08 08:10 | P.PNPSY ---
Subjective Chief Complaint: Psychiatric symptoms: Radha and paranoid ideas Remarks: February 08, 2018 Patient seen record reviewed with the night nurse. Night staff reports the patient continues quite psychotic with decrease in her radha however there is no change in her paranoid ideation or her scattered associations. Attempts to discuss patient's home medications and current medications with her resulted in repeated references back disorganized paranoid ideation. In expressing her paranoid ideas there is scatter looseness as well Nursing notes that the patient blood pressure has been running high in the 170/ 90 area. Patient was on clonidine 0.1 mg twice a day at home, but was only given 1 dose here when she complained of a headache. Home medication of clonidine 0.1 mg twice a day will be resumed. Additional medication changes based on the patient's lack of progress: Increase Seroquel to 200 mg at at bedtime (patient was able to sleep for about 4 hours/ night on 100 mg.) Abilify will be increased to 10 mg twice a day. Patient demonstrates no dystonia. AIMS=0. Mental Status Examination Appearance: Appropriate Consciousness: Alert, Vigilant Orientation: Person, Place, Date/Time Motor Activity: Normal gait, Other (No motor abnormalities noted) Speech: Rapid Language: Adequate Fund of Knowledge: Adequate Attention and Concentration: Easily distracted Memory: Unremarkable Mood: Manic (Remains hypomanic) Affect: Anxious Thought Process & Associations: Loose associations, Disorganized, Tangential Thought Content: Delusional (Paranoid constructs centered on [employer]) Hallucination Type: None Delusion Type: Paranoid Suicidal Ideation: No Suicidal Plan: No Suicidal Intention: No Homicidal Ideation: No Homicidal Plan: No Homicidal Intention: No Insight: Poor Judgment: Poor Assessment and Plan - Assessment (1) Schizoaffective disorder Code(s): F25.9 - Schizoaffective disorder, unspecified Status: Acute - Plan Plan: Titrate Seroquel to 25 mg twice daily to target psychotic symptoms and also to help manage anxiety. Continue other psychotropics as ordered. Monitor complaints of left foot pain. To consider hospitalist or podiatry consultation if this worsens or fails to improve. Continue to monitor on the inpatient unit. Continue other care as ordered. February 07, 2018 Patient's agitation not responding to the Seroquel 25 mg. Nursing staff has requested Atarax for for agitation. Patient slept only at 3 hours and is allergic to trazodone. The Seroquel will be increased to 100 mg and will be given at at bedtime. Atarax 50 mg 3 times daily is ordered. It is uncertain whether the patient's description of an implant in her foot is a delusion since she describes it as being associated with [place] duty. February 08, 2018 Increase Seroquel to 200 mg at bedtime. Increase Abilify to 10 mg twice daily. Resume home medication of clonidine 0.1 mg every 12 hours. Justification for Continued Inpatient Stay: Clinically unstable and likely to decompensate further in a less restrictive environment. (1) Schizoaffective disorder Qualifiers:
[2018-02-08] MEDS: Senna/Docusate Sodium 8.6/50 MG Tablet PO SCH ×2 (08:18→20:29)
[2018-02-08] MEDS: ARIPiprazole 10 MG Tablet PO SCH ×2 (08:18→20:29)
[2018-02-08] MEDS: QUEtiapine 100 MG Tablet PO SCH (20:30)
[2018-02-08] MEDS: Aluminum/Magnesium/Simethacone Susp 30 ML UDC PO PRN (20:34)
[2018-02-09] MEDS: Acetaminophen 325 MG Tablet PO PRN ×2 (05:01→16:58)
[2018-02-09] MEDS: ARIPiprazole 10 MG Tablet PO SCH ×2 (08:15→20:27)
[2018-02-09] MEDS: Senna/Docusate Sodium 8.6/50 MG Tablet PO SCH ×2 (08:15→20:26)
--- NOTE | 2018-02-09 15:07 | P.PNPSY ---
Subjective Chief Complaint: Psychiatric symptoms: Radha and paranoid ideas Remarks: February 09, 2018 Subjective: Patient appears more depressed than manic today. She continues with the rambling paranoid ideas without the intensity of the past. The only lucid comment she made was to indicate that she was now sleeping twice as much as she had before. Credited to the increased dosage of Seroquel. She also notes that the increase in her Abilify has made her feel less agitated. Mental Status Examination Appearance: Appropriate Consciousness: Alert, Vigilant Orientation: Person, Place, Date/Time Motor Activity: Normal gait, Other (No motor abnormalities noted) Speech: Rapid Language: Adequate Fund of Knowledge: Adequate Attention and Concentration: Easily distracted Memory: Unremarkable Mood: Sad Affect: Sad Thought Process & Associations: Loose associations, Disorganized, Tangential Thought Content: Delusional (Paranoid constructs centered on [employer]) Hallucination Type: None Delusion Type: Paranoid Suicidal Ideation: No Suicidal Plan: No Suicidal Intention: No Homicidal Ideation: No Homicidal Plan: No Homicidal Intention: No Insight: Poor Judgment: Impulsive Assessment and Plan - Assessment (1) Schizoaffective disorder Code(s): F25.9 - Schizoaffective disorder, unspecified Status: Acute - Plan Plan: Titrate Seroquel to 25 mg twice daily to target psychotic symptoms and also to help manage anxiety. Continue other psychotropics as ordered. Monitor complaints of left foot pain. To consider hospitalist or podiatry consultation if this worsens or fails to improve. Continue to monitor on the inpatient unit. Continue other care as ordered. February 07, 2018 Patient's agitation not responding to the Seroquel 25 mg. Nursing staff has requested Atarax for for agitation. Patient slept only at 3 hours and is allergic to trazodone. The Seroquel will be increased to 100 mg and will be given at at bedtime. Atarax 50 mg 3 times daily is ordered. It is uncertain whether the patient's description of an implant in her foot is a delusion since she describes it as being associated with [place] duty. February 08, 2018 Increase Seroquel to 200 mg at bedtime. Increase Abilify to 10 mg twice daily. Resume home medication of clonidine 0.1 mg every 12 hours. February 09, 2018 Continue to observe for evidence of side effects with increased dose. Patient will be observed dosage for at least the next 3-4 days prior to any changes. Justification for Continued Inpatient Stay: Risk of further deterioration outside her current placement is almost certain. (1) Schizoaffective disorder Qualifiers:
[2018-02-09] MEDS: QUEtiapine 100 MG Tablet PO SCH (20:27)
[2018-02-10] MEDS: Acetaminophen 325 MG Tablet PO PRN ×3 (00:52→20:23)
[2018-02-10] MEDS: Senna/Docusate Sodium 8.6/50 MG Tablet PO SCH ×2 (08:10→20:23)
[2018-02-10] MEDS: ARIPiprazole 10 MG Tablet PO SCH ×2 (08:10→20:23)
[2018-02-10] MEDS: QUEtiapine 100 MG Tablet PO SCH (20:23)
[2018-02-11] MEDS: Acetaminophen 325 MG Tablet PO PRN (04:57)
[2018-02-11] MEDS: Senna/Docusate Sodium 8.6/50 MG Tablet PO SCH ×2 (08:04→21:53)
[2018-02-11] MEDS: ARIPiprazole 10 MG Tablet PO SCH ×2 (08:04→21:52)
--- NOTE | 2018-02-11 11:49 | P.PNPSY ---
Subjective Chief Complaint: Psychiatric symptoms: Radha and paranoid ideas Remarks: February 11, 2018 Subjective: Patient is somewhat improved today with more stable and organized processing. She appears to be making an effort to progress her paranoia. She is resting and getting good night's sleep. According to the review of the record and the patient's nursing staff reports she is participating in unit activities and accepting her medication Mental Status Examination Appearance: Appropriate Consciousness: Alert Orientation: Person, Place, Date/Time Motor Activity: Normal gait, Other (No motor abnormalities noted) Speech: Unremarkable Language: Adequate Fund of Knowledge: Adequate Attention and Concentration: Easily distracted Memory: Unremarkable Mood: Sad Affect: Sad Thought Process & Associations: Linear Thought Content: Delusional (Paranoid constructs centered on [employer]) Hallucination Type: None Delusion Type: Paranoid (Clearly making an effort to suppress, but remains paranoid) Suicidal Ideation: No Suicidal Plan: No Suicidal Intention: No Homicidal Ideation: No Homicidal Plan: No Homicidal Intention: No Insight: Poor Judgment: Impulsive Assessment and Plan - Assessment (1) Schizoaffective disorder Code(s): F25.9 - Schizoaffective disorder, unspecified Status: Acute - Plan Plan: Titrate Seroquel to 25 mg twice daily to target psychotic symptoms and also to help manage anxiety. Continue other psychotropics as ordered. Monitor complaints of left foot pain. To consider hospitalist or podiatry consultation if this worsens or fails to improve. Continue to monitor on the inpatient unit. Continue other care as ordered. February 07, 2018 Patient's agitation not responding to the Seroquel 25 mg. Nursing staff has requested Atarax for for agitation. Patient slept only at 3 hours and is allergic to trazodone. The Seroquel will be increased to 100 mg and will be given at at bedtime. Atarax 50 mg 3 times daily is ordered. It is uncertain whether the patient's description of an implant in her foot is a delusion since she describes it as being associated with [place] duty. February 08, 2018 Increase Seroquel to 200 mg at bedtime. Increase Abilify to 10 mg twice daily. Resume home medication of clonidine 0.1 mg every 12 hours. February 09, 2018 Continue to observe for evidence of side effects with increased dose. Patient will be observed dosage for at least the next 3-4 days prior to any changes. February 10, 2018 Patient shows no signs of side effects, but there is little improvement in her paranoid ideation February 11, 2018 Plan is to continue medications at current level and continue the activities and participate in groups. Justification for Continued Inpatient Stay: Patient is at risk for decompensation less restrictive environments and remains on the unit because of her paranoid delusions and instability of reality testing. (1) Schizoaffective disorder Qualifiers:
[2018-02-11] MEDS: QUEtiapine 100 MG Tablet PO SCH (21:53)
[2018-02-12] MEDS: Acetaminophen 325 MG Tablet PO PRN ×2 (04:03→20:41)
[2018-02-12] MEDS: ARIPiprazole 10 MG Tablet PO SCH ×2 (08:03→20:39)
[2018-02-12] MEDS: Senna/Docusate Sodium 8.6/50 MG Tablet PO SCH ×2 (08:04→20:39)
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
[2018-02-12] MEDS: QUEtiapine 100 MG Tablet PO SCH (20:39)
[2018-02-13] MEDS: Senna/Docusate Sodium 8.6/50 MG Tablet PO SCH ×2 (08:38→20:34)
[2018-02-13] MEDS: ARIPiprazole 10 MG Tablet PO SCH ×2 (08:38→20:31)
[2018-02-13] MEDS: Aluminum/Magnesium/Simethacone Susp 30 ML UDC PO PRN (11:04)
--- NOTE | 2018-02-13 13:18 | P.PNPSY ---
Subjective Chief Complaint: Psychiatric symptoms: Radha and paranoid ideas Remarks: Reviewed electronic medical record and discussed with nursing staff. This patient is well known to me as I see her in the outpatient clinic. Patient is in the day room. She is calm and cooperative. Denies any anxiety. Still somewhat paranoid. States that she has been sleeping better and that she is anxious to return to her residence. She is part of Dr. Silva's program and is provided housing. Her appetite is good. Nursing reports that they feel that she is improving. Review of Systems All other systems reviewed negative except as stated in HPI Mental Status Examination Appearance: Appropriate Consciousness: Alert Orientation: Person, Place, Date/Time Motor Activity: Normal gait, Other (No motor abnormalities noted) Speech: Unremarkable Language: Adequate Fund of Knowledge: Adequate Attention and Concentration: Easily distracted Memory: Unremarkable Mood: Appropriate Affect: Appropriate Thought Process & Associations: Linear Hallucination Type: None Delusion Type: Paranoid (Clearly making an effort to suppress, but remains paranoid) Suicidal Ideation: No Suicidal Plan: No Suicidal Intention: No Homicidal Ideation: No Homicidal Plan: No Homicidal Intention: No Insight: Poor Judgment: Impulsive Assessment and Plan - Assessment (1) Schizoaffective disorder Code(s): F25.9 - Schizoaffective disorder, unspecified Status: Acute - Plan Plan: 02/13/18 continue current treatment plan. Titrate Seroquel to 25 mg twice daily to target psychotic symptoms and also to help manage anxiety. Continue other psychotropics as ordered. Monitor complaints of left foot pain. To consider hospitalist or podiatry consultation if this worsens or fails to improve. Continue to monitor on the inpatient unit. Continue other care as ordered. February 07, 2018 Patient's agitation not responding to the Seroquel 25 mg. Nursing staff has requested Atarax for for agitation. Patient slept only at 3 hours and is allergic to trazodone. The Seroquel will be increased to 100 mg and will be given at at bedtime. Atarax 50 mg 3 times daily is ordered. It is uncertain whether the patient's description of an implant in her foot is a delusion since she describes it as being associated with [place] duty. February 08, 2018 Increase Seroquel to 200 mg at bedtime. Increase Abilify to 10 mg twice daily. Resume home medication of clonidine 0.1 mg every 12 hours. February 09, 2018 Continue to observe for evidence of side effects with increased dose. Patient will be observed dosage for at least the next 3-4 days prior to any changes. February 10, 2018 Patient shows no signs of side effects, but there is little improvement in her paranoid ideation February 11, 2018 Plan is to continue medications at current level and continue the activities and participate in groups. February 12, 2018 Fair response to treatment, the patient is currently denying hallucinations and no paranoid delusions elicited on exam. She does complain of anxiety and symptoms of PTSD and after discussion of risks benefits side effects and alternatives she agrees with recommendation to increase her clonidine to help with recurrent nightmares as well as hypertension...Continue inpatient treatment plan with clonidine increased to 0.15 mg twice a day. Justification for Continued Inpatient Stay: Moving patient to a less restrictive environment may result in her decompensation. (1) Schizoaffective disorder Qualifiers:
[2018-02-13] MEDS: Acetaminophen 325 MG Tablet PO PRN (16:55)
[2018-02-13] MEDS: QUEtiapine 100 MG Tablet PO SCH (20:30)
[2018-02-14] MEDS: Acetaminophen 325 MG Tablet PO PRN (03:25)
[2018-02-14 06:23] VITALS: BP 123/64; PULSE 80; RESP 17; TEMP 98; O2SAT 100
[2018-02-14] MEDS: Senna/Docusate Sodium 8.6/50 MG Tablet PO SCH (08:11)
[2018-02-14] MEDS: ARIPiprazole 10 MG Tablet PO SCH (08:12)
--- NOTE | 2018-02-14 13:21 | P.DSPSY ---
Psychiatry Discharge Summary Inpatient Psychiatric care?: Yes Advance Directives: No Mental Health Advance Directive: No Health Care Proxy: No - Admission Admission Date: February 02, 2018 14:47 Brief History: The patient is a 57-year-old woman, domiciled in a residential facility , single, unemployed, supported by [facility], well known by the service, with a psychiatric history of schizoaffective disorder, multiple psychiatric admissions , last hospitalization was here in [place] in October, outpatient care in [facility] , she was medicated yesterday with Abilify Maintena 400 mg, she is also on Seroquel 50 mg at bedtime, information confirmed by Earlene Annabel Zavala, medical history of lupus and hypertension, who came to the hospital voluntarily stating that she has a FBI agent ghost inside her that is trying to kill people and she wants to kill herself. She states she just went to [facility] and got a shot of Risperdal and had her medication adjusted. She states she did not try to hurt herself today but she has those thoughts. She states in the past she has cut herself and drank Clorox. She denies any other active symptoms other than she is afraid of what the Ghost will do. Patient seen lying in the hospital stretcher with c/o pain in her toe, suicidal ideation, and making statements that include "I am a legal ghost."; "I feel suicidal." Per pt, she has not used crack in approx 6 mons. She is expressing c/o pain in her toe. "I have a broken toe." She took off her socks and when it was pointed out that her toe nails were long she advised that she has an appt on the with a election watcher. She stated "I kelsey built by [employer] when I was 3 year old." She stated that there is an implant in her foot. During the psychiatric evaluation the patient becomes quite agitated and had to be medicated with ETO in order to calm her down. PPHx: Schizoaffective disorder bipolar type, multiple psychiatric hospitalizations, last hospitalization here in [place] in October 2017, outpatient care in [facility], she is a patient of Ms. Zavala, Abilify 400 mg IM was applied yesterday. PMHx: Hypertension and lupus Family Hx: Family psychiatric history Substance Hx: Denies the use of illegal drugs or alcohol Social Hx: The patient was born and raised in [place], she lives in residential facility in [facility], single, unemployed, supported by [facility] Tobacco Use In Past 30 Days: No How Often Do You Have a Drink Containing Alcohol: 2 to 4 times a month Hospital Course: February 14, 2018 Patient's stay on this occasion has been marked by acuity the first several days followed by rapid improvement with the increase in her medication on the third day however her hospitalization. The patient continues to obsess about her delusion of FPI involvement, but she now recognizes that this is baseline for her. There is none of the loose associations manic behavior noted the first 3 days of the hospitalization. The patient feels she is ready to go home and has content with the discharge plans. At least for now, she is able to recognize the need for compliance with her medication and seems confident that it will continue to help her. - Discharge Discharge Date: 02/14/18 Discharge Disposition: Home - Discharge Instructions Discharge Diet: Regular Diet Activities You Can Perform: Regular- No Restrictions Activities to Avoid: Driving for 24 Hours - Discharge Time > 30 minutes Mental Status Examination Appearance: Appropriate Consciousness: Alert Orientation: Person, Place, Date/Time Motor Activity: Normal gait, Other (No motor abnormalities noted) Speech: Unremarkable Language: Adequate Fund of Knowledge: Adequate Attention and Concentration: Easily distracted Memory: Unremarkable Mood: Appropriate Affect: Appropriate Thought Process & Associations: Linear Thought Content: Delusional (Paranoid constructs centered on [employer]) Hallucination Type: None Delusion Type: Paranoid (Clearly making an effort to suppress, but remains paranoid) Suicidal Ideation: No Suicidal Plan: No Suicidal Intention: No Homicidal Ideation: No Homicidal Plan: No Homicidal Intention: No Insight: Poor Judgment: Impulsive Discharge/Advance Care Plan - Results Vital Signs: Last Vital Signs Temp 98.0 F 02/14/18 06:22 Pulse 80 02/14/18 06:22 Resp 17 02/14/18 06:22 BP 123/64 02/14/18 06:22 Pulse Ox 100 02/14/18 06:22 Lab Results: Laboratory Results Hemoglobin A1c 5.2 % (4.3-6.0) 02/03/18 07:15 Triglycerides 105 mg/dL (42-150) 02/03/18 07:15 Cholesterol 192 mg/dL (120-200) 02/03/18 07:15 LDL Cholesterol, Calc 112 mg/dL (0-99) H 02/03/18 07:15 HDL Cholesterol 59.0 mg/dL (40.0-60.0) 02/03/18 07:15 Urine Culture Comments Culture not ind 02/05/18 16:15 Valproic Acid 22 mcg/mL (50-100) L 02/02/18 10:25 Summary of Procedures: None Pending Results: None - Medications Number of antipsychotic medications at discharge: 2 - Discharge Care Plan Goals to Promote Your Health: * To prevent worsening of your condition and complications * To maintain your health at the optimal level Directions to Meet Your Goals: Take your medications as prescribed Follow your dietary instruction Follow activity as directed Keep your appointments as scheduled Take your immunizations and boosters as scheduled If your symptoms worsen call your PCP, if no PCP go to Urgent Care Center or Emergency Room For 14/09 questions related to your inpatient stay or results of tests pending at discharge, please contact Dr. Connor Davis MD at Smoking is Dangerous to Your Health. Avoid second hand smoking
[2018-02-14] MEDS ORDERED: CLONIDINE HCL 0.1 MG PO SCH (21:00)
== END 2018-02-14 15:00 | disposition home or self-care (01) ==
LOC: NEPC 09:49 → NEDA 14:47 → H270 16:50
PROVIDERS: ADMIT Psychiatry & Neurology Child & Adolescent Psychiatry; ATTEND Psychiatry & Neurology Child & Adolescent Psychiatry